=== PATIENT | male | born 1970 | race African-American/Black ===

== ENCOUNTER 2020-05-27 09:37 | Outpatient (REF) | payer MEDICARE, MEDICAID, SELFPAY | END 2020-05-27 09:38 | disposition home or self-care (01) | LOC: HO.LAB 09:37 | PROVIDERS: Visit Provider Internal Medicine | DX: Z20.822 Contact with and (suspected) exposure to COVID-19 (principal) | CPT/HCPCS: 36415; C9803; U0003 ==

== ENCOUNTER 2020-10-09 15:12 | Outpatient (REF) | payer MEDICARE, MEDICAID, SELFPAY ==
[2020-10-09 15:31] LABS: COVID-19 Test Negative (Negative); IDNOW Serial# 55D5AD1C
== END 2020-10-09 15:13 | disposition home or self-care (01) ==
LOC: HO.LAB 15:12
PROVIDERS: Visit Provider Internal Medicine
DX: Z20.822 Contact with and (suspected) exposure to COVID-19 (principal)
CPT/HCPCS: 36415; 87635; C9803

== ENCOUNTER 2020-11-29 14:01 | Outpatient (REF) | payer MEDICARE, MEDICAID, SELFPAY ==
[2020-11-30 01:15] LABS: CT PCR NOT DETECTED (Not Detect.); NG PCR DETECTED (Not Detect.)
== END 2020-11-29 14:02 | disposition home or self-care (01) ==
LOC: HO.LNP 14:01
PROVIDERS: Visit Provider Hospitalist
DX: Z11.3 Encounter for screening for infections with a predominantly sexual mode of transmission (principal); R36.9 Urethral discharge, unspecified
CPT/HCPCS: 87086; 87491; 87591

== ENCOUNTER 2021-05-04 21:33 | Emergency (ER) | payer MEDICARE, MEDICAID, SELFPAY ==
[2021-05-04 21:36] VITALS: BP 110/64; PULSE 78; O2SAT 98
[2021-05-04 21:40] VITALS: BP 135/83; PULSE 80; RESP 20; TEMP 36.6; O2SAT 99; BMI 20.6
--- NOTE | 2021-05-04 21:54 | ED_ITS ---
HPI - Nausea/Vomiting/Diarrhea General Chief complaint: Nausea/Vomiting/Diarrhea Stated complaint: ANXIETY Time Seen by Provider: 05/04/21 21:53 Source: patient Mode of arrival: EMS Limitations: no limitations History of Present Illness HPI Narrative: 51-year-old male who presents emergency department for evaluatio n of nausea vomiting and abdominal pain. Patient states that he has been sick for months. He states that any time he eats the food goes down but when it hits the stomach it causes him to have pain and caused him to vomit. He states that the pain is a dull ache which is intermittent located throughout his entire abdomen. He also states that he gets heartburn like symptoms and he points to his epigastric area. He states that the pain is moderate to severe in intensity. He states that he has not been able to eat or drink for 1 week. He denies any weight loss. The patient does drink alcohol 2 to 3 times a week and he states he did have several nips of gin prior to coming to the emergency department. The patient states that he smokes 1-1/2 oz of marijuana daily. He occasionally uses intranasal cocaine and he states that he has been buying Percocet pills on the street and has been using them intranasally as well. Related Data Home Medications Medication Instructions Recorded Confirmed albuterol sulfate mg INHALATION Q6H PRN 09/18/20 02/14/21 albuterol sulfate 90 mcg/actuation 0 mcg INHALATION 09/18/20 02/14/21 aerosol inhaler albuterol sulfate 5 mg/mL(0.5 %) 5 mg INHALATION Q6H PRN 10/21/20 02/14/21 solution for nebulization omeprazole 20 mg capsule,delayed 20 mg PO DAILY 10/21/20 02/14/21 release Previous Rx's Medication Instructions Recorded diphenhydramine-zinc acetate 1 1 appl TOPICAL QID PRN #28.3 g 10/21/20 %-0.1 % topical cream (Benadryl Itch Stopping) loratadine 10 mg tablet (Claritin) 10 mg PO DAILY PRN #30 tab 10/21/20 prednisone 50 mg tablet 50 mg PO DAILY 5 Days #5 tab 02/22/21 Flovent HFA 110 mcg/actuation 1 puff PO BID #12 g NS 03/21/21 aerosol inhaler (fluticasone propionate) omeprazole 20 mg capsule,delayed 20 mg PO DAILY 30 Days #30 cap 05/05/21 release ondansetron 4 mg disintegrating 4 mg PO Q6-8H PRN #14 tab 05/05/21 tablet Allergies Allergy/AdvReac Type Severity Reaction Status Date / Time penicillin V Allergy Unknown Nausea and Verified 05/04/21 21:39 Vomiting Penicillins [PENICILLINS] Allergy Unknown NAUSEA/VOMI Verified 05/04/21 21:39 TING MUSCLE RELAXER Allergy Unknown FOAMING AT Uncoded 05/04/21 21:39 THE MOUTH - CANNOT REMEMBER NAME OF DRUG [facility] Past Medical History Medical History (Updated 05/05/21 @ 00:22 by Keith Fulton MD) Anxiety Depression ETOH abuse GERD (gastroesophageal reflux disease) Social History Social History Advance Directives: No Physical Exam Vital Signs: Vital Signs: Last Vital Signs Temp 97.9 F 05/04/21 21:40 Pulse 65 05/04/21 23:41 Resp 17 05/04/21 23:41 BP 135/83 05/04/21 21:40 Pulse Ox 99 05/04/21 21:40 BMI result Body Mass Index 20.6 Const: Other: Awake, alert, male patient, he is actively vomiting, he is able answer all questions appropriately, he was tearful at 1 point when he started to talk about his living situation and his polysubstance use disorder. HENMT: Head: Yes normal to inspection, Yes normocephalic and Yes atraumatic Ears: external ears normal General nose exam: Normal external nose present Face and sinus: Yes normal facial exam Mouth: Normal oral and palatal mucosa present Throat: Yes posterior oropharynx normal Eyes: General: appearance normal, both eyes and all related structures Pupils: Equal, round and reactive pupils present Neck: Neck: Yes normal visual inspection, Yes no lymphadenopathy, Yes trachea midline and Yes supple Chest: Chest palpation & inspection: normal inspection of the chest and normal palpation of entire chest wall Resp: Effort & Inspection: normal respiratory effort and able to speak in complete sentences Auscultation: clear to auscultation bilaterally Cardio: Rate: regular rate Rhythm: regular rhythm Heart sounds: S1 normal heart sound present, S2 normal heart sound present and no murmurs GI: Inspection: Yes normal to inspection Palpation (GI): Soft to palpation, Tenderness to palpation present (GI) ( Diffuse abdominal tenderness) and no guarding Auscultation: normal bowel sounds : General: Yes no CVA tenderness Back/Spine/Pelvis: Back: no CVA tenderness Skin: General skin exam: no rashes or lesions noted Neuro: Cranial nerves: Yes CN's II-XII intact bilaterally and Yes Equal, round and reactive pupils present Cognition (Neuro): normal cognition Motor exam (neuro): 5/5 motor strength present throughout Extrem: General: Yes normal to inspection Psych: Appearance: grossly normal Speech and movement: Normal speech and movement present Affect: normal affect Attitude: cooperative Thought process: Normal thought process present Thought content: Normal thought content present Course Course Course Narrative: 51-year-old male who presents emergency department for evaluation of nausea vomiting abdominal pain times months, worse in the last week. Patient states that anything that he eats or drinks causes him to have abdominal pain and then causes him to vomit. He has not had any weight loss. The patient does use marijuana multiple times daily. He also uses intranasal cocaine and oxycodone. Initial vital signs were normal. physical examination did reveal that he was actively vomiting. Abdominal exam revealed diffuse a bdominal tenderness. The differential includes but is not limited to bowel obstruction, gastritis/esophagitis, cannabis induced cyclic vomiting syndrome. I did order a CBC, CMP, lipase, troponin, alcohol, urinalysis, urine drug screen, COVID-19 test. I did order IV Zofran and IV fluid however the patient refused IV since he states that he needs to calm down prior to starting this intervention. The patient was ordered Haldol 5 mg orally, Zofran 4 mg ODT, and lorazepam 2 mg orally. 0017 : Laboratory evaluation: WBC was low at 3900. AST was elevated at 38. Blood alcohol level was elevated 151. Lipase was normal. COVID-19 was negative. Urinalysis was negative. The patient did feel better after receiving the oral Haldol, Zofran and lorazepam. The nurse was able to get an IV in him and he was also given Zofran 4 mg IV and normal saline x1 L with significant improvement of his symptoms. At this time, I suspect the patient may have cannabis hyperemesis syndrome and I did discuss this with him. The patient will be started on omeprazole 20 mg once a day for 1 month and Zofran ODT 4 mg every 6-8 hours as needed for nausea and vomiting. He was given verbal and printed instructions and discharged home. MDM - Nausea/Vomiting/Diarrhea Lab Data Result diagrams: 05/04/21 22:40 05/04/21 22:40 Labs: Lab Results 05/04/21 05/04/21 05/04/21 Range/Units 22:36 22:40 22:40 WBC 3.9 L (4.8-10.8) X10*3/uL RBC 4.46 L (4.60-5.80) X10*6/uL Hgb 13.3 L (14.0-18.0) g/dl Hct 39.6 L (42.0-52.0) % MCV 88.8 (80.0-98.0) fL MCH 29.8 (27.0-33.0) pg MCHC 33.6 (31.0-36.0) g/dl RDW 13.2 (11.0-16.0) % Plt Count 292 (160-400) X10*3/uL MPV 9.2 L (9.4-12.4) fL Immature Gran % (Auto) 0.3 (0.0-0.4) % Neut % (Auto) 40.5 L (45-73) % Lymph % (Auto) 38.1 (20-40) % [place] % (Auto) 19.8 H (2-11) % Eos % (Auto) 1.0 (0-4) % Baso % (Auto) 0.3 (0-2) % Lymph # (Auto) 1.5 (1.2-4.9) X10*3/uL [place] # (Auto) 0.8 (0.1-1.2) X10*3/uL Eos # (Auto) 0.0 (0.0-0.4) X10*3/uL Baso # (Auto) 0.0 (0.0-0.2) X10*3/uL Abs Immat Gran (auto) 0.01 (0.00-0.03) X10*3/uL Absolute Neuts (auto) 1.6 L (2.0-8.3) x10*3/uL Absolute Nucleated RBC 0.000 (0.0-0.012) X10*3/uL Nucleated RBC % (auto) 0.0 (0.0-0.2) /100WBC Sodium 139 (135-145) mmol/L Potassium 4.3 (3.3-5.1) mmol/L Chloride 105 (96-108) mmol/L Carbon Dioxide 24 (22-29) mmol/L Anion Gap 14 (12-20) BUN 7 L (9-16) mg/dL Creatinine 0.99 (0.5-1.4) mg/dL Estim Creat Clear Calc 84.2 Estimated GFR > 60 Random Glucose 100 (60-115) mg/dL Calcium 9.7 (8.4-10.2) mg/dL Total Bilirubin 0.2 (0.0-1.0) mg/dL AST 38 H (5-37) U/L ALT 32 (0-40) U/L Alkaline Phosphatase 94 (39-117) U/L Troponin I High Sens (<3.5-35.0) ng/L Total Protein 7.6 (6.5-8.0) g/dL Albumin 4.5 (3.5-5.0) g/dL Lipase 18 (8-78) U/L Ethyl Alcohol mg/dL COVID-19 ([facility]) Negative (Negative) COVID-19 Clin Com See Note 05/04/21 05/04/21 Range/Units 22:40 22:40 WBC (4.8-10.8) X10*3/uL RBC (4.60-5.80) X10*6/uL Hgb (14.0-18.0) g/dl Hct (42.0-52.0) % MCV (80.0-98.0) fL MCH (27.0-33.0) pg MCHC (31.0-36.0) g/dl RDW (11.0-16.0) % Plt Count (160-400) X10*3/uL MPV (9.4-12.4) fL Immature Gran % (Auto) (0.0-0.4) % Neut % (Auto) (45-73) % Lymph % (Auto) (20-40) % [place] % (Auto) (2-11) % Eos % (Auto) (0-4) % Baso % (Auto) (0-2) % Lymph # (Auto) (1.2-4.9) X10*3/uL [place] # (Auto) (0.1-1.2) X10*3/uL Eos # (Auto) (0.0-0.4) X10*3/uL Baso # (Auto) (0.0-0.2) X10*3/uL Abs Immat Gran (auto) (0.00-0.03) X10*3/uL Absolute Neuts (auto) (2.0-8.3) x10*3/uL Absolute Nucleated RBC (0.0-0.012) X10*3/uL Nucleated RBC % (auto) (0.0-0.2) /100WBC Sodium (135-145) mmol/L Potassium (3.3-5.1) mmol/L Chloride (96-108) mmol/L Carbon Dioxide (22-29) mmol/L Anion Gap (12-20) BUN (9-16) mg/dL Creatinine (0.5-1.4) mg/dL Estim Creat Clear Calc Estimated GFR Random Glucose (60-115) mg/dL Calcium (8.4-10.2) mg/dL Total Bilirubin (0.0-1.0) mg/dL AST (5-37) U/L ALT (0-40) U/L Alkaline Phosphatase (39-117) U/L Troponin I High Sens 4.8 (<3.5-35.0) ng/L Total Protein (6.5-8.0) g/dL Albumin (3.5-5.0) g/dL Lipase (8-78) U/L Ethyl Alcohol 151 mg/dL COVID-19 ([facility]) (Negative) COVID-19 Clin Com ECG Data Attestation: I personally reviewed and interpreted this ECG as follows: Interpretation: 2229 : Normal sinus rhythm with a rate of 70, normal [place] interval, QRS duration and QTC interval, no ST segment elevation, no ST segment depression, no PACs, no PVCs, inverted T-wave in V1. Discharge Plan Discharge Clinical Impression: Cyclic vomiting syndrome, Acute dehydration, Polysubstance dependence including opioid drug with daily use Gastritis Qualifiers: Gastritis type: unspecified gastritis Chronicity: acute Gastritis bleeding: without bleeding Qualified Code(s): K29.00 - Acute gastritis without bleeding Patient Disposition: Home, Self-Care Instructions: Cyclic Vomiting Syndrome (ED), Opioid Use Disorder (ED) Additional Instructions: Your laboratory evaluation was unremarkable. Your symptoms are consistent with cyclic vomiting syndrome which is most likely caused by your daily use of marijuana. Your abdominal pain is most likely caused by inflammation of your stomach (gastritis). I am prescribing Prilosec (omeprazole) 20 mg pills, take 1 pill once a day for 1 month. This will shut down the acid production your stomach and help your stomach heal. I am also prescribing Zofran ODT 4 mg pills, 1 pill dissolved in your mouth every 8 hours as needed for nausea and vomiting. It is important that you get help with your dependence on drugs (marijuana, cocaine and opiates). Continue to use of these drugs can lead to . You should consider getting into a detox program to help you get sober. Your are being discharged home with intranasal Narcan. If you are going to continue to use oxycodone and cocaine, you should make sure that there is a sober person with you that is not using drugs and that this person can administer intranasal Narcan in the event that you stop breathing. Follow-up with your doctor in 2 days. Please return to the emergency department if your symptoms get worse or if you develop any symptoms that are concerning to you. Prescriptions: New omeprazole 20 mg capsule,delayed release(DR/EC) 20 mg PO DAILY 30 Days Qty: 30 RF: 0 ondansetron 4 mg tablet,disintegrating 4 mg PO Q6-8H PRN (Reason: nausea and vomiting) Qty: 14 RF: 0 No Action Flovent HFA 110 mcg/actuation HFA aerosol inhaler 1 puff PO BID Qty: 12 RF: 3 albuterol sulfate 90 mcg/actuation HFA aerosol inhaler 0 mcg inhalation RF: 0 albuterol sulfate 2.5 mg /3 mL (0.083 %) solution for nebulization inhalation Q6H PRNRF: 0 albuterol sulfate 5 mg/mL solution for nebulization 5 mg inhalation Q6H PRNRF: 0 omeprazole 20 mg capsule,delayed release(DR/EC) 20 mg PO DAILY RF: 0 Benadryl Itch Stopping 1-0.1 % cream 1 appl topical QID PRN (Reason: itching) Qty: 28.3 RF: 0 loratadine [Claritin] 10 mg tablet 10 mg PO DAILY PRN (Reason: itch) Qty: 30 RF: 0 prednisone 50 mg tablet 50 mg PO DAILY 5 Days Qty: 5 RF: 0
--- NOTE | 2021-05-04 21:57 | ECG_ITS ---
Test Reason : NAUSEA/VOMITTING Blood Pressure : / mmHG Vent. Rate : 070 BPM Atrial Rate : 070 BPM P-R Int : 166 ms QRS Dur : 094 ms QT Int : 410 ms P-R-T Axes : 070 073 049 degrees QTc Int : 442 ms Normal sinus rhythm Possible Left atrial enlargement Borderline ECG When compared with ECG of 28-MAY-2019 10:19, Vent. rate has decreased BY 36 BPM Referred By: Keith Fulton Electronically Signed By:Rufus Higgins
--- NOTE | 2021-05-04 22:08 | PC.NURSE ---
MD at bedside multiple times discussing plan of care with pt. Pt repeatedly refusing IV and labs. Pt also refusing IM medications, states I have so much anxiety, I can't do needles!! MD aware that pt is noncompliant with care.
[2021-05-04] MEDS: LORazepam 1 MG TABLET 2 MG PO (22:31)
[2021-05-04] MEDS: Ondansetron ODT 4 MG TAB.RAPDIS TRANSLINGU (22:31)
[2021-05-04] MEDS: HaloperidoL 5 MG TABLET PO (22:31)
--- NOTE | 2021-05-04 22:37 | PC.NURSE ---
process tech at bedside for EKG and Covid swab. Pt medicated per JUL. Pt continues refusing labs and IV.
[2021-05-04 22:44] LABS: MANUAL DIFF FLAG NO
[2021-05-04 22:46] LABS: Basophils Percent Auto 0.3 % (0-2); Hematocrit 39.6 % (42.0-52.0); Hemoglobin 13.3 g/dl (14.0-18.0); Imm Gran Abs Auto 0.01 X10*3/uL (0.00-0.03); Imm Gran Pct Auto 0.3 % (0.0-0.4); Lymphocytes Absolute Auto 1.5 X10*3/uL (1.2-4.9); Lymphocytes Percent Auto 38.1 % (20-40); Mean Corpuscular HGB Conc 33.6 g/dl (31.0-36.0); Mean Corpuscular Hemoglobin 29.8 pg (27.0-33.0); Mean Corpuscular Volume 88.8 fL (80.0-98.0); Mean Platelet Volume 9.2 fL (9.4-12.4); Monocytes Absolute Auto 0.8 X10*3/uL (0.1-1.2); Monocytes Percent Auto 19.8 % (2-11); Neutrophils Absolute Auto 1.6 x10*3/uL (2.0-8.3); Neutrophils Percent Auto 40.5 % (45-73); Platelet Count 292 X10*3/uL (160-400); Red Blood Count 4.46 X10*6/uL (4.60-5.80); Red Cell Distribution Width 13.2 % (11.0-16.0); White Blood Count 3.9 X10*3/uL (4.8-10.8)
[2021-05-04 23:03] LABS: COVID-19 Test Negative (Negative)
[2021-05-04 23:06] LABS: Ethanol 151 mg/dL
[2021-05-04 23:09] LABS: Alanine Aminotransferase 32 U/L (0-40); Albumin Level 4.5 g/dL (3.5-5.0); Alkaline Phosphatase 94 U/L (39-117); Anion Gap 14 (12-20); Aspartate Amino Transferase 38 U/L (5-37); Bilirubin Total 0.2 mg/dL (0.0-1.0); Blood Urea Nitrogen 7 mg/dL (9-16); Calcium 9.7 mg/dL (8.4-10.2); Carbon Dioxide 24 mmol/L (22-29); Chloride 105 mmol/L (96-108); Creatinine Clr Calc Pharmacy 84.2; Estimated Glomerular Filt Rate > 60; Glucose Random 100 mg/dL (60-115); Lipase 18 U/L (8-78); Potassium 4.3 mmol/L (3.3-5.1); Sodium 139 mmol/L (135-145); Total Protein 7.6 g/dL (6.5-8.0)
[2021-05-04 23:15] LABS: Troponin-I High Sensitivity 4.8 ng/L (<3.5-35.0)
[2021-05-04 23:41] VITALS: PULSE 65; RESP 17
--- NOTE | 2021-05-05 00:13 | PC.NURSE ---
MD at bedside discussing results and plan of care.
[2021-05-05] MEDS: Naloxone HCl Nasal TAKE HOME 4 MG SPRAY NOSTRILALT (00:28)
== END 2021-05-05 00:35 | disposition home or self-care (01) ==
PROVIDERS: Emergency Provider Emergency Medicine Emergency Medical Services; PCP Family Medicine
DX: K29.00 Acute gastritis without bleeding (principal); R11.15 Cyclical vomiting syndrome unrelated to migraine; E86.0 Dehydration; F10.10 Alcohol abuse, uncomplicated; Y90.6 Blood alcohol level of 120-199 mg/100 ml; Z20.822 Contact with and (suspected) exposure to COVID-19; F41.9 Anxiety disorder, unspecified; F11.20 Opioid dependence, uncomplicated; F19.20 Other psychoactive substance dependence, uncomplicated; F12.90 Cannabis use, unspecified, uncomplicated; F14.90 Cocaine use, unspecified, uncomplicated
CPT/HCPCS: 36415; 80053; 82077; 83690; 84484; 85025; 87635; 93005; 96361; 96374; 99283; 99284

== ENCOUNTER 2021-06-22 13:45 | Emergency (ER) | payer MEDICARE, MEDICAID, SELFPAY ==
[2021-06-22 13:50] VITALS: BP 133/88; PULSE 82; RESP 16; TEMP 36.6; O2SAT 98; BMI 21.4
--- NOTE | 2021-06-22 14:09 | ED.EXTPRO ---
HPI - Extremity Problem General Chief complaint: Extremity Problem Stated complaint: hand swelling Time Seen by Provider: 06/22/21 14:08 Source: patient Mode of arrival: ambulatory Limitations: no limitations History of Present Illness HPI Narrative: Patient is a 51 year old male presenting to the emergency department today with right hand pain. Patient states that he has an extensive history of gout, and he is having an active flare in his right hand. Patient states he has been unable to contact his primary care provider. Patient denies any dizziness, lightheadedness, abdominal pain, nausea, vomiting, fever, chills, blurry vision, double vision, loss of vision, chest pain, difficulty breathing, shortness of breath, back pain, night sweats, pain with urination, increased urinary frequency, increased urinary urgency, blood in his urine or stool, syncope or a near syncopal episode, recent trauma or falls, bowel incontinence, bladder incontinence, bowel retention, bladder retention, or any other complaints at this time. MD Complaint: other (Right hand pain) Onset (ago): month(s) (1) Pain Consistency: constant Location: right (And) Severity scale (1-10): 3 Quality: dull Radiation: none Relieving factors: nothing Exacerbating factors: nothing Associated symptoms: denies other symptoms Related Data Home Medications Medication Instructions Recorded Confirmed albuterol sulfate mg INHALATION Q6H PRN 09/18/20 02/14/21 albuterol sulfate 90 mcg/actuation 0 mcg INHALATION 09/18/20 02/14/21 aerosol inhaler albuterol sulfate 5 mg/mL(0.5 %) 5 mg INHALATION Q6H PRN 10/21/20 02/14/21 solution for nebulization omeprazole 20 mg capsule,delayed 20 mg PO DAILY 10/21/20 02/14/21 release Previous Rx's Medication Instructions Recorded diphenhydramine-zinc acetate 1 1 appl TOPICAL QID PRN #28.3 g 10/21/20 %-0.1 % topical cream (Benadryl Itch Stopping) loratadine 10 mg tablet (Claritin) 10 mg PO DAILY PRN #30 tab 10/21/20 prednisone 50 mg tablet 50 mg PO DAILY 5 Days #5 tab 02/22/21 Flovent HFA 110 mcg/actuation 1 puff PO BID #12 g NS 03/21/21 aerosol inhaler (fluticasone propionate) omeprazole 20 mg capsule,delayed 20 mg PO DAILY 30 Days #30 cap 05/05/21 release ondansetron 4 mg disintegrating 4 mg PO Q6-8H PRN #14 tab 05/05/21 tablet naproxen 500 mg tablet 500 mg PO BID 7 Days #14 tab 06/22/21 Allergies Allergy/AdvReac Type Severity Reaction Status Date / Time penicillin V Allergy Unknown Nausea and Verified 05/04/21 21:39 Vomiting Penicillins [PENICILLINS] Allergy Unknown NAUSEA/VOMI Verified 05/04/21 21:39 TING MUSCLE RELAXER Allergy Unknown FOAMING AT Uncoded 05/04/21 21:39 THE MOUTH - CANNOT REMEMBER NAME OF DRUG Review of Systems Constitutional: Constitutional: Reports no additional constitutional complaints, Denies chills, Denies fever(s) and Denies night sweats Eyes: Eyes: Reports no additional eye complaints, Denies blurry vision, Denies change in vision, Denies diplopia, Denies eye discharge, Denies loss of vision and Denies eye pain ENT: Denies dizziness Cardiovascular: Cardiovascular: Reports no additional cardiovascular complaints, Denies chest pain, Denies lightheadedness, Denies Loss of Consciousness and Denies dyspnea Respiratory: Respiratory: Reports no additional respiratory complaints and Denies dyspnea Gastrointestinal: Gastrointestinal: Reports no additional gastrointestinal complaints, Denies abdominal pain, Denies melena, Denies hematochezia, Denies change in bowel habits and Denies change in stool character Genitourinary: Genitourinary: Reports no additional male genitourinary complaints, Denies hematuria, Denies oliguria, Denies difficulty urinating, Denies dysuria, Denies urinary frequency, Denies urinary hesitancy, Denies urinary incontinence and Denies urinary urgency Comments: Right hand pain Musculoskeletal: Musculoskeletal: Reports no additional musculoskeletal complaints, Denies numbness and Denies tingling Neurologic: Denies dizziness, Denies loss of vision, Denies numbness and Denies tingling Psychiatric: Psychiatric: Reports no additional psychiatric complaints Endocrine: Endocrine: Reports no additional endocrine complaints Hematologic/Lymphatic: Hematologic/Lymphatic: Reports no additional hematologic/lymphatic complaints Allergic/Immunologic: Allergic/Immunologic: Reports no additional allergic/immunologic complaints PMFSH Past Medical History Attestation statement: The following information was validated with the patient. Source: old records reviewed Medical History Anxiety Depression ETOH abuse GERD (gastroesophageal reflux disease) Social History Social History Advance Directives: No Advance Directives Information Provided: No Physical Exam Vital Signs: Vital Signs: Last Vital Signs Temp 98 F 06/22/21 13:50 Pulse 82 06/22/21 13:50 Resp 16 06/22/21 13:50 BP 133/88 06/22/21 13:50 Pulse Ox 98 06/22/21 13:50 BMI result Body Mass Index 21.4 Const: General: cooperative, no acute distress, alert and awake Nutritional Appearance: well nourished Orientation/consciousness: patient oriented x3 Limitations: no limitations HENMT: Head: Yes normal to inspection and Yes atraumatic Ears: hearing grossly normal bilaterally and external ears normal General nose exam: Normal external nose present, no nasal discharge noted and no epistaxis Face and sinus: Yes normal facial exam, No abrasion and No laceration Mouth: Normal oral and palatal mucosa present, no drooling and no muffled voice Eyes: General: appearance normal, both eyes and all related structures Periorbital: periorbital findings normal Eyelids: Yes eyelids normal Conjunctivae: conjunctivae normal Pupils: Equal, round and reactive pupils present EOM: EOMs intact bilaterally Neck: Neck: Yes normal visual inspection, Yes full ROM and Yes no lymphadenopathy Chest: Chest palpation & inspection: normal inspection of the chest Resp: Effort & Inspection: normal respiratory effort and able to speak in complete sentences GI: Inspection: Yes normal to inspection Neuro: General: patient oriented x3 and moves all extremities Cranial nerves: Yes Equal, round and reactive pupils present Cognition (Neuro): normal cognition Motor exam (neuro): 5/5 motor strength present throughout Sensory Exam: Normal double simultaneous stimulation for sensation Coordination: [id number] test normal Extrem: General: Yes normal to inspection, Yes full ROM and Yes capillary refill normal Psych: Appearance: grossly normal Mental Status: mental status grossly normal Affect: normal affect Attitude: cooperative Thought process: Normal thought process present Thought content: Normal thought content present Insight: Good insight present (Psych) MDM - Extremity (Nontraumatic) MDM Narrative Medical decision making narrative: Patient is a 51 year old male presenting to the emergency department today with a gout flare in the right hand. Patient's physical exam showed mild swelling to the right hand. I explained my physical exam findings as well to the patient. I answered all questions asked by the patient. I stressed the importance of the patient taking his medication as prescribed. I stressed the importance of the patient following up with his primary care provider. I stressed the importance of the patient returning to the emergency department immediately if his symptoms were to worsen or if he were to develop any dizziness, shortness of breath, difficulty breathing, chest pain, blurry vision, loss of vision, nausea, vomiting, abdominal pain, fever, chills, back pain, or any other complaints. Patient verbalized agreement and understanding with this treatment plan and discharge. Differential Diagnosis Differential diagnosis: Likely gout Medical Records Attestation: I reviewed the patient's medical records. Discharge Plan Discharge Clinical Impression: Gout Patient Disposition: Home, Self-Care Instructions: Gout (ED) Additional Instructions: Follow up with your primary care provider. Return to the emergency department immediately if your symptoms worsen or if you develop any dizziness, shortness of breath, difficulty breathing, chest pain, blurry vision, loss of vision, nausea, vomiting, abdominal pain, fever, chills, back pain, or any other complaints. Prescriptions: New naproxen 500 mg tablet 500 mg PO BID 7 Days Qty: 14 0RF No Action Flovent HFA 110 mcg/actuation HFA aerosol inhaler 1 puff PO BID Qty: 12 3RF omeprazole 20 mg capsule,delayed release(DR/EC) 20 mg PO DAILY 30 Days Qty: 30 0RF ondansetron 4 mg tablet,disintegrating 4 mg PO Q6-8H PRN (Reason: nausea and vomiting) Qty: 14 0RF albuterol sulfate 90 mcg/actuation HFA aerosol inhaler 0 mcg inhalation 0RF albuterol sulfate 2.5 mg /3 mL (0.083 %) solution for nebulization inhalation Q6H PRN0RF albuterol sulfate 5 mg/mL solution for nebulization 5 mg inhalation Q6H PRN0RF omeprazole 20 mg capsule,delayed release(DR/EC) 20 mg PO DAILY 0RF Benadryl Itch Stopping 1-0.1 % cream 1 appl topical QID PRN (Reason: itching) Qty: 28.3 0RF loratadine [Claritin] 10 mg tablet 10 mg PO DAILY PRN (Reason: itch) Qty: 30 0RF prednisone 50 mg tablet 50 mg PO DAILY 5 Days Qty: 5 0RF Referrals: Noel Balderas MD [Physician] - 2 days Interventions: ED Discharge Assessment Last Done: 06/22/21 14:25 Discharge Date/Time: 06/22/21 14:26 Print Language: Hungarian
== END 2021-06-22 14:26 | disposition home or self-care (01) ==
LOC: HO.ED 14:20
PROVIDERS: Emergency Provider Emergency Medicine
DX: M10.9 Gout, unspecified (principal); R60.0 Localized edema; Z79.899 Other long term (current) drug therapy
CPT/HCPCS: 29125; 99284

== ENCOUNTER 2021-10-06 02:02 | Emergency (ER) | payer OTHER, SELFPAY ==
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
[2021-10-06 02:11] VITALS: BP 128/96; PULSE 94; RESP 18; TEMP 36.8; O2SAT 96; BMI 20.9
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
[2021-10-06] MEDS: Acetaminophen 325 MG TABLET 975 MG PO (04:54)
[2021-10-06] MEDS: Ketorolac Tromethamine 15 MG/ML VIAL IM (04:55)
[2021-10-06] MEDS: Lidocaine 4 % Patch ADH..PATCH 1 PATCH TRANSDERMA (04:55)
== END 2021-10-06 05:09 | disposition home or self-care (01) ==
PROVIDERS: Emergency Provider Student in an Organized Health Care Education/Training Program
DX: S49.91XA Unspecified injury of right shoulder and upper arm, initial encounter (principal); M25.511 Pain in right shoulder; V43.52XA Car driver injured in collision with other type car in traffic accident, initial encounter; Y93.9 Activity, unspecified; Y92.410 Unspecified street and highway as the place of occurrence of the external cause; Y99.9 Unspecified external cause status; Z79.899 Other long term (current) drug therapy
CPT/HCPCS: 73030; 96372; 99282; 99284; J1885

== ENCOUNTER 2021-11-04 21:28 | Emergency (ER) | payer MEDICARE, MEDICAID, SELFPAY ==
--- NOTE | 2021-11-04 | ECG_ITS ---
Test Reason : CHEST PAIN Blood Pressure : / mmHG Vent. Rate : 086 BPM Atrial Rate : 086 BPM P-R Int : 148 ms QRS Dur : 084 ms QT Int : 360 ms P-R-T Axes : 065 071 052 degrees QTc Int : 430 ms Normal sinus rhythm Minimal voltage criteria for LVH, may be normal variant ( Sokolow-Duong ) Borderline ECG When compared with ECG of 04-MAY-2021 22:29, No significant change was found Referred By: Generic ED Physician Electronically Signed By:JOHANNA CRESPO
--- NOTE | ~2021-11-04 | CT_ITS ---
EXAMINATION: CT ABDOMEN AND PELVIS WITHOUT CONTRAST CLINICAL INFORMATION: Flank pain. COMPARISON: None TECHNIQUE: Multidetector volumetric imaging was performed from the superior aspect of the liver through the pubic symphysis. Sagittal and coronal reformatted images were obtained on the technologist's workstation. This CT examination was performed using dose optimization techniques as appropriate, variously including the following: *Automated exposure control *Adjustment of mA and/or kV according to patient size (this includes techniques or standardized protocols for targeted exams where dose is matched to indication/reason for exam; i.e. extremities or head) *Use of iterative reconstruction technique DLP: 428 mGy-cm FINDINGS: LUNG BASES: The visualized lung bases are unremarkable. LIVER, GALLBLADDER, AND BILIARY TREE: The liver is normal in size, shape, and attenuation. No focal hepatic lesion or biliary ductal dilatation is present. The gallbladder is unremarkable with no evidence of radiopaque gallstones, gallbladder wall thickening, or obvious pericholecystic inflammatory changes. PANCREAS: Unremarkable. SPLEEN: Unremarkable. ADRENAL GLANDS: Unremarkable. KIDNEYS AND URETERS: The kidneys are normal in size, shape, and attenuation. No hydronephrosis, hydroureter, or calculi seen. No perinephric stranding. BLADDER: Unremarkable. GASTROINTESTINAL TRACT: The stomach is unremarkable. Normal caliber small bowel. There is no obstruction. No colonic wall thickening or inflammatory change. Scattered colonic diverticulosis without diverticulitis. Normal appendix. No free air or free fluid. ABDOMINAL WALL: No significant hernia is appreciated. LYMPH NODES: Normal. VASCULAR: Unremarkable. PELVIC VISCERA: The prostate and seminal vesicles are unremarkable. OSSEOUS STRUCTURES: No acute or suspicious osseous abnormality. Mild degenerative changes of the hips. CT/CT abdomen pelvis wo con IMPRESSION: No acute findings. No hydronephrosis or nephrolithiasis. There is colonic diverticulosis without evidence of acute diverticulitis. Fleischner guidelines were followed.
[2021-11-04 21:50] VITALS: BP 114/79; PULSE 86; RESP 15; TEMP 36.8; O2SAT 97; BMI 21.7
[2021-11-04 22:09] LABS: Basophils Percent Auto 0.7 % (0-2); Eosinophils Absolute Auto 0.1 X10*3/uL (0.0-0.4); Eosinophils Percent Auto 1.1 % (0-4); Hematocrit 39.3 % (42.0-52.0); Imm Gran Abs Auto 0.01 X10*3/uL (0.00-0.03); Imm Gran Pct Auto 0.2 % (0.0-0.4); Lymphocytes Absolute Auto 1.4 X10*3/uL (1.2-4.9); Lymphocytes Percent Auto 32.4 % (20-40); MANUAL DIFF FLAG SCAN; Mean Corpuscular HGB Conc 33.1 g/dl (31.0-36.0); Mean Corpuscular Hemoglobin 29.3 pg (27.0-33.0); Mean Corpuscular Volume 88.7 fL (80.0-98.0); Monocytes Absolute Auto 1.2 X10*3/uL (0.1-1.2); Monocytes Percent Auto 26.9 % (2-11); Neutrophils Absolute Auto 1.7 x10*3/uL (2.0-8.3); Neutrophils Percent Auto 38.7 % (45-73); Platelet Count 237 X10*3/uL (160-400); Red Blood Count 4.43 X10*6/uL (4.60-5.80); Red Cell Distribution Width 13.4 % (11.0-16.0); SCAN SMEAR FLAG 1; White Blood Count 4.4 X10*3/uL (4.8-10.8)
[2021-11-04 22:39] LABS: SLIDE REVIEW VERIFIED
[2021-11-04 22:48] LABS: Alanine Aminotransferase 31 U/L (0-40); Albumin Level 4.5 g/dL (3.5-5.0); Alkaline Phosphatase 119 U/L (39-117); Anion Gap 15 (12-20); Aspartate Amino Transferase 41 U/L (5-37); Bilirubin Total 0.4 mg/dL (0.0-1.0); Blood Urea Nitrogen 10 mg/dL (9-16); Calcium 9.4 mg/dL (8.4-10.2); Carbon Dioxide 23 mmol/L (22-29); Chloride 106 mmol/L (96-108); Creatinine Clr Calc Pharmacy 93.2; Estimated Glomerular Filt Rate > 60; Glucose Random 86 mg/dL (60-115); Potassium 4.3 mmol/L (3.3-5.1); Sodium 140 mmol/L (135-145); Total Protein 7.7 g/dL (6.5-8.0)
[2021-11-04 22:49] LABS: Alanine Aminotransferase 33 U/L (0-40); Albumin Level 4.5 g/dL (3.5-5.0); Alkaline Phosphatase 121 U/L (39-117); Aspartate Amino Transferase 41 U/L (5-37); Bilirubin Direct 0.2 mg/dL (0.0-0.5); Bilirubin Total 0.4 mg/dL (0.0-1.0); Lipase 15 U/L (8-78); Total Protein 7.8 g/dL (6.5-8.0)
[2021-11-04 22:50] LABS: Troponin-I High Sensitivity 4.2 ng/L (<3.5-35.0)
--- NOTE | 2021-11-04 23:36 | ED_ITS ---
HPI - Abdominal Pain General Chief Complaint: Abdominal Pain Stated Complaint: Chest pain Source: patient Mode of arrival: ambulatory Limitations: no limitations History of Present Illness HPI narrative: 51-year-old male presents for right-sided chest and flank pain, right upper abdominal pain, and fatigue. States that the pain radiates to his right shoulder. He does drink alcohol but not on a regular basis. He does not report fevers, chills, chest pressure, palpitations, dizziness, weakness, diaphoresis, abdominal distention dysuria, hematuria or weakness. MD elicited complaint: abdominal pain and flank pain Pertinent past history: none Onset (ago): day(s) (2) Pain Consistency: constant Location: RUQ and R flank Severity: moderate Pain scale (0-10): 7 Quality: aching Radiation: none Migration to: no migration Exacerbating factors: eating and movement Relieving factors: nothing Associated symptoms: denies other symptoms Related Data Home Medications Medication Instructions Recorded Confirmed albuterol sulfate mg inhalation Q6H PRN 09/18/20 02/14/21 albuterol sulfate 90 mcg/actuation 0 mcg inhalation 09/18/20 02/14/21 aerosol inhaler albuterol sulfate 5 mg/mL(0.5 %) 5 mg inhalation Q6H PRN 10/21/20 02/14/21 solution for nebulization omeprazole 20 mg capsule,delayed 20 mg PO DAILY 10/21/20 02/14/21 release Previous Rx's Medication Instructions Recorded diphenhydramine-zinc acetate 1 1 appl topical QID PRN itching 10/21/20 %-0.1 % topical cream (Benadryl #28.3 grams Itch Stopping) loratadine 10 mg tablet (Claritin) 10 mg PO DAILY PRN itch #30 tabs 10/21/20 prednisone 50 mg tablet 50 mg PO DAILY 5 days #5 tabs 02/22/21 Flovent HFA 110 mcg/actuation 1 puff PO BID #12 grams 03/21/21 aerosol inhaler (fluticasone propionate) omeprazole 20 mg capsule,delayed 20 mg PO DAILY 30 days #30 caps 05/05/21 release ondansetron 4 mg disintegrating 4 mg PO Q6-8H PRN nausea and 05/05/21 tablet vomiting #14 tabs naproxen 500 mg tablet 500 mg PO BID 7 days #14 tabs 06/22/21 Allergies Allergy/AdvReac Type Severity Reaction Status Date / Time penicillin V Allergy Unknown Nausea and Verified 10/06/21 02:10 Vomiting Penicillins [PENICILLINS] Allergy Unknown NAUSEA/VOMI Verified 10/06/21 02:10 TING MUSCLE RELAXER Allergy Unknown FOAMING AT Uncoded 10/06/21 02:10 THE MOUTH - CANNOT REMEMBER NAME OF DRUG Review of Systems Review of Systems Constitutional: No Fever, No Chills ENT/Mouth: No Ear Pain, No Hoarseness, No sore throat Eyes: No Eye Pain, No Swelling, No Redness, No Foreign Body Cardiovascular: Positive right-sided Chest Pain, No SOB Respiratory: No Cough, No Dyspnea Gastrointestinal: No Nausea, No Vomiting, No Diarrhea, positive abdominal Pain, positive right flank pain Genitourinary: No Dysuria, No Hematuria Musculoskeletal: No joint pain, No Myalgias, No Joint Swelling Skin: No Skin lacerations, No rash Neuro: No Weakness, No Numbness, No Paresthesias, No Loss of Consciousness, No Dizziness, No Headache Psych: No Anxiety/Panic, No Depression Heme/Lymph: no easy bruising, no Lymphadenopathy Endocrine: No Polyuria, No Polydipsia Yes all other systems are reviewed and are negative [facility] Past Medical History Attestation statement: The following information was validated with the patient. Source: old records reviewed Medical History Anxiety Depression ETOH abuse GERD (gastroesophageal reflux disease) Social History Social History Advance Directives: No Advance Directives Information Provided: Yes Physical Exam ED Vital Signs: Vital Signs - 24 hr 11/04/21 21:50 11/04/21 23:58 Temperature 98.2 F 98.4 F Pulse Rate 86 67 Respiratory Rate 15 16 Blood Pressure 114/79 119/75 Pulse Oximetry 97 98 Oxygen Delivery Method Room Air Room Air BMI result Body Mass Index 21.7 Appearance: Alert. Oriented X3. Mild distress. Eyes: Pupils equal, round and reactive to light. EOMI. Sclera nonicteric. ENT: Pharynx normal. Moist mucous membranes. Neck: Normal inspection. Neck supple. No JVD. CVS: Normal heart rate and rhythm. Apical pulse equal pulses to extremities. Respiratory: No respiratory distress. Breath sounds normal. Abdomen: Soft and tender to palpation. Positive Lucero's, negative McBurney's. No rigidity or distention. No pedal splenomegaly. Skin: Skin warm and dry. Normal skin color. Normal skin turgor. Extremities: No lower extremity edema. Moves all extremities against resistance. Get well-balanced well-coordinated Neuro: No motor deficit. No sensory deficit. Cranial nerves 2-12 intact Course Course Course Narrative: 51-year-old male presents with right upper quadrant and right chest wall pain that radiates to the right scapula and his back. Pain is worse on palpation, states that he took some Advil but could not get comfortable. he does drink alcohol but not in the past few days. He denies fevers, chills, nausea, vomiting, diarrhea, abdominal distention, lightheadedness, dizziness, weakness and palpitations. Physical exam indicates positive McBurney, no distention or rigidity. Labs drawn while patient was in the emergency department waiting room indicating elevated LFTs. Will order CT scan of abdomen pelvis. EKG normal sinus. 00:15 patient respectfully declined medications. Patient's wishes respected. sign out to dr cabrera. ct scan pending. 11/05/2021, 16:00. Patient was discharged last night CT scan was negative. Chart not completed at that time for downtime. MDM - Abdominal Pain Differential Diagnosis Differential diagnosis: Likely abdominal pain, acute appendicitis, calculus of kidney, diverticulitis, pancreatitis and renal colic Differential diagnosis narrative:: Cholecystitis, cholelithiasis Medical Records Attestation: I reviewed the patient's medical records. Lab Data Attestation: I reviewed the patient's lab results. Result diagrams: 11/04/21 22:03 11/04/21 22:03 Labs: Lab Results 11/04/21 11/04/21 11/04/21 Range/Units 22:03 22:03 22:03 WBC 4.4 L (4.8-10.8) X10*3/uL RBC 4.43 L (4.60-5.80) X10*6/uL Hgb 13.0 L (14.0-18.0) g/dl Hct 39.3 L (42.0-52.0) % MCV 88.7 (80.0-98.0) fL MCH 29.3 (27.0-33.0) pg MCHC 33.1 (31.0-36.0) g/dl RDW 13.4 (11.0-16.0) % Plt Count 237 (160-400) X10*3/uL MPV 9.0 L (9.4-12.4) fL Immature Gran % (Auto) 0.2 (0.0-0.4) % Neut % (Auto) 38.7 L (45-73) % Lymph % (Auto) 32.4 (20-40) % Lamar % (Auto) 26.9 H (2-11) % Eos % (Auto) 1.1 (0-4) % Baso % (Auto) 0.7 (0-2) % Lymph # (Auto) 1.4 (1.2-4.9) X10*3/uL Lamar # (Auto) 1.2 (0.1-1.2) X10*3/uL Eos # (Auto) 0.1 (0.0-0.4) X10*3/uL Baso # (Auto) 0.0 (0.0-0.2) X10*3/uL Abs Immat Gran (auto) 0.01 (0.00-0.03) X10*3/uL Absolute Neuts (auto) 1.7 L (2.0-8.3) x10*3/uL Absolute Nucleated RBC 0.000 (0.0-0.012) X10*3/uL Nucleated RBC % (auto) 0.0 (0.0-0.2) /100WBC Smear Tech's Comments VERIFIED Sodium 140 (135-145) mmol/L Potassium 4.3 (3.3-5.1) mmol/L Chloride 106 (96-108) mmol/L Carbon Dioxide 23 (22-29) mmol/L Anion Gap 15 (12-20) BUN 10 (9-16) mg/dL Creatinine 0.94 (0.5-1.4) mg/dL Estim Creat Clear Calc 93.2 Estimated GFR > 60 Random Glucose 86 (60-115) mg/dL Calcium 9.4 (8.4-10.2) mg/dL Total Bilirubin 0.4 (0.0-1.0) mg/dL Direct Bilirubin (0.0-0.5) mg/dL AST 41 H (5-37) U/L ALT 31 (0-40) U/L Alkaline Phosphatase 119 H D (39-117) U/L Troponin I High Sens 4.2 (<3.5-35.0) ng/L Total Protein 7.7 (6.5-8.0) g/dL Albumin 4.5 (3.5-5.0) g/dL Lipase (8-78) U/L COVID-19 (ARAM) (Negative) COVID-19 Clin Com 11/04/21 11/05/21 Range/Units 22:03 00:11 WBC (4.8-10.8) X10*3/uL RBC (4.60-5.80) X10*6/uL Hgb (14.0-18.0) g/dl Hct (42.0-52.0) % MCV (80.0-98.0) fL MCH (27.0-33.0) pg MCHC (31.0-36.0) g/dl RDW (11.0-16.0) % Plt Count (160-400) X10*3/uL MPV (9.4-12.4) fL Immature Gran % (Auto) (0.0-0.4) % Neut % (Auto) (45-73) % Lymph % (Auto) (20-40) % Lamar % (Auto) (2-11) % Eos % (Auto) (0-4) % Baso % (Auto) (0-2) % Lymph # (Auto) (1.2-4.9) X10*3/uL Lamar # (Auto) (0.1-1.2) X10*3/uL Eos # (Auto) (0.0-0.4) X10*3/uL Baso # (Auto) (0.0-0.2) X10*3/uL Abs Immat Gran (auto) (0.00-0.03) X10*3/uL Absolute Neuts (auto) (2.0-8.3) x10*3/uL Absolute Nucleated RBC (0.0-0.012) X10*3/uL Nucleated RBC % (auto) (0.0-0.2) /100WBC Smear Tech's Comments Sodium (135-145) mmol/L Potassium (3.3-5.1) mmol/L Chloride (96-108) mmol/L Carbon Dioxide (22-29) mmol/L Anion Gap (12-20) BUN (9-16) mg/dL Creatinine (0.5-1.4) mg/dL Estim Creat Clear Calc Estimated GFR Random Glucose (60-115) mg/dL Calcium (8.4-10.2) mg/dL Total Bilirubin 0.4 (0.0-1.0) mg/dL Direct Bilirubin 0.2 (0.0-0.5) mg/dL AST 41 H (5-37) U/L ALT 33 (0-40) U/L Alkaline Phosphatase 121 H (39-117) U/L Troponin I High Sens (<3.5-35.0) ng/L Total Protein 7.8 (6.5-8.0) g/dL Albumin 4.5 (3.5-5.0) g/dL Lipase 15 (8-78) U/L COVID-19 (ARAM) Negative (Negative) COVID-19 Clin Com See Note ECG Data Attestation: I personally reviewed and interpreted this ECG as follows: ECG interpretation date: 11/04/21 ECG interpretation time: 21:27 Prior ECG tracings: available for review Interpretation: Vent. rate 86 BPM HI interval 148 ms QRS duration 84 ms QT/QTc 360/430 ms P-R-T axes 65 71 52 Normal sinus rhythm Minimal voltage criteria for LVH, may be normal variant ( Sokolow-Duong ) Borderline ECG When compared with ECG of 04-MAY-2021 22:29, No significant change was found Discharge Plan Discharge Clinical Impression: Abdominal pain Patient Disposition: Home, Self-Care Instructions: Abdominal Pain (ED) Additional Instructions: CT scan negative. Follow-up with Dr. Klein Thank you for choosing this emergency department for evaluation. Please follow-up with primary care physician as needed. Return to the emergency department for any new, concerning, or worsening symptoms. Prescriptions: No Action Flovent HFA 110 mcg/actuation HFA aerosol inhaler 1 puff PO BID Qty: 12 3RF naproxen 500 mg tablet 500 mg PO BID 7 Days Qty: 14 0RF omeprazole 20 mg capsule,delayed release(DR/EC) 20 mg PO DAILY 30 Days Qty: 30 0RF ondansetron 4 mg tablet,disintegrating 4 mg PO Q6-8H PRN (Reason: nausea and vomiting) Qty: 14 0RF albuterol sulfate 90 mcg/actuation HFA aerosol inhaler 0 mcg inhalation albuterol sulfate 2.5 mg /3 mL (0.083 %) solution for nebulization inhalation Q6H PRN albuterol sulfate 5 mg/mL solution for nebulization 5 mg inhalation Q6H PRN omeprazole 20 mg capsule,delayed release(DR/EC) 20 mg PO DAILY Benadryl Itch Stopping 1-0.1 % cream 1 appl topical QID PRN (Reason: itching) Qty: 28.3 0RF loratadine [Claritin] 10 mg tablet 10 mg PO DAILY PRN (Reason: itch) Qty: 30 0RF prednisone 50 mg tablet 50 mg PO DAILY 5 Days Qty: 5 0RF Discharge Date/Time: 11/05/21 01:43
[2021-11-04 23:58] VITALS: BP 119/75; PULSE 67; RESP 16; TEMP 36.9; O2SAT 98
--- NOTE | 2021-11-05 00:03 | PC.NURSE ---
pt declined all medication - reports that pain is chronic and he is tolerating it.
[2021-11-05 00:31] LABS: COVID-19 Test Negative (Negative)
== END 2021-11-05 01:43 | disposition home or self-care (01) ==
PROVIDERS: Nurse Practitioner Family; Emergency Provider Emergency Medicine
DX: R10.11 Right upper quadrant pain (principal); R07.89 Other chest pain; Z20.822 Contact with and (suspected) exposure to COVID-19
CPT/HCPCS: 36415; 74176; 80053; 80076; 82248; 83690; 84484; 85025; 87635; 93005; 96361; 96374; 96375; 99283; 99284

== ENCOUNTER 2022-01-02 18:00 | Outpatient (REF) | payer MEDICARE, MEDICAID, SELFPAY ==
[2022-01-03 10:12] LABS: CT PCR NOT DETECTED (Not Detect.); NG PCR NOT DETECTED (Not Detect.)
== END 2022-01-02 18:01 | disposition home or self-care (01) ==
LOC: HO.LNP 18:00
PROVIDERS: Visit Provider Nurse Practitioner Family
DX: Z11.3 Encounter for screening for infections with a predominantly sexual mode of transmission (principal)
CPT/HCPCS: 87491; 87591

== ENCOUNTER 2022-01-03 08:53 | Outpatient (REF) | payer MEDICARE, MEDICAID, SELFPAY ==
[2022-01-05 03:38] LABS: HBS Num1 0.59 mIU/mL (0-7.99); HBsAGNum1 0.25 S/CO (0.00-0.99); HIV AB/AG Nonreactive (Nonreactive); HIV Num 1 0.08 S/CO (0.00-0.99); Hepatitis B Core Antibody Nonreactive (Nonreactive); Hepatitis B Surface Antigen Negative (Negative); ~HepC Num1 0.08 S/CO (0.00-0.79); ~Hepatitis B Surface Antibody NONREACTIVE (Nonreactive); ~Hepatitis C Antibody Nonreactive (Nonreactive)
[2022-01-05 05:18] LABS: Syphilis Screen Reactive (Nonreactive)
[2022-01-08 09:48] LABS: RPR Quantitative Non-Reactive (Nonreactive)
[2022-01-08 09:49] LABS: T.Pallidum Particle Agg Test Reactive (Nonreactive)
== END 2022-01-03 08:54 | disposition home or self-care (01) ==
LOC: HO.HMGCLDS 08:53
PROVIDERS: PCP Family Medicine; Visit Provider Nurse Practitioner Family
DX: Z11.2 Encounter for screening for other bacterial diseases (principal); Z11.4 Encounter for screening for human immunodeficiency virus [HIV]
CPT/HCPCS: 36415; 86592; 86704; 86706; 86780; 86803; 87340; 87389

== ENCOUNTER 2022-04-10 10:03 | Outpatient (REF) | payer MEDICARE, MEDICAID, SELFPAY ==
[2022-04-10 18:23] LABS: CT PCR NOT DETECTED (Not Detect.); NG PCR DETECTED (Not Detect.)
== END 2022-04-10 10:04 | disposition home or self-care (01) ==
LOC: HO.LAB 10:03
PROVIDERS: Visit Provider Internal Medicine
DX: Z11.3 Encounter for screening for infections with a predominantly sexual mode of transmission (principal)
CPT/HCPCS: 87491; 87591

== ENCOUNTER → 2022-04-13 09:56 | Outpatient (BNVA) | payer MEDICARE, MEDICAID, SELFPAY | PROVIDERS: PCP Family Medicine; Visit Provider Internal Medicine | DX: A53.9 Syphilis, unspecified (principal) | CPT/HCPCS: 99202 ==

== ENCOUNTER 2022-10-02 16:05 | Outpatient (REF) | payer MEDICARE, MEDICAID, SELFPAY ==
[2022-10-02 18:51] LABS: Appearance Urine Clear; Color Urine Yellow; Glucose Urine UA Negative (Negative); Leukocyte Esterase Urine Trace (Negative); Nitrite Urine Negative (Negative); UMIC TRIGGER UACC YES; Urine Blood Negative (Negative); Urine Ketones Negative (Negative); Urine Protein Negative (Neg-Trace)
[2022-10-02 18:57] LABS: Bacteria Urine None Seen (None Seen); Hyaline Casts Urine 0-2 /LPF (0-2); RBC Urine 0-2 /HPF (0-2); Squamous Epithelial Cell Urine 0-2 /HPF (0-2); WBC Urine 0-5 /HPF (0-5)
== END 2022-10-02 16:06 | disposition home or self-care (01) ==
LOC: HO.LAB 16:05
PROVIDERS: Visit Provider Nurse Practitioner Family
DX: Z11.3 Encounter for screening for infections with a predominantly sexual mode of transmission (principal)
CPT/HCPCS: 81001

== ENCOUNTER 2022-10-03 10:07 | Outpatient (REF) | payer MEDICARE, MEDICAID, SELFPAY ==
[2022-10-03 13:34] LABS: Appearance Urine Turbid; Color Urine Yellow; Glucose Urine UA Negative (Negative); Leukocyte Esterase Urine Trace (Negative); Nitrite Urine Negative (Negative); PH 5.5 (5.0-9.0); Specific Gravity - Urine 1.025 (1.005-1.025); UMIC TRIGGER UACC YES; Urine Blood Small (1+) (Negative); Urine Ketones Negative (Negative); Urine Protein Trace mg/dL (Neg-Trace)
[2022-10-03 13:47] LABS: Bacteria Urine None Seen (None Seen); Hyaline Casts Urine 0-2 /LPF (0-2); RBC Urine 0-2 /HPF (0-2); Squamous Epithelial Cell Urine 0-2 /HPF (0-2); WBC Urine 0-5 /HPF (0-5)
[2022-10-05 08:26] LABS: Syphilis Screen Reactive (Nonreactive)
== END 2022-10-03 10:08 | disposition home or self-care (01) ==
LOC: HO.HMGCLDS 10:07
PROVIDERS: PCP Family Medicine; Visit Provider Nurse Practitioner Family
DX: Z20.2 Contact with and (suspected) exposure to infections with a predominantly sexual mode of transmission (principal)
CPT/HCPCS: 36415; 81001; 86780

== ENCOUNTER 2022-12-18 08:10 | Outpatient (AMB) | payer MEDICARE, MEDICAID, SELFPAY ==
[2022-12-18 09:01] VITALS: BP 118/86; PULSE 84; TEMP 36.8; O2SAT 94
--- NOTE | 2022-12-18 09:01 | MHC.OFFWIV ---
Intake Vital Signs 12/18/22 09:01 Height 6 ft BP 118/86 Blood Pressure Location Lt brachial Position Sitting Pulse 84 Pulse Source Pulse Oximeter Temp 98.2 F Temp Source Oral Pulse Oximetry (%) 94 Oxygen Delivery Method Room Air Intake Visit Reasons: EP Wax removal Intake Note: Pt is here today for ear wax removal both ears Patient Tobacco Use Status: Current everyday Tobacco user Allergies penicillin V Allergy (Unknown, Verified 12/18/22 09:01) Nausea and Vomiting Penicillins [PENICILLINS] Allergy (Unknown, Verified 12/18/22 09:01) NAUSEA/VOMITING MUSCLE RELAXER Allergy (Unknown, Uncoded 04/10/22 08:53) FOAMING AT THE MOUTH - CANNOT REMEMBER NAME OF DRUG Do you need a note to return to daycare/school/sports/work: No HPI HPI Comments History of Present Illness Details 52-year-old male presents for bilateral ear wax impaction. He has no other medical complaints at this time. [facility] Medical History Anxiety Depression ETOH abuse GERD (gastroesophageal reflux disease) Social History Patient Tobacco Use Status: Current everyday Tobacco user Review of Systems Const Details: Constitutional: No Fever, No Chills ENT/Mouth: Positive bilateral ear wax buildup, No Hoarseness, No sore throat Skin: No Skin lacerations, No rash Neuro: No Dizziness, No Headache All systems reviewed & are unremarkable except as noted in HPI and below Physical Exam Vital Signs: Last Vital Signs Temp 98.2 F 12/18/22 09:01 Pulse 84 12/18/22 09:01 BP 118/86 12/18/22 09:01 Pulse Ox 94 12/18/22 09:01 Oxygen Delivery Method Room Air 12/18/22 09:01 Appearance: Alert. Oriented X3. No acute distress. Eyes: Pupils equal, round and reactive to light. ENT: Bilateral cerumen impactions. Neck: Normal inspection. Neck supple. CVS: Normal heart rate and rhythm. Pulses normal. Respiratory: No respiratory distress. Breath sounds normal. Extremities: Gait balance and coordinated. Neuro: No motor deficit. No sensory deficit. Cranial nerves 2-12 intact Assessment & Plan Assessment & Plan (1) Bilateral impacted cerumen: Code(s): H61.23 - Impacted cerumen, bilateral Plan 52-year-old male presents for bilateral cerumen impaction. He does have recurrent cerumen impactions and has presented to this facility in the past for disimpaction. Patient has no other medical concerns at this time. Physical exam indicates bilateral cerumen impaction. MA will irrigate both ears. 09:25 bilateral cerumen impaction cleared by MA with irrigation. Tympanic membranes intact bilaterally, canals intact. No further action required. Will recommend Debrox drops. Patient verbalized understanding of discharge instructions. Verbalized understandings of signs and symptoms indicating need for emergent intervention. Patient Instructions: You were evaluated for bilateral cerumen impaction. We were able to remove the wax successfully. Consider using Debrox drops [id number] as directed on the package. Thank you for choosing this urgent care for evaluation. Please follow-up with primary care physician as needed. Return to the emergency department for any new, concerning, or worsening symptoms. Coding Level of Care Code Est Pt Level 3 (52760) Diagnoses Bilateral impacted cerumen H61.23
== END 2022-12-18 09:43 | disposition home or self-care (01) ==
PROVIDERS: PCP Family Medicine; Visit Provider Nurse Practitioner Family
DX: H61.23 Impacted cerumen, bilateral (principal)
CPT/HCPCS: 99213

== ENCOUNTER 2022-12-31 09:00 | Outpatient (AMB) | payer MEDICARE, MEDICAID, SELFPAY ==
--- NOTE | 2022-12-31 09:00 | AM.OFFWIN_ITS ---
Intake Vital Signs 12/31/22 09:01 Weight 63.049 kg BP 100/70 Blood Pressure Location Rt brachial Position Sitting Pulse 86 Pulse Source Pulse Oximeter Temp 98.2 F Temp Source Temporal Artery Scan Pulse Oximetry (%) 97 Oxygen Delivery Method Room Air Intake Visit Reasons: EP Swollen Wrist Intake Note: Patient here for bilat hand swelling, pt states they are tingling and unable to bend fingers which comes and goes. Patient Tobacco Use Status: Current everyday Tobacco user Allergies penicillin V Allergy (Unknown, Verified 12/31/22 09:02) Nausea and Vomiting Penicillins [PENICILLINS] Allergy (Unknown, Verified 12/31/22 09:02) NAUSEA/VOMITING MUSCLE RELAXER Allergy (Unknown, Uncoded 12/31/22 09:02) FOAMING AT THE MOUTH - CANNOT REMEMBER NAME OF DRUG Do you need a note to return to daycare/school/sports/work: No HPI HPI Comments History of Present Illness Details 922 52 year old male presents w/ finger pain to all fingers b/l for the past few years worsening over the past few days. Patient states that this has been going on for a while he gets a ?special treatment ?from [facility] with something like a 10s unit he tells me, he used to be on long-term opiates however ice he is not using them anymore. He has not seen an orthopedic doctor in a while. Reports intermittent numbness and tingling, pain fluctuates in intensity, no overlying skin changes, fevers, chills, chest pain, shortness of breath, nausea, vomiting, abdominal pain. Physical exam all fingers bilaterally appear contracted normal sensation and capillary refill to all fingers, able to move them however they are stiff and range of motion appears painful. Normal sensation distally. No wrist drop. Full range of motion to wrist. No overlying skin changes to wrist, fingers. This is likely rheumatoid arthritis versus osteoarthritis. Other differentials include gout pseudogout. No signs of septic joint tenosynovitis, neurovascular compromise or threat to Brush. Plan high-dose steroids, naproxen and PCP follow-up. Educated patient on diagnosis and treatment plan, answered all question, patient verbalizes understanding. At this time patient will be discharged home, advised to return with new or worsening symptoms. Educated on worrisome signs and symptoms and when to return. At this time I feel comfortable discharge home. [facility] Medical History Anxiety Depression ETOH abuse GERD (gastroesophageal reflux disease) Social History Patient Tobacco Use Status: Current everyday Tobacco user Review of Systems Const Details: Constitutional : No Weight loss, No Fever, No Chills, No Fatigue, No Malaise ENT/Mouth : No sore throat, No Rhinorrhea Eyes: No Eye Pain, No Swelling, No Redness Cardiovascular : No Chest Pain, No SOB, No Dyspnea on Exertion, No Orthopnea, No Edema, No Palpitations Respiratory : No Cough, No Sputum, No Wheezing Gastrointestinal : No Nausea, No Vomiting, No Diarrhea, No Constipation, No abdominal Pain, No Hematochezia, No Melena Genitourinary : No Dysuria, No Urinary Frequency, No Hematuria, Musculoskeletal : + joint pain, No Myalgias, + Joint Swelling Skin : No Skin Lesions, No rash Neuro : No Weakness, No Numbness, No Dizziness, No Headache Psych : No Anxiety/Panic, No Depression All other systems reviewed and are negative All systems reviewed & are unremarkable except as noted in HPI and below Physical Exam Vital Signs: Last Vital Signs Temp 98.2 F 12/31/22 09:01 Pulse 86 12/31/22 09:01 BP 100/70 12/31/22 09:01 Pulse Ox 97 12/31/22 09:01 Oxygen Delivery Method Room Air 12/31/22 09:01 vss Appearance: Alert.? Oriented X3.? No acute distress.? Head: Normocephalic, atraumatic, no step-offs or deformities Eyes: Pupils equal, round and reactive to light.? CVS: Normal heart rate and rhythm.? Pulses normal.? Respiratory: No respiratory distress.? Breath sounds normal.? Abdomen: Soft and nontender.? Skin: Skin warm and dry.? Normal skin color.? Normal skin turgor.? Extremities: No lower extremity edema.? No calf ttp. 5/5 strength to bilateral upper and lower extremities all fingers bilaterally appear contracted normal sensation and capillary refill to all fingers, able to move them however they are stiff and range of motion appears painful. Normal sensation distally. No wrist drop. Full range of motion to wrist. No overlying skin changes to wrist, fingers. Neuro: Oriented X 3.? No motor deficit.? No sensory deficit. CN 2-12 intact Assessment & Plan Assessment & Plan (1) Arthritis: Code(s): M19.90 - Unspecified osteoarthritis, unspecified site Plan Take your medications as prescribed. If you were prescribed antibiotics today, it is important that you take your medication to their entirety, do not skip any doses, do not finish them early. Follow-up with your primary care provider this week. Return to the emergency department with new or worsening symptoms. Such as fevers, chills, chest pain, shortness of breath, nausea, vomiting, dizziness, headache, vision changes, lethargy In case of emergency call 911 Medications: New prednisone 60 mg (3 x 20 mg) PO DAILY 15 tabs 0RF 5 days naproxen 500 mg PO BID PRN 14 tabs 0RF pain Coding Level of Care Code Est Pt Level 3 (41930) Diagnoses Arthritis M19.90
[2022-12-31 09:01] VITALS: BP 100/70; PULSE 86; TEMP 36.8; O2SAT 97
== END 2022-12-31 09:25 | disposition home or self-care (01) ==
PROVIDERS: PCP Family Medicine; Visit Provider Physician Assistant
DX: M19.90 Unspecified osteoarthritis, unspecified site (principal)
CPT/HCPCS: 99213

== ENCOUNTER 2023-01-22 14:55 | Outpatient (AMB) | payer MEDICARE, MEDICAID, SELFPAY ==
[2023-01-22 14:58] VITALS: BP 120/80; PULSE 97; O2SAT 97; BMI 18.7
--- NOTE | 2023-01-22 14:58 | AM.OFFWIN_ITS ---
Intake Vital Signs 01/22/23 14:58 Height 6 ft Weight 138 lb BMI 18.7 BP 120/80 Blood Pressure Location Lt brachial Position Sitting Pulse 97 Pulse Source Pulse Oximeter Pulse Oximetry (%) 97 Oxygen Delivery Method Room Air Intake Visit Reasons: EST/STD Testing Patient Tobacco Use Status: Current everyday Tobacco user Allergies penicillin V Allergy (Unknown, Verified 12/31/22 09:02) Nausea and Vomiting Penicillins [PENICILLINS] Allergy (Unknown, Verified 12/31/22 09:02) NAUSEA/VOMITING MUSCLE RELAXER Allergy (Unknown, Uncoded 12/31/22 09:02) FOAMING AT THE MOUTH - CANNOT REMEMBER NAME OF DRUG HPI HPI Comments History of Present Illness Details This is a 52-year-old male who presents to the office today for for STD testing. He states his had a infection he is concerned that he may have an STD. Patient denies any symptoms including penile discharge, dysuria, hematuria, urinary frequency/urgency, fever/chills, chest pain, shortness of breath, abdominal pain, or nausea/vomiting/diarrhea.l [facility] Medical History Anxiety Depression ETOH abuse GERD (gastroesophageal reflux disease) Social History Patient Tobacco Use Status: Current everyday Tobacco user Review of Systems Const All systems reviewed & are unremarkable except as noted in HPI and below Reports no additional complaints Eyes Reports no additional complaints ENT Reports no additional complaints Card Reports no additional complaints Resp Reports no additional complaints GI Reports no additional complaints Reports no additional complaints Musc Reports no additional complaints Skin/Breast Reports system reviewed and no additional complaints, except as documented Neuro Reports no additional complaints Psych Reports no additional complaints Endo Reports no additional complaints Joshua/Lymph Reports no additional complaints Aller/Immun Reports no additional complaints Physical Exam Vital Signs: Last Vital Signs Pulse 97 01/22/23 14:58 BP 120/80 01/22/23 14:58 Pulse Ox 97 01/22/23 14:58 Oxygen Delivery Method Room Air 01/22/23 14:58 BMI result Body Mass Index 18.7 Const General: cooperative, healthy appearing, no acute distress and well developed Orientation/consciousness: patient oriented x3 HEENT Head: Yes normal to inspection Ears: hearing grossly normal bilaterally General nose exam: Normal external nose present Face and sinus: Yes normal facial exam Mouth: Normal oral and palatal mucosa present Eyes General: appearance normal, both eyes and all related structures Pupils: Equal, round and reactive pupils present EOM: EOMs intact bilaterally Resp Effort & Inspection: normal respiratory effort and no respiratory distress Auscultation: clear to auscultation bilaterally Cardio Rate: regular rate Rhythm: regular rhythm Heart sounds: no gallops, no murmurs and no rubs Peripheral pulses: Peripheral pulses 2+ throughout GI Inspection: No distended Palpation (GI): Soft to palpation and nontender Auscultation: normal bowel sounds Skin General skin exam: no rashes or lesions noted Neuro General: patient oriented x3 Cranial nerves: Yes CN's II-XII intact bilaterally and Yes Equal, round and reactive pupils present Gait exam (Neuro): Normal gait present Motor exam (neuro): 5/5 motor strength present throughout Extrem General: Yes normal to inspection, Yes full ROM and Yes no clubbing, cyanosis or edema Psych Speech and movement: Pressured speech present Affect: Anxious affect present Thought process: Tangential thought process present Assessment & Plan Assessment & Plan (1) Screening for STD (sexually transmitted disease): Code(s): Z11.3 - Encounter for screening for infections with a predominantly sexual mode of transmission Plan: This is a 52-year-old male presenting to the office requesting STD testing. He states his had a yeast infection is concerned that he may have an STD. Patient is completely asymptomatic without any active complaints. Urine was sent for gonorrhea/chlamydia. HIV was ordered but lab is closec. Patient will return tomorrow morning to obtain HIV testing. Patient will be called with the results. Orders: Orders CT NG by PCR Today Z20.2 - Contact with and (suspected) exposure to infections with a predominantly sexual mode of transmission HIV Ab/Ag Today Z11.3 - Encounter for screening for infections with a predominantly sexual mode of transmission Coding Level of Care Code Est Pt Level 3 (15654) Diagnoses Screening for STD (sexually transmitted disease) Z11.3
== END 2023-01-22 15:56 | disposition home or self-care (01) ==
PROVIDERS: PCP Family Medicine; Visit Provider Physician Assistant Medical
DX: Z11.3 Encounter for screening for infections with a predominantly sexual mode of transmission (principal)
CPT/HCPCS: 99213

== ENCOUNTER 2023-01-23 10:26 | Outpatient (REF) | payer MEDICARE, MEDICAID, SELFPAY ==
[2023-01-23 15:34] LABS: CT PCR NOT DETECTED (Not Detect.); NG PCR NOT DETECTED (Not Detect.)
== END 2023-01-23 10:27 | disposition home or self-care (01) ==
LOC: HO.LAB 10:26
PROVIDERS: Visit Provider Physician Assistant Medical
DX: Z20.2 Contact with and (suspected) exposure to infections with a predominantly sexual mode of transmission (principal)
CPT/HCPCS: 0353U

== ENCOUNTER 2023-01-25 15:02 | Outpatient (REF) | payer MEDICARE, MEDICAID, SELFPAY ==
[2023-01-26 05:27] LABS: HIV AB/AG Nonreactive (Nonreactive); HIV Num 1 0.06 S/CO (0.00-0.99)
== END 2023-01-25 15:03 | disposition home or self-care (01) ==
LOC: HO.HMGCLDS 15:02
PROVIDERS: PCP Family Medicine; Visit Provider Physician Assistant Medical
DX: Z11.3 Encounter for screening for infections with a predominantly sexual mode of transmission (principal); Z11.4 Encounter for screening for human immunodeficiency virus [HIV]
CPT/HCPCS: 36415; 87389

== ENCOUNTER 2023-05-07 08:08 | Outpatient (AMB) | payer MEDICARE, MEDICAID, SELFPAY ==
[2023-05-07 08:24] VITALS: BP 128/72; PULSE 92; TEMP 36.6; O2SAT 98; BMI 20.7
--- NOTE | 2023-05-07 08:24 | MHC.OFFWIV ---
Intake Vital Signs 05/07/23 08:24 Height 6 ft Weight 152 lb 8 oz BMI 20.7 BP 128/72 Blood Pressure Location Lt brachial Position Sitting Pulse 92 Pulse Source Pulse Oximeter Temp 97.8 F Temp Source Oral Pulse Oximetry (%) 98 Oxygen Delivery Method Room Air Intake Visit Reasons: EST/lumps under arms ([phone]) Intake Note: pt is here today for lumps under arm, started Patient Tobacco Use Status: Current everyday Tobacco user Allergies penicillin V Allergy (Unknown, Verified 05/07/23 08:25) Nausea and Vomiting Penicillins [PENICILLINS] Allergy (Unknown, Verified 05/07/23 08:25) NAUSEA/VOMITING MUSCLE RELAXER Allergy (Unknown, Uncoded 12/31/22 09:02) FOAMING AT THE MOUTH - CANNOT REMEMBER NAME OF DRUG Do you need a note to return to daycare/school/sports/work: No HPI HPI Comments History of Present Illness Details He presents to office with bumps to armpits He said it has occured again; has had in past Never needed it drained before Never required antibiotics Unusure if due to deodorant but states he washed and used deodorant which helped No other complaints Nod rainage from area He has tried to pop without resolution in past PFSH Medical History Anxiety Depression ETOH abuse GERD (gastroesophageal reflux disease) Social History Patient Tobacco Use Status: Current everyday Tobacco user Review of Systems Const Denies body aches, Denies chills, Denies fatigue and Denies fever(s) Card Denies chest pain Resp Denies cough Musc Denies back pain and Denies myalgias Skin/Breast Reports lesions Endo Denies fatigue Physical Exam Vital Signs: Last Vital Signs Temp 97.8 F 05/07/23 08:24 Pulse 92 05/07/23 08:24 BP 128/72 05/07/23 08:24 Pulse Ox 98 05/07/23 08:24 Oxygen Delivery Method Room Air 05/07/23 08:24 BMI result Body Mass Index 20.7 General: Non-toxic, NAD. Speaking full sentences. Skin: Warm dry throughout. L axilla- 2 small approx 0.5cm round raised non-tender circular skin color lesions near hair follicles in L axilla R axila- 1 small approx 0.5cm round raised non-tender circular skin lesions to R axilla Eye: EOMI Respiratory: No tachypnea Cardiac: RRR. MSK: Full ROM extremities. Neurology: A/O. No aphasia or facial droop. Gait without abnormality Psych: Good mood and affect Assessment & Plan Assessment & Plan (1) Skin lesion: Code(s): L98.9 - Disorder of the skin and subcutaneous tissue, unspecified Plan: Patient seen and evaluated. No infection or abscess It appears consistent with blocked hair follicle He will use mupirocin and warm compress Patient gave verbal understanding and had no additional questions or concerns at time of discharge All questions answered Medications: New mupirocin 2% 1 appl topical BID PRN 22 grams 0RF axilla bumps L98.9 - Disorder of the skin and subcutaneous tissue, unspecified Coding Level of Care Code Est Pt Level 3 (72029) Diagnoses Skin lesion L98.9
== END 2023-05-07 08:59 | disposition home or self-care (01) ==
PROVIDERS: PCP Family Medicine; Visit Provider Physician Assistant
DX: L98.9 Disorder of the skin and subcutaneous tissue, unspecified (principal)
CPT/HCPCS: 99213

== ENCOUNTER 2023-06-04 23:17 | Emergency (ER) | payer MEDICARE, MEDICAID, SELFPAY ==
--- NOTE | ~2023-06-04 | XR_ITS ---
EXAMINATION: XR HAND, LEFT CLINICAL INFORMATION: Index finger injury, pain COMPARISON: None available. TECHNIQUE: PA, lateral, and oblique views of the left hand. FINDINGS: Osseous alignment is anatomic. No acute fracture is seen. No significant focal soft tissue abnormality identified. XR/XR hand LT min 3V IMPRESSION: No acute findings.
[2023-06-04 23:41] VITALS: BP 118/74; PULSE 87; RESP 18; TEMP 36.7; O2SAT 95; BMI 22.4
--- NOTE | 2023-06-04 23:56 | ED_ITS ---
HPI - General Adult General Chief complaint: General Medical Stated complaint: Finger inj Time Seen by Provider: 06/04/23 23:56 Source: patient Mode of arrival: ambulatory Limitations: no limitations History of Present Illness HPI narrative: Patient is a 53 year old assigned male at with a history of gout, depression, and anxiety presenting to the emergency department today with left index finger pain. Patient states that a week ago he was working on his car when he hit his left index finger on a sharp piece of metal. Patient denies any dizziness, lightheadedness, abdominal pain, nausea, vomiting, fever, chills, blurry vision, double vision, loss of vision, chest pain, difficulty breathing, shortness of breath, back pain, night sweats, pain with urination, increased urinary frequency, increased urinary urgency, blood in his urine or stool, syncope or a near syncopal episode, bowel incontinence, bladder incontinence, bowel retention, bladder retention, or any other complaints at this time. Onset (ago): week(s) (1) Location: left (index finger) Radiation: non-radiation Severity: mild Severity scale (1-10): 3 Relieving factors: none Exacerbating factors: none Associated symptoms: denies other symptoms Treatments prior to arrival: none Related Data Home Medications Medication Instructions Recorded Confirmed albuterol sulfate 2.5 mg/3 mL mg inhalation Q6H PRN 09/18/20 01/02/22 (0.083 %) solution for nebulization albuterol sulfate 90 mcg/actuation 0 mcg inhalation 09/18/20 01/02/22 aerosol inhaler albuterol sulfate 5 mg/mL(0.5 %) 5 mg inhalation Q6H PRN 10/21/20 01/02/22 solution for nebulization Previous Rx's Medication Instructions Recorded Flovent HFA 110 mcg/actuation 1 puff PO BID #12 grams 03/21/21 aerosol inhaler (fluticasone propionate) omeprazole 20 mg capsule,delayed 20 mg PO DAILY 30 days #30 caps 05/05/21 release naproxen 500 mg tablet 500 mg PO BID PRN pain #14 tabs 12/31/22 mupirocin 2 % topical ointment 1 appl topical BID PRN axilla 05/07/23 bumps #22 grams doxycycline hyclate 100 mg tablet 100 mg PO BID 7 days #14 tabs 06/05/23 Allergies Allergy/AdvReac Type Severity Reaction Status Date / Time penicillin V Allergy Unknown Nausea and Verified 06/04/23 23:40 Vomiting Penicillins [PENICILLINS] Allergy Unknown NAUSEA/VOMI Verified 06/04/23 23:40 TING MUSCLE RELAXER Allergy Unknown FOAMING AT Uncoded 12/31/22 09:02 THE MOUTH - CANNOT REMEMBER NAME OF DRUG Review of Systems Constitutional: Constitutional: Reports no additional constitutional complaints, Denies chills, Denies fever(s) and Denies night sweats Eyes: Eyes: Reports no additional eye complaints, Denies blurry vision, Denies change in vision, Denies diplopia, Denies eye discharge, Denies loss of vision and Denies eye pain ENT: Denies dizziness Cardiovascular: Cardiovascular: Reports no additional cardiovascular complaints, Denies chest pain, Denies lightheadedness, Denies Loss of Consciousness and Denies dyspnea Respiratory: Respiratory: Reports no additional respiratory complaints and Denies dyspnea Gastrointestinal: Gastrointestinal: Reports no additional gastrointestinal complaints, Denies abdominal pain, Denies melena, Denies hematochezia, Denies change in bowel habits and Denies change in stool character Genitourinary: Genitourinary: Reports no additional male genitourinary complaints, Denies hematuria, Denies oliguria, Denies difficulty urinating, Denies dysuria, Denies urinary frequency, Denies urinary hesitancy, Denies urinary incontinence and Denies urinary urgency Musculoskeletal: Musculoskeletal: Reports no additional musculoskeletal complaints, Denies numbness and Denies tingling Comments: left index finger pain and swelling Neurologic: Denies dizziness, Denies loss of vision, Denies numbness and Denies tingling Psychiatric: Psychiatric: Reports no additional psychiatric complaints Endocrine: Endocrine: Reports no additional endocrine complaints Hematologic/Lymphatic: Hematologic/Lymphatic: Reports no additional hematologic/lymphatic complaints Allergic/Immunologic: Allergic/Immunologic: Reports no additional allergic/immunologic complaints PMFSH Past Medical History Attestation statement: The following information was validated with the patient. Source: old records reviewed and nursing notes reviewed Medical History Skin lesion Bilateral impacted cerumen Upper respiratory tract infection Acquired syphilis Screening for STD (sexually transmitted disease) Polyuria Penile discharge Lichenification Laboratory examination ordered as part of a routine general medical examination Tinea barbae Folliculitis GERD (gastroesophageal reflux disease) ETOH abuse Depression Anxiety Social History Social History Patient Tobacco Use Status: Current everyday Tobacco user Advance Directives: No Advance Directives Information Provided: Yes Physical Exam ED Vital Signs: Vital Signs - 24 hr 06/04/23 23:41 06/05/23 00:07 Temperature 98.0 F 98.3 F Pulse Rate 87 80 Respiratory Rate 18 17 Blood Pressure 118/74 119/58 L Pulse Oximetry 95 97 Oxygen Delivery Method Room Air Room Air BMI result Body Mass Index 22.4 Const General: cooperative, no acute distress, alert and awake Nutritional Appearance: well nourished Orientation/consciousness: patient oriented x3 Limitations: no limitations HENMT Head: Yes normal to inspection and Yes atraumatic Ears: hearing grossly normal bilaterally and external ears normal General nose exam: Normal external nose present, no nasal discharge noted and no epistaxis Face and sinus: Yes normal facial exam, No abrasion and No laceration Mouth: Normal oral and palatal mucosa present, no drooling and no muffled voice Eyes General: appearance normal, both eyes and all related structures Periorbital: periorbital findings normal Eyelids: Yes eyelids normal Conjunctivae: conjunctivae normal Pupils: Equal, round and reactive pupils present EOM: EOMs intact bilaterally Neck Neck: Yes normal visual inspection, Yes full ROM and Yes no lymphadenopathy Chest Chest palpation & inspection: normal inspection of the chest Resp Effort & Inspection: normal respiratory effort and able to speak in complete sentences GI Inspection: Yes normal to inspection Neuro General: patient oriented x3 and moves all extremities Cranial nerves: Yes Equal, round and reactive pupils present Cognition (Neuro): normal cognition Motor exam (neuro): 5/5 motor strength present throughout Sensory Exam: Normal double simultaneous stimulation for sensation Coordination: [id number] test normal Extrem General: Yes normal to inspection, Yes full ROM and Yes capillary refill normal Psych Appearance: grossly normal Mental Status: mental status grossly normal Affect: normal affect Attitude: cooperative Thought process: Normal thought process present Thought content: Normal thought content present Insight: Good insight present (Psych) Medications Administered Discontinued Medications Generic Name Dose Route Start Last Admin Trade Name Freq PRN Reason Stop Dose Admin Diphtheria/Tetanus/Acell Pertussis 0.5 ml 06/05/23 00:50 06/05/23 01:01 Alyce Shrestha(Priscila),Tet Adult 0.5 Ml Syringe IM 06/05/23 00:51 0.5 ml .ONCE ONE Administration Doxycycline Monohydrate 100 mg 06/05/23 00:50 06/05/23 01:01 Doxycycline Monohydrate 100 Mg Capsule PO 06/05/23 00:51 100 mg ONCE ONE Administration Medical Decision Making Medical Decision Making MDM Narrative: Patient is a 53 year old assigned male at with a history of anxiety, depression, and gout presenting to the emergency department today with left index finger pain. Patient's physical exam was unremarkable. Patient's left hand x-ray showed no acute process. Given patient's current clinical presentation and mechanism of injury, will treat for possible cellulitis. I explained my physical exam findings as well as all test results to the patient. I answered all questions asked by the patient. I stressed the importance of the patient taking his medication as prescribed. I stressed the importance of the patient following up with his primary care provider. I stressed the importance of the patient returning to the emergency department immediately if his symptoms were to worsen or if he were to develop any dizziness, shortness of breath, difficulty breathing, chest pain, blurry vision, loss of vision, nausea, vomiting, abdominal pain, fever, chills, back pain, or any other complaints. Patient verbalized agreement and understanding with this treatment plan and discharge. Differential Diagnosis Differential Diagnoses: The differential diagnosis associated with the presentation includes Cellulitis Finger fracture Finger pain Retained foreign body Admission/Observation Consideration of admission/observation: Escalation of care including admission/observation considered Patient would have been admitted to the hospital had his work up had any findings where hospital admission was appropriate and his clinical presentation warranted hospital admission. Independent Interpretation I performed an independent interpretation of an: Plain X-Ray Interpretation: My interpretation is in agreement with the radiologist's impression of this imaging study. EXAMINATION: XR HAND, LEFT CLINICAL INFORMATION: Index finger injury, pain COMPARISON: None available. TECHNIQUE: PA, lateral, and oblique views of the left hand. FINDINGS: Osseous alignment is anatomic. No acute fracture is seen. No significant focal soft tissue abnormality identified. XR/XR hand LT min 3V IMPRESSION: No acute findings. Dictated By: Dae Helm MD Signed By: Electronically signed by Dae Helm MD 06/05/23 0048 Radiology Impression Discussion of test interpretation with radiology: I have reviewed the radiologist's reading. Prescription Management I considered prescription management with: Antibiotic (patient prescribed an antibiotic for cellulitis) Discharge Plan Discharge Clinical Impression: Cellulitis Patient Disposition: Home, Self-Care Instructions: Cellulitis (DC) Additional Instructions: Follow up with your primary care provider. Return to the emergency department immediately if your symptoms worsen or if you develop any dizziness, shortness of breath, difficulty breathing, chest pain, blurry vision, loss of vision, nausea, vomiting, abdominal pain, fever, chills, back pain, or any other complaints. Prescriptions: New doxycycline hyclate 100 mg tablet 100 mg PO BID 7 Days Qty: 14 0RF No Action Flovent HFA 110 mcg/actuation HFA aerosol inhaler 1 puff PO BID Qty: 12 3RF omeprazole 20 mg capsule,delayed release(DR/EC) 20 mg PO DAILY 30 Days Qty: 30 0RF albuterol sulfate 90 mcg/actuation HFA aerosol inhaler 0 mcg inhalation albuterol sulfate 2.5 mg /3 mL (0.083 %) solution for nebulization inhalation Q6H PRN albuterol sulfate 5 mg/mL solution for nebulization 5 mg inhalation Q6H PRN naproxen 500 mg tablet 500 mg PO BID PRN (Reason: pain) Qty: 14 0RF mupirocin 2 % ointment 1 appl topical BID PRN (Reason: axilla bumps) Qty: 22 0RF Referrals: Louis Vazquez MD [Primary Care Provider] - Stand Alone Forms: Work/School Release Interventions: ED Discharge Assessment Last Done: 06/05/23 01:04 Discharge Date/Time: 06/05/23 01:04 Print Language: Kinyarwanda
[2023-06-05 00:07] VITALS: BP 119/58; PULSE 80; RESP 17; TEMP 36.8; O2SAT 97
[2023-06-05] MEDS: Doxycycline Monohydrate 100 MG CAPSULE PO (01:01)
[2023-06-05] MEDS: Diphth,Pertus(ACell),Tet Adult 0.5 ML SYRINGE IM (01:01)
== END 2023-06-05 01:04 | disposition home or self-care (01) ==
PROVIDERS: Emergency Provider Emergency Medicine; PCP Family Medicine
DX: L03.012 Cellulitis of left finger (principal); S69.92XA Unspecified injury of left wrist, hand and finger(s), initial encounter; W22.8XXA Striking against or struck by other objects, initial encounter; M79.645 Pain in left finger(s); Z23 Encounter for immunization; Y93.9 Activity, unspecified; Y92.9 Unspecified place or not applicable; Y99.9 Unspecified external cause status
CPT/HCPCS: 73130; 90471; 90715; 99284

== ENCOUNTER 2023-06-30 08:05 | Outpatient (AMB) | payer MEDICARE, MEDICAID, SELFPAY ==
--- NOTE | 2023-06-30 08:06 | MHC.PC.OV ---
Vital Signs 06/30/23 08:24 Height 6 ft Weight 150 lb 4 oz BMI 20.4 BP 130/77 Blood Pressure Location Lt brachial Position Sitting Respiration 13 Pulse 82 Pulse Source Pulse Oximeter Pulse Oximetry (%) 98 Oxygen Delivery Method Room Air Intake Visit Reasons: Alcoholism Intake Note: Patient is here to request assistance with curbing alcohol addiction. Patient reports he had 1 nip this morning for alcoholic beverages. Patient reports he has arthritis in both hands and had a great deal of pain. Patient is taking naproxen for pain. Patient needs refills on all medications. Typer Required: No Accompanied by: Spouse Allergies penicillin V Allergy (Unknown, Verified 06/30/23 08:36) Nausea and Vomiting Penicillins [PENICILLINS] Allergy (Unknown, Verified 06/30/23 08:36) NAUSEA/VOMITING MUSCLE RELAXER Allergy (Unknown, Uncoded 06/30/23 08:26) FOAMING AT THE MOUTH - CANNOT REMEMBER NAME OF DRUG Medication List - Last Reconciled 06/30/23 by Isabell Burton, GREEN TIRE INSPECTOR- albuterol sulfate 90 mcg/actuation 0 mcg inhalation albuterol sulfate 5 mg inhalation Q6H PRN Flovent HFA 110 mcg/actuation (fluticasone propionate) 1 puff PO BID NS mupirocin 2% 1 appl topical BID PRN naproxen 500 mg PO BID PRN omeprazole 20 mg PO DAILY 30 days Tobacco use date assessed: 06/30/23 Dental Screening Dental Screen Date: 06/30/23 Did you have a dental visit in the last 12 months?: Yes Did you have a dental problem in the last 6 months where you did not have access to dental care?: No Was dental information given to patient?: Yes HPI HPI Comments History of Present Illness Details History tough as patient all over the place w/ his thoughts and wishes Latonya ex- present helps with history Requesting help with alcohol abuse. Has been drinking 2-3 sleeves/day which is about about 20 nips and 12 pack of beer daily all my life hx of cocaine use; denies opiates past or present but then mentions overdosing on sleep medications and other street medications unclear if he has abused opiates in the past or not. He has been self weaning down. now 2 beers and 6 nips, last drink of 1 prior to arrival Has been to detox in the past he is afraid of withdrawl sz as his ex- experienced this and he was witnessed to it CIWA-r: 0 No nausea and vomiting, no tremor no tactile disturbances, auditory disturbances, sweats, visual disturbances, anxiety, headache, agitation mentation and sensorium within normal limits [facility] Medical History Skin lesion Bilateral impacted cerumen Upper respiratory tract infection Acquired syphilis Screening for STD (sexually transmitted disease) Polyuria Penile discharge Lichenification Laboratory examination ordered as part of a routine general medical examination Tinea barbae Folliculitis GERD (gastroesophageal reflux disease) ETOH abuse Depression Anxiety Social History Housing: Apartment Patient Tobacco Use Status: Former Tobacco user Cigarette Packs Per Day: 1 Years Smoked: 20 e-Cigarette/Vaping Use: Never Used service: No Current occupational status: unemployed Current occupational exposures/hazards: No Cognitive needs: No Hearing needs: No Vision needs: No Questionnaire AUDIT C Alcohol Use Questionnaire (AUDIT-C) 1. How often do you have a drink containing alcohol?: 4 or more times a week 2. How many drinks containing alcohol do you have on a typical day when you are drinking?: 10 or more 3. How often do you have six or more drinks on one occasion?: Daily or almost daily Total Score: 12 Score Reviewed/Action Taken: Yes Physical exam (Primary Care) Vital Signs: Last Vital Signs Pulse 82 06/30/23 08:24 Resp 13 06/30/23 08:24 BP 130/77 06/30/23 08:24 Pulse Ox 98 06/30/23 08:24 Oxygen Delivery Method Room Air 06/30/23 08:24 BMI result Body Mass Index 20.4 Tobacco/Smoking Status: Tobacco use Status Tobacco use date assessed 06/30/23 06/30/23 08:28 Patient Tobacco Use Status Former Tobacco user 06/30/23 08:28 e-Cigarette/Vaping Use Never Used 06/30/23 08:28 Const Other: Awake alert oriented accompanied by ex- Tangential speech Sclera is nonicteric Mucous membranes moist Lung sounds clear to auscultation bilat Regular rate and rhythm Assessment and Plan Assessment & Plan (1) ETOH abuse: Comment: Nurse navigator brought in for a brief intervention today during the office visit to help establish care with an outpatient detox clinic. Referral was made to the [facility]. I have prescribed some medications to help him with this process. He is aware that he should not at abruptly stop his alcohol use. He needs to follow closely with his outpatient team. I have ordered a CMP today to look at his liver as this will help with prescribing medications going forward. Educated about alcohol withdrawal seizures on reasons to seek emergency room level of care. I would like to see him back in 1 week to follow-up. Code(s): F10.10 - Alcohol abuse, uncomplicated (2) Substance use disorder: Code(s): F19.90 - Other psychoactive substance use, unspecified, uncomplicated Plan This note is constructed using voice recognition software. While every effort has been made to ensure accuracy in laborer prestressed concrete, still errors may have been included Sometimes, these errors may affect the content or meaning of the given sentence . Total time spent caring for the patient today was 60 minutes. This includes time spent before the visit reviewing the chart, time spent during the visit, and time spent after the visit on documentation Orders: Orders Comprehensive Met. Panel Today F10.10 - Alcohol abuse, uncomplicated Referrals Nurse Navigator Referral F10.10 - Alcohol abuse, uncomplicated, F19.90 - Other psychoactive substance use, unspecified, uncomplicated Addiction Medicine Referral F10.10 - Alcohol abuse, uncomplicated, F19.90 - Other psychoactive substance use, unspecified, uncomplicated Medications: New folic acid 1 mg PO DAILY 30 tabs 0RF thiamine HCl (vitamin B1) 250 mg PO DAILY 30 tabs 0RF clonidine HCl 0.2 mg PO BEDTIME 30 tabs 0RF Coding Level of Care Code Est Pt Level 5 (13592) Diagnoses ETOH abuse F10.10 Substance use disorder F19.90
[2023-06-30 08:24] VITALS: BP 130/77; PULSE 82; RESP 13; O2SAT 98; BMI 20.4
== END 2023-06-30 09:04 | disposition home or self-care (01) ==
PROVIDERS: PCP Family Medicine; Visit Provider Nurse Practitioner Family
DX: F10.10 Alcohol abuse, uncomplicated (principal); F19.90 Other psychoactive substance use, unspecified, uncomplicated
CPT/HCPCS: 99215

== ENCOUNTER 2023-06-30 08:47 | Outpatient (REF) | payer MEDICARE, MEDICAID, SELFPAY ==
[2023-06-30 12:11] LABS: Alanine Aminotransferase 28 U/L (0-40); Albumin Level 4.1 g/dL (3.5-5.0); Alkaline Phosphatase 123 U/L (39-117); Anion Gap 14 (12-20); Aspartate Amino Transferase 37 U/L (5-37); Bilirubin Total 0.4 mg/dL (0.0-1.0); Blood Urea Nitrogen 7 mg/dL (9-16); Calcium 9.5 mg/dL (8.4-10.2); Carbon Dioxide 28 mmol/L (22-29); Chloride 104 mmol/L (96-108); Estimated Glomerular Filt Rate > 60; Glucose Random 95 mg/dL (60-115); Potassium 4.6 mmol/L (3.3-5.1); Sodium 141 mmol/L (135-145); Total Protein 7.8 g/dL (6.5-8.0)
== END 2023-06-30 08:48 | disposition home or self-care (01) ==
LOC: HO.WFDLDS 08:47
PROVIDERS: Visit Provider Nurse Practitioner Family
DX: F10.10 Alcohol abuse, uncomplicated (principal)
CPT/HCPCS: 36415; 80053

== ENCOUNTER → 2023-07-15 13:23 | Outpatient (BNVA) | payer MEDICARE, MEDICAID, SELFPAY | PROVIDERS: PCP Family Medicine; Visit Provider Nurse Practitioner Family | DX: F10.20 Alcohol dependence, uncomplicated (principal) | CPT/HCPCS: 80305; 99202 ==

== ENCOUNTER 2023-07-15 13:27 | Outpatient (AMB) | payer MEDICARE, MEDICAID, SELFPAY ==
--- NOTE | 2023-07-15 13:26 | A.OFFVISCC_ITS ---
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 Vazquez last visit 06/2023 Stably housed, lives alone, collects disability Finds comfort in buddhism Patient circumstantial, poor historian Substance use: Previous ETOH use was 2 sleeves and 2 6-packs of Natural Ice- has weaned down to 3 nips and 2 beers with no withdrawal symptoms- last drink 1 nip today Previously used crack cocaine, stopped using in 2005. Reports he occasionally snorts cocaine Takes perc 30's daily for chronic pain, reports he buys them from people with known prescriptions Marijuana 1-2 joints daily Has been in detox multiple times- unsure when last detox admission was Uninterested in information or monomer recovery operator referral at this time Has previously had a provider through [employer], unsure of their name dx: depression and anxiety No hx of psychiatric hospitalizations Allergic to PCN and muscle relaxers PMH: Asthma- asking for refills on his inhalers Chronic pain to right hand- arthritis Incarcerated multiple times, last one in 2006 for [address] cases [facility] Medical History Skin lesion Bilateral impacted cerumen Upper respiratory tract infection Acquired syphilis Screening for STD (sexually transmitted disease) Polyuria Penile discharge Lichenification Laboratory examination ordered as part of a routine general medical examination Tinea barbae Folliculitis GERD (gastroesophageal reflux disease) ETOH abuse Depression Anxiety Social History Housing: Apartment Patient Tobacco Use Status: Former Tobacco user Cigarette Packs Per Day: 1 Years Smoked: 20 e-Cigarette/Vaping Use: Never Used service: No Current occupational status: unemployed Current occupational exposures/hazards: No Cognitive needs: No Hearing needs: No Vision needs: No Review of Systems Const Reports as per HPI Physical Exam Vital Signs: Last Vital Signs Pulse 92 07/15/23 13:29 BP 122/84 07/15/23 13:29 Pulse Ox 98 07/15/23 13:29 Oxygen Delivery Method Room Air 07/15/23 13:29 BMI result Body Mass Index 20.8 Const General: cooperative and no acute distress Resp Effort & Inspection: normal respiratory effort, able to speak in complete sentences, normal respiratory pattern, not labored, no pursed lip breathing, no respiratory distress and not tachypneic Auscultation: wheezes expiratory wheezes, scattered wheezes and throughout Psych Appearance: grossly normal Mental Status: mental status grossly normal Speech and movement: Pressured speech present Affect: normal affect Attitude: cooperative Thought process: Circumstantial thought process present Results AMB 14 Panel Urine Drug Screen Urine Marijuana (THC) Positive Last Edit by Laura Petersen CMA on 07/15/23 13:39 Urine Cocaine Positive Last Edit by Laura Petersen CMA on 07/15/23 13:39 Urine Morphine Negative Last Edit by Laura Petersen CMA on 07/15/23 13:39 Urine Methamphetamine Negative Last Edit by Laura Petersen CMA on 07/15/23 13:39 Urine Amphetamine Negative Last Edit by Laura Petersen CMA on 07/15/23 13:3 9 Urine Benzodiazepine Negative Last Edit by Laura Petersen CMA on 07/15/23 13:39 Urine Barbiturates Negative Last Edit by Laura Petersen CMA on 07/15/23 13: 39 Urine Methadone Negative Last Edit by Laura Petersen CMA on 07/15/23 13:39 Urine Buprenorphine Negative Last Edit by Laura Petersen CMA on 07/15/23 13 :39 Urine Tricyclic Antidepressant Negative Last Edit by Laura Petersen CMA on 07/15/23 13:39 Urine MDMA Negative Last Edit by Laura Petersen CMA on 07/15/23 13:39 Urine Oxycodone Negative Last Edit by Laura Petersen CMA on 07/15/23 13:39 Urine Phencyclidine Negative Last Edit by Laura Petersen CMA on 07/15/23 13 :39 Urine Propoxyphene Negative Last Edit by Laura Petresen CMA on 07/15/23 13: 39 Results Reviewed Results Reviewed: Laboratory Last Values POC Urine Buprenorphine Negative 07/15/23 13:38 POC Urine Morphine Negative 07/15/23 13:38 POC Urine Oxycodone Negative 07/15/23 13:38 POC Urine Methadone Negative 07/15/23 13:38 POC Urine Propoxyphene Negative 07/15/23 13:38 POC Urine Barbiturates Negative 07/15/23 13:38 POC U Tricyclic Antidpr Negative 07/15/23 13:38 POC Urine PCP Negative 07/15/23 13:38 POC Ur Amphetamines Negative 07/15/23 13:38 POC Ur Methamphetamine Negative 07/15/23 13:38 POC Urine MDMA Negative 07/15/23 13:38 POC Ur Benzodiazepine Negative 07/15/23 13:38 POC Urine Cocaine Positive 07/15/23 13:38 POC Ur Marijuana (THC) Positive 07/15/23 13:38 Assessment & Plan Assessment & Plan (1) Alcohol use disorder, severe, dependence: Code(s): F10.20 - Alcohol dependence, uncomplicated Plan: -Discussed with patient continuing to taper alcohol slowly -Provided education and educational hand out regarding withdrawal symptoms and when to present to the emergency department if needed -Discussed treatment options with him, at this time he is not a candidate for naltrexone due to his daily opiate use -Offered narcan, pt reports he has at home -Recovery supports discussed -Follow up 1 week Orders: Orders AMB 14 Panel Urine Drug Screen 07/15/23 Z51.81 - Encounter for therapeutic drug level monitoring Medications: New albuterol sulfate 5 mg inhalation Q6H PRN 600 mL 0RF shortness of breath or wheezing Changed From Flovent HFA 110 mcg/actuation (fluticasone propionate) 1 puff PO BID 12 grams 3RF NS To fluticasone propionate 110 mcg/actuation 1 puff PO BID 12 grams 0RF NS From albuterol sulfate 90 mcg/actuation inhalation To albuterol sulfate 90 mcg/actuation 1 puff inhalation TID PRN 6.7 grams 0RF shortness of breath or wheezing Coding Level of Care Code New Pt Level 4 (07704) Diagnoses Alcohol use disorder, severe, dependence F10.20
[2023-07-15 13:29] VITALS: BP 122/84; PULSE 92; O2SAT 98; BMI 20.8
== END 2023-07-15 14:57 | disposition home or self-care (01) ==
PROVIDERS: PCP Family Medicine; Visit Provider Nurse Practitioner Family
DX: F10.20 Alcohol dependence, uncomplicated (principal)
CPT/HCPCS: 99204

== ENCOUNTER 2023-07-19 10:22 | Outpatient (AMB) | payer MEDICARE, MEDICAID, SELFPAY ==
[2023-07-19 10:28] VITALS: BP 102/70; PULSE 87; RESP 13; TEMP 36.6; O2SAT 99; BMI 20.7
--- NOTE | 2023-07-19 10:28 | A.OFFPC_ITS ---
Vital Signs 07/19/23 10:28 Height 5 ft 11 in Weight 148 lb 6 oz BMI 20.7 BP 102/70 Blood Pressure Location Rt brachial Position Sitting Respiration 13 Pulse 87 Pulse Source Pulse Oximeter Temp 97.8 F Temp Source Temporal Artery Scan Pulse Oximetry (%) 99 Oxygen Delivery Method Room Air Intake Visit Reasons: etoh abuse Intake Note: Patient states that nebulizer medication did not go through for nebulizer machine. Patient needs refill on Naproxen, Vitamin B1, Topical olintment and nebulizer solution. Mortgage Loan Officer Originator Required: No Allergies penicillin V Allergy (Unknown, Verified 07/19/23 10:34) Nausea and Vomiting Penicillins [PENICILLINS] Allergy (Unknown, Verified 07/19/23 10:34) NAUSEA/VOMITING MUSCLE RELAXER Allergy (Unknown, Uncoded 07/15/23 13:37) FOAMING AT THE MOUTH - CANNOT REMEMBER NAME OF DRUG Medication List - Last Reconciled 07/19/23 by CHRISTIAN Alarcon albuterol sulfate 90 mcg/actuation 1 puff inhalation TID PRN albuterol sulfate 5 mg inhalation Q6H PRN clonidine HCl 0.2 mg PO BEDTIME fluticasone propionate 110 mcg/actuation 1 puff PO BID NS folic acid 1 mg PO DAILY mupirocin 2% 1 appl topical BID PRN naproxen 500 mg PO BID PRN omeprazole 20 mg PO DAILY 30 days thiamine HCl (vitamin B1) 250 mg PO DAILY Tobacco use date assessed: 06/30/23 Dental Screening Dental Screen Date: 07/19/23 Did you have a dental visit in the last 12 months?: Yes Did you have a dental problem in the last 6 months where you did not have access to dental care?: No Was dental information given to patient?: Patient has dentist HPI HPI Comments History of Present Illness Details Here today to f/u on etoh use with Latonya cano Since last visit he did have a visit with MAT at [facility] No meds ordered d/t current opiate use Cont to reduce etoh use Labs from 06/2023 reviewed w/ him today Last drink this AM 1 nip No sz. Next appt at [facility] 07/23/23 PFS Medical History (Updated 07/19/23 @ 11:05 by CHRISTIAN Alarcon) Skin lesion Bilateral impacted cerumen Upper respiratory tract infection Acquired syphilis Screening for STD (sexually transmitted disease) Polyuria Penile discharge Lichenification Laboratory examination ordered as part of a routine general medical examination Tinea barbae Folliculitis GERD (gastroesophageal reflux disease) ETOH abuse Depression Anxiety Surgical History (Updated 07/19/23 @ 10:37 by Rufina Rao MA) No pertinent past surgical history Family History Other Mental health disorder Substance abuse Social History Housing: Apartment Patient Tobacco Use Status: Former Tobacco user Cigarette Packs Per Day: 1 Years Smoked: 20 e-Cigarette/Vaping Use: Never Used service: No Current occupational status: unemployed Current occupational exposures/hazards: No Cognitive needs: No Hearing needs: No Vision needs: No Physical exam (Primary Care) Vital Signs: Last Vital Signs Temp 97.8 F 07/19/23 10:28 Pulse 87 07/19/23 10:28 Resp 13 07/19/23 10:28 BP 102/70 07/19/23 10:28 Pulse Ox 99 07/19/23 10:28 Oxygen Delivery Method Room Air 07/19/23 10:28 BMI result Body Mass Index 20.7 Tobacco/Smoking Status: Tobacco use Status Tobacco use date assessed 06/30/23 07/19/23 10:38 Patient Tobacco Use Status Former Tobacco user 07/19/23 10:38 e-Cigarette/Vaping Use Never Used 07/19/23 10:38 Const Other: Awake alert oriented accompanied by ex- Tangential speech, pleasant Sclera is nonicteric Mucous membranes moist Lung sounds course throughout Regular rate and rhythm Assessment and Plan Assessment & Plan (1) Alcohol use disorder, severe, dependence: Comment: Active with CCC at [facility]. He is aware that he should not at abruptly stop his alcohol use. He needs to follow closely with his outpatient team. Educated about alcohol withdrawal seizures on reasons to seek emergency room level of care. I would like to see him back in 2 week to follow-up. Code(s): F10.20 - Alcohol dependence, uncomplicated (2) ETOH abuse: Comment: active w/ CCC at [facility] Code(s): F10.10 - Alcohol abuse, uncomplicated (3) Substance use disorder: Comment: polysubstance, active Marijuana, cocaine, opiates, etoh Code(s): F19.90 - Other psychoactive substance use, unspecified, uncomplicated Plan: This note is constructed using voice recognition software. While every effort has been made to ensure accuracy in ross furnace operator, still errors may have been included Sometimes, these errors may affect the content or meaning of the given sentence . Total time spent caring for the patient today was 30 minutes. This includes time spent before the visit reviewing the chart, time spent during the visit, and time spent after the visit on documentation Medications: Refilled clonidine HCl 0.2 mg PO BEDTIME 30 tabs 0RF thiamine HCl (vitamin B1) 250 mg PO DAILY 30 tabs 0RF omeprazole 20 mg PO DAILY 30 caps 0RF 30 days folic acid 1 mg PO DAILY 30 tabs 0RF Coding Level of Care Code Est Pt Level 4 (41548) Diagnoses Alcohol use disorder, severe, dependence F10.20 ETOH abuse F10.10 Substance use disorder F19.90
== END 2023-07-19 11:05 | disposition home or self-care (01) ==
PROVIDERS: PCP Family Medicine; Visit Provider Nurse Practitioner Family
DX: F10.20 Alcohol dependence, uncomplicated (principal); F19.90 Other psychoactive substance use, unspecified, uncomplicated
CPT/HCPCS: 99214

== ENCOUNTER 2023-07-23 11:01 | Outpatient (AMB) | payer MEDICARE, MEDICAID, SELFPAY ==
--- NOTE | 2023-07-23 11:02 | A.OFFVISCC_ITS ---
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 He denies withdrawal symptoms, no tremor or diaphoresis noted He has also discontinued use of cocaine (last use 4 days ago), and marijuana (last use 2-3 days ago). He is feeling good about these positive life changes [facility] Medical History (Updated 07/23/23 @ 11:33 by Iliana Clark NP) Skin lesion Bilateral impacted cerumen Upper respiratory tract infection Acquired syphilis Screening for STD (sexually transmitted disease) Polyuria Penile discharge Lichenification Laboratory examination ordered as part of a routine general medical examination Tinea barbae Folliculitis GERD (gastroesophageal reflux disease) ETOH abuse Depression Anxiety Surgical History (Updated 07/19/23 @ 10:37 by Rufina Rao MA) No pertinent past surgical history Family History Other Mental health disorder Substance abuse Social History Housing: Apartment Patient Tobacco Use Status: Former Tobacco user Cigarette Packs Per Day: 1 Years Smoked: 20 e-Cigarette/Vaping Use: Never Used service: No Current occupational status: unemployed Current occupational exposures/hazards: No Cognitive needs: No Hearing needs: No Vision needs: No Review of Systems Const Reports as per HPI Physical Exam Vital Signs: Last Vital Signs Pulse 86 07/23/23 11:07 BP 130/86 07/23/23 11:07 Pulse Ox 98 07/23/23 11:07 Oxygen Delivery Method Room Air 07/23/23 11:07 Const General: cooperative and no acute distress Nutritional Appearance: thin Resp Effort & Inspection: normal respiratory effort and able to speak in complete sentences Psych Appearance: grossly normal Mental Status: mental status grossly normal Speech and movement: Normal speech and movement present Affect: normal affect Attitude: cooperative Assessment & Plan Assessment & Plan (1) Alcohol use disorder, severe, dependence: Code(s): F10.20 - Alcohol dependence, uncomplicated Plan: -Continue to slowly taper alcohol use -Reviewed signs and symptoms of alcohol withdrawal and when to seek a higher level of care -Follow up 1 week (2) Substance use disorder: Comment: polysubstance, active Marijuana, cocaine, opiates, etoh Code(s): F19.90 - Other psychoactive substance use, unspecified, uncomplicated Plan: -Has been abstinent for 3-4 days -Harm reduction discussed Coding Level of Care Code Est Pt Level 3 (23232) Diagnoses Alcohol use disorder, severe, dependence F10.20 Substance use disorder F19.90
[2023-07-23 11:07] VITALS: BP 130/86; PULSE 86; O2SAT 98
== END 2023-07-23 11:25 | disposition home or self-care (01) ==
PROVIDERS: PCP Family Medicine; Visit Provider Nurse Practitioner Family
DX: F10.20 Alcohol dependence, uncomplicated (principal); F19.90 Other psychoactive substance use, unspecified, uncomplicated
CPT/HCPCS: 99213

== ENCOUNTER → 2023-07-23 11:01 | Outpatient (BNVA) | payer MEDICARE, MEDICAID, SELFPAY | PROVIDERS: PCP Family Medicine; Visit Provider Nurse Practitioner Family | DX: F10.20 Alcohol dependence, uncomplicated (principal); F19.90 Other psychoactive substance use, unspecified, uncomplicated | CPT/HCPCS: 99212 ==

== ENCOUNTER 2023-08-28 04:03 | Emergency (ER) | payer MEDICARE, MEDICAID, SELFPAY ==
--- NOTE | ~2023-08-28 | XR_ITS ---
EXAMINATION: XR CHEST CLINICAL INFORMATION: Shortness of breath COMPARISON: 05/28/2019 TECHNIQUE: Frontal view of the chest was obtained. FINDINGS: The lungs are clear with no focal consolidation. No evidence of pneumothorax, pulmonary edema, or pleural effusions. The cardiomediastinal silhouette is unremarkable. No acute osseous findings. XR/XR chest 1V IMPRESSION: No acute cardiopulmonary findings.
[2023-08-28 04:09] VITALS: BP 133/88; PULSE 70; O2SAT 100
[2023-08-28 04:14] VITALS: BP 100/69; PULSE 71; RESP 10; O2SAT 100; BMI 23.6
--- NOTE | 2023-08-28 04:59 | MHC.EDTECH ---
T/w attempted to collect labs on Pt but he refused at this time. John POLO aware
--- NOTE | 2023-08-28 05:31 | PC.NURSE ---
this RN attempted to get labs from patient. he is continuing to refuse at this time.
--- NOTE | 2023-08-28 06:52 | ED_ITS ---
HPI - SOB/Dyspnea General Chief Complaint: Dyspnea Stated Complaint: SOB,94% RA,ALB GIVEN PER EMS Time Seen by Provider: 08/28/23 06:52 Source: patient, EMS, RN notes reviewed and old records reviewed Mode of arrival: EMS Limitations: no limitations History of Present Illness HPI Narrative: 53 year old male with pmhx of COPD, asthma, etoh use disorder, substance use disorder, acquired syphilis, anxiety, depression, gout, and arthritis presents to the ED today via EMS for evaluation of shortness of breath x days. He admits to feeling short of breath intermittently over the last few days. Endorses using his albuterol inhaler and nebulizer at home more often which improves symptoms temporarily. He is not currently on PO steroids. Admits to drinking a mixed drink while at the [employer] [facility] yesterday with a friend. He states he fell asleep in the car on the ride home as he was tired. Upon arriving home, his friend woke him up and he immediately began to endorse shortness of breathing, prompting her to call EMS for further evaluation. Endorses occasional intranasal crack cocaine use. Denies using yesterday. Admits to daily EtOH consumption, approximately 2 nips a day. Denies any other illicit substance use. Denies known sick contacts. Denies recent travel or long car rides. Denies fevers, chills, sore throat, cough, sputum production, chest pain, palpitations, wheezing, nausea, vomiting, diarrhea, calf pain/swelling, rashes. Related Data Previous Rx's ?Medication ?Instructions ?Recorded naproxen 500 mg tablet 500 mg PO BID PRN pain #14 tabs 12/31/22 mupirocin 2 % topical ointment 1 appl topical BID PRN axilla 05/07/23 bumps #22 grams fluticasone propionate 110 1 puff PO BID #12 grams 07/15/23 mcg/actuation HFA aerosol inhaler clonidine HCl 0.2 mg tablet 0.2 mg PO BEDTIME #30 tabs 07/19/23 folic acid 1 mg tablet 1 mg PO DAILY #30 tabs 07/19/23 omeprazole 20 mg capsule,delayed 20 mg PO DAILY 30 days #30 caps 07/19/23 release thiamine HCl (vitamin B1) 250 mg 250 mg PO DAILY #30 tabs 07/19/23 tablet albuterol sulfate 90 mcg/actuation 1 puff inhalation TID PRN 07/28/23 aerosol inhaler shortness of breath or wheezing #6.7 grams albuterol sulfate 2.5 mg/3 mL 2.5 mg (3 mL) inhalation Q6H PRN 08/02/23 (0.083 %) solution for nebulization shortness of breath or wheezing #180 mL albuterol sulfate 2.5 mg/0.5 mL 2.5 mg (0.5 mL) inhalation Q20M 08/28/23 solution for nebulization #30 ea albuterol sulfate 90 mcg/actuation 2 inh inhalation Q20M PRN 08/28/23 breath activated powder inhaler shortness of breath #1 ea prednisone 50 mg tablet 50 mg PO DAILY 5 days #5 tabs 08/28/23 Allergies Allergy/AdvReac Type Severity Reaction Status Date / Time penicillin V Allergy Unknown Nausea and Verified 08/28/23 04:16 Vomiting Penicillins [PENICILLINS] Allergy Unknown NAUSEA/VOMI Verified 08/28/23 04:16 TING MUSCLE RELAXER Allergy Unknown FOAMING AT Uncoded 08/28/23 04:16 THE MOUTH - CANNOT REMEMBER NAME OF DRUG Review of Systems 2 Review of Systems: Constitutional: No fever, chills, fatigue, night sweats, weight changes ENT/Mouth: No ear pain, hearing loss, nasal congestion, sinus pain, rhinorrhea, sore throat Eyes: No eye pain, swelling, redness, vision changes, discharge Cardio: No chest pain, palpitations, OLIVER, orthopnea, peripheral edema Pulm: No SOB, cough, sputum, wheezing, dyspnea, hemoptysis, + shortness of breath GI: No nausea, vomiting, hematemesis, abdominal pain, diarrhea, constipation, hematochezia, melena : No irregular bleeding, dysuria, frequency, urgency, hesitancy, hematuria, flank pain, urinary flow changes, urinary incontinence or retention MSK: No back pain, neck pain, joint pain, myalgias Skin: No lesions, rashes Neuro: No weakness, numbness, paresthesias, LOC, dizziness, headache Psych: No anxiety/panic, depression, SI/HI, AH/VH All other systems reviewed and are negative. [facility] Past Medical History Attestation statement: The following information was validated with the patient. Source: old records reviewed and nursing notes reviewed Medical History Skin lesion Bilateral impacted cerumen Upper respiratory tract infection Acquired syphilis Screening for STD (sexually transmitted disease) Polyuria Penile discharge Lichenification Laboratory examination ordered as part of a routine general medical examination Tinea barbae Folliculitis GERD (gastroesophageal reflux disease) ETOH abuse Depression Anxiety Surgical History No pertinent past surgical history Family History Family History Other Mental health disorder Substance abuse Social History Social History Housing: Apartment Alcohol intake: current Alcohol intake frequency: 3 or more drinks per day Alcohol type: beer and hard liquor Patient Tobacco Use Status: Former Tobacco user Cigarette Packs Per Day: 1 Years Smoked: 20 Smoked in Last 30 Days: No e-Cigarette/Vaping Use: Never Used Use of substances other than those prescribed or required for medical reasons: No Advance Directives: No Advance Directives Information Provided: Yes service: No Current occupational status: unemployed Current occupational exposures/hazards: No Cognitive needs: No Hearing needs: No Vision needs: No Physical Exam 2 Vital Signs: Vital Signs: Last Vital Signs Pulse 71 08/28/23 07:04 Resp 12 08/28/23 07:04 BP 115/77 08/28/23 07:04 Pulse Ox 100 08/28/23 04:14 O2 Del Method Room Air 08/28/23 07:04 O2 Flow Rate 96 08/28/23 07:04 BMI result Body Mass Index 23.6 Vital signs stable. Not hypoxic Const: Other: No respiratory distress General: cooperative, healthy appearing, comfortable and no acute distress Orientation/consciousness: patient oriented x3 Limitations: no limitations HEENT: Head: Yes normal to inspection, Yes No palpable skull fracture present, Yes normocephalic and Yes atraumatic General nose exam: Normal external nose present Face and sinus: Yes normal facial exam Eyes: General: appearance normal, both eyes and all related structures C onjunctivae: conjunctivae normal Sclerae: sclerae normal Pupils: Equal, round and reactive pupils present Neck: Neck: Yes normal visual inspection, Yes full ROM, Yes no lymphadenopathy and Yes no JVD Chest: Chest palpation & inspection: normal inspection of the chest and normal palpation of entire chest wall Resp: Other: Diminished breath sounds bilaterally Effort & Inspection: normal respiratory effort, able to speak in complete sentences, no stridor, not tachypneic and no tripod positioning Auscultation: clear to auscultation bilaterally, no rhonchi and no wheezes Cardio: Jugular venous distension: no JVD Rate: regular rate Rhythm: r egular rhythm Skin: General skin exam: no rashes or lesions noted Neuro: General: patient oriented x3, gait normal and moves all extremities Cranial nerves: Yes Equal, round and reactive pupils present Extrem: General: Yes normal to inspection, Yes full ROM and Yes capillary refill normal Course Course Course Narrative: 1916-- on my initial examination, patient is reporting improvement in symptoms after receiving breathing treatment in route to the ED. chest xray does not demonstrate signs on pneumonia for fluid. will administer solumedrol for suspected copd exacerbation. labs and viral serology pending. 917-- CBC without leukocytosis or left shift. No anemia. H&H stable. Chemistry without acute electrolyte abnormality requiring intervention. Renal function WNL. Troponin undetectable > ACS unlikely. Ethanol 85. He has tested negative for COVID, flu, RSV. He continues to sat 100% on room air. Respirations have improved and have remained between 12 and 16. He is not in acute respiratory distress. He continues to endorse improvement in symptoms. I feel comfortable discharging patient home with prednisone. Patient has remained stable throughout ED visit today. Discussed worrisome signs and symptoms and when to return to the ED. All questions answered at this time. Patient is agreeable with disposition and stable for discharge. Medications Administered Discontinued Medications Generic Name Dose Route Start Last Admin Trade Name Freq PRN Reason Stop Dose Admin Methylprednisolone Sodium Succinate 125 mg 08/28/23 07:06 08/28/23 08:23 Methylprednisolone Sod Succ 125 Mg/2 Ml Vial IVPUSH 08/28/23 07:07 125 mg ONCE ONE Administration Medical Decision Making Medical Decision Making [facility] Narrative: 53 year old male with pmhx of COPD, asthma, etoh use disorder, substance use disorder, acquired syphilis, anxiety, depression, gout, and arthritis presents to the ED today via EMS for evaluation of shortness of breath x days. Patient is satting 100% on room air. Initial respirations of 10 however on my examination, respirations are 16. He is afebrile. Nontoxic appearing and in no acute distress. On exam, decreased breath sounds bilaterally. Lungs are CTA bilaterally. No wheezes or rhonchi. No stridor. Speaking in full, complete sentences. No rashes. RRR. Differential diagnosis includes COPD exacerbation, asthma, bronchitis, pneumonia, viral syndrome, acute ETOH intoxication, polysubstance use. Lower suspicion for pleural effusion, PE, ACS, arrhythmia, overdose, ARDS. CXR obtained prior to my assumption of care. Plan for labs, viral serology, steroid, and re-evaluation. Differential Diagnosis Differential Diagnoses: The differential diagnosis associated with the presentation includes As above Admission/Observation Consideration of admission/observation: Escalation of care including admission/observation considered In this patient with acute COPD/asthma exacerbation, admission was considered. Lab Data MDM Lab Attestation statement: I reviewed the patient's lab results. As above 08/28/23 08:22 08/28/23 08:22 Labs: Lab Results 08/28/23 Range/Units 08:22 WBC 2.7 L (4.8-10.8) X10*3/uL RBC 4.73 (4.60-5.80) X10*6/uL Hgb 14.0 (14.0-18.0) g/dl Hct 41.9 L (42.0-52.0) % MCV 88.6 (80.0-98.0) fL MCH 29.6 (27.0-33.0) pg MCHC 33.4 (31.0-36.0) g/dl RDW 13.2 (11.0-16.0) % Plt Count 335 D (160-400) X10*3/uL MPV 9.1 L (9.4-12.4) fL Immature Gran % (Auto) 0.4 (0.0-0.4) % Neut % (Auto) 42.4 L (45-73) % Lymph % (Auto) 30.6 (20-40) % [place] % (Auto) 21.8 H (2-11) % Eos % (Auto) 4.1 H (0-4) % Baso % (Auto) 0.7 (0-2) % Lymph # (Auto) 0.8 L (1.2-4.9) X10*3/uL [place] # (Auto) 0.6 (0.1-1.2) X10*3/uL Eos # (Auto) 0.1 (0.0-0.4) X10*3/uL Baso # (Auto) 0.0 (0.0-0.2) X10*3/uL Abs Immat Gran (auto) 0.01 (0.00-0.03) X10*3/uL Absolute Neuts (auto) 1.2 L (2.0-8.3) x10*3/uL Absolute Nucleated RBC 0.000 (0.0-0.012) X10*3/uL Nucleated RBC % (auto) 0.0 (0.0-0.2) /100WBC Smear Tech's Comments VERIFIED Sodium 141 (135-145) mmol/L Potassium 4.6 (3.3-5.1) mmol/L Chloride 107 (96-108) mmol/L Carbon Dioxide 24 (22-29) mmol/L Anion Gap 15 (12-20) BUN 10 (9-16) mg/dL Creatinine 0.77 (0.5-1.4) mg/dL Estim Creat Clear Calc 108.3 Estimated GFR > 60 Random Glucose 90 (60-115) mg/dL Calcium 9.4 (8.4-10.2) mg/dL Troponin I High Sens < 2.7 (<3.5-35.0) ng/L Ethyl Alcohol 85 mg/dL Influenza Type A (PCR) NEGATIVE (Negative) Influenza Type B (PCR) NEGATIVE (Negative) RSV RNA Qual (PCR) NEGATIVE (Negative) SARS-CoV-2 RNA (RT-PCR) NEGATIVE (Negative) Independent Interpretation I performed an independent interpretation of an: Plain X-Ray Interpretation: Chest x-ray does not exhibit infiltrate or consolidation, agree with radiologist's interpretation. Radiology Impression Discussion of test interpretation with radiology: I have reviewed the radiologist's reading. Radiologist Impression: EXAMINATION: XR CHEST CLINICAL INFORMATION: Shortness of breath COMPARISON: 05/28/2019 TECHNIQUE: Frontal view of the chest was obtained. FINDINGS: The lungs are clear with no focal consolidation. No evidence of pneumothorax, pulmonary edema, or pleural effusions. The cardiomediastinal silhouette is unremarkable. No acute osseous findings. XR/XR chest 1V IMPRESSION: No acute cardiopulmonary findings. Independent Historian Clinical information obtained from an independent historian. History obtained from or confirmed by: EMS External Record Review External record reviewed: Inpatient record, Office record, Outpatient record, Prior outpatient labs, Prior outpatient radiology, Primary care record and Outside ED record Prescription Management I considered prescription management with: Other (Prednisone) Chronic Conditions Patient?s care impacted by: Other (Asthma, COPD) Social Determinants Patient?s care significantly limited by Social Determinants of Health including: Low income and Other Social Determinant of Health Critical Care Time Critical Care Time Critical Care Time: Yes Total Critical Care Time: 45 Attestation: Critical care time in the amount of 45 minutes has been provided to the patient in terms of direct patient care, frequent reevaluation, review and interpretation of medical data and results, and management of potentially life- threatening conditions. This is all outside of any medical procedures. Discharge Plan Discharge Clinical Impression: Acute exacerbation of chronic obstructive airways disease Patient Disposition: Home, Self-Care Instructions: How to Use a Dry-Powder Inhaler (ED), COPD (Chronic Obstructive Pulmonary Disease) (ED) Additional Instructions: You were evaluated in the ED today for shortness of breath. Your chest x-ray does not show signs of pneumonia or fluid. You tested negative for COVID, flu, RSV. Your labs are reassuring. Prednisone is a steroid that has been sent to your pharmacy. You received a dose of steroids in the ED today so please start this prescription tomorrow. Albuterol inhaler and solution for nebulizer have been sent to your pharmacy. Stay away from drugs as these can kill you. Please follow-up with your primary care provider. Return with new or worsening symptoms. In the case of an emergency call 911. Prescriptions: New prednisone 50 mg tablet 50 mg PO DAILY 5 Days Qty: 5 0RF albuterol sulfate 90 mcg/actuation aerosol powdr breath activated 2 inh inhalation Q20M PRN (Reason: shortness of breath) Qty: 1 0RF albuterol sulfate 2.5 mg/0.5 mL solution for nebulization 2.5 mg inhalation Q20M Qty: 30 0RF Rx Instructions: for up to 3 doses No Action albuterol sulfate 90 mcg/actuation HFA aerosol inhaler 1 puff inhalation TID PRN (Reason: shortness of breath or wheezing) Qty: 6.7 0RF albuterol sulfate 2.5 mg /3 mL (0.083 %) solution for nebulization 2.5 mg inhalation Q6H PRN (Reason: shortness of breath or wheezing) Qty: 180 0RF naproxen 500 mg tablet 500 mg PO BID PRN (Reason: pain) Qty: 14 0RF mupirocin 2 % ointment 1 appl topical BID PRN (Reason: axilla bumps) Qty: 22 0RF clonidine HCl 0.2 mg tablet 0.2 mg PO BEDTIME Qty: 30 0RF folic acid 1 mg tablet 1 mg PO DAILY Qty: 30 0RF thiamine HCl (vitamin B1) 250 mg tablet 250 mg PO DAILY Qty: 30 0RF omeprazole 20 mg capsule,delayed release(DR/EC) 20 mg PO DAILY 30 Days Qty: 30 0RF Flovent HFA 110 mcg/actuation HFA aerosol inhaler 1 puff PO BID Qty: 12 0RF Referrals: Louis Vazquez MD [Primary Care Provider] - Print Language: Tuvaluan
[2023-08-28 07:04] VITALS: BP 115/77; PULSE 71; RESP 12
[2023-08-28] MEDS: methylPREDNISolone Sod Succ 125 MG/2 ML VIAL IVPUSH (08:23)
[2023-08-28 08:39] LABS: Basophils Percent Auto 0.7 % (0-2); Eosinophils Absolute Auto 0.1 X10*3/uL (0.0-0.4); Eosinophils Percent Auto 4.1 % (0-4); Hematocrit 41.9 % (42.0-52.0); Imm Gran Abs Auto 0.01 X10*3/uL (0.00-0.03); Imm Gran Pct Auto 0.4 % (0.0-0.4); Lymphocytes Absolute Auto 0.8 X10*3/uL (1.2-4.9); Lymphocytes Percent Auto 30.6 % (20-40); MANUAL DIFF FLAG SCAN; Mean Corpuscular HGB Conc 33.4 g/dl (31.0-36.0); Mean Corpuscular Hemoglobin 29.6 pg (27.0-33.0); Mean Corpuscular Volume 88.6 fL (80.0-98.0); Mean Platelet Volume 9.1 fL (9.4-12.4); Monocytes Absolute Auto 0.6 X10*3/uL (0.1-1.2); Monocytes Percent Auto 21.8 % (2-11); Neutrophils Absolute Auto 1.2 x10*3/uL (2.0-8.3); Neutrophils Percent Auto 42.4 % (45-73); Platelet Count 335 X10*3/uL (160-400); Red Blood Count 4.73 X10*6/uL (4.60-5.80); Red Cell Distribution Width 13.2 % (11.0-16.0); SCAN SMEAR FLAG 1; White Blood Count 2.7 X10*3/uL (4.8-10.8)
[2023-08-28 08:59] LABS: Anion Gap 15 (12-20); Blood Urea Nitrogen 10 mg/dL (9-16); Calcium 9.4 mg/dL (8.4-10.2); Carbon Dioxide 24 mmol/L (22-29); Chloride 107 mmol/L (96-108); Creatinine Clr Calc Pharmacy 108.3; Estimated Glomerular Filt Rate > 60; Ethanol 85 mg/dL; Glucose Random 90 mg/dL (60-115); Potassium 4.6 mmol/L (3.3-5.1); Sodium 141 mmol/L (135-145); Troponin-I High Sensitivity < 2.7 ng/L (<3.5-35.0)
[2023-08-28 09:02] LABS: SLIDE REVIEW VERIFIED
[2023-08-28 09:12] LABS: Influenza A PCR NEGATIVE (Negative); Influenza B PCR NEGATIVE (Negative); Resp Syncy Virus RNA Qual PCR NEGATIVE (Negative); SARS COV2 PCR INHOUSE NEGATIVE (Negative)
[2023-08-28 10:18] VITALS: BP 123/84; PULSE 82; RESP 19; TEMP 36.6; O2SAT 97
== END 2023-08-28 10:19 | disposition home or self-care (01) ==
PROVIDERS: Physician Assistant Medical; Emergency Provider Emergency Medicine; PCP Family Medicine
DX: J44.1 Chronic obstructive pulmonary disease with (acute) exacerbation (principal); Z87.891 Personal history of nicotine dependence; Z11.52 Encounter for screening for COVID-19; Z20.828 Contact with and (suspected) exposure to other viral communicable diseases; Z79.899 Other long term (current) drug therapy
CPT/HCPCS: 0241U; 36415; 71045; 80048; 80307; 84484; 85025; 96374; 99284; J2919

== ENCOUNTER 2023-09-24 09:36 | Outpatient (AMB) | payer MEDICARE, MEDICAID, SELFPAY ==
[2023-09-24 09:38] VITALS: BP 116/82; PULSE 91; O2SAT 99; BMI 23.2
--- NOTE | 2023-09-24 09:38 | AM.OFFWIN_ITS ---
Intake Vital Signs 09/24/23 09:38 Height 5 ft 9 in Weight 157 lb 4 oz BMI 23.2 BP 116/82 Blood Pressure Location Lt brachial Position Sitting Pulse 91 Pulse Source Pulse Oximeter Pulse Oximetry (%) 99 Oxygen Delivery Method Room Air Intake Visit Reasons: Irritated vargas , face feels on fire Intake Note: Pt presents to the office today for c/o irritated vargas and his face feels on fire. Pt states he used dye for his vargas and now he has a few bumps and irritation. Patient Tobacco Use Status: Former Tobacco user Allergies penicillin V Allergy (Unknown, Verified 09/24/23 09:58) Nausea and Vomiting Penicillins [PENICILLINS] Allergy (Unknown, Verified 09/24/23 09:58) NAUSEA/VOMITING MUSCLE RELAXER Allergy (Unknown, Uncoded 09/24/23 09:58) FOAMING AT THE MOUTH - CANNOT REMEMBER NAME OF DRUG HPI Irritated vargas , face feels on fire HPI Details 53 year old male patient presents today with a 1 week history of facial irritation. He states he used a vargas dye about 1 week ago and developed itchy, red, raised bumps on is face after doing so. He had an old topical steroid cream which he has been using without significant relief. He is still having a lot of itching, particularly at night. [facility] Medical History Skin lesion Bilateral impacted cerumen Upper respiratory tract infection Acquired syphilis Screening for STD (sexually transmitted disease) Polyuria Penile discharge Lichenification Laboratory examination ordered as part of a routine general medical examination Tinea barbae Folliculitis GERD (gastroesophageal reflux disease) ETOH abuse Depression Anxiety Surgical History No pertinent past surgical history Family History Other Mental health disorder Substance abuse Social History Housing: Apartment Alcohol intake: current Alcohol intake frequency: 3 or more drinks per day Alcohol type: beer and hard liquor Patient Tobacco Use Status: Former Tobacco user Cigarette Packs Per Day: 1 Years Smoked: 20 e-Cigarette/Vaping Use: Never Used service: No Current occupational status: unemployed Current occupational exposures/hazards: No Cognitive needs: No Hearing needs: No Vision needs: No Review of Systems Const All systems reviewed & are unremarkable except as noted in HPI and below Physical Exam Vital Signs: Last Vital Signs Pulse 91 09/24/23 09:38 BP 116/82 09/24/23 09:38 Pulse Ox 99 09/24/23 09:38 Oxygen Delivery Method Room Air 09/24/23 09:38 BMI result Body Mass Index 23.2 Const General: cooperative, comfortable and no acute distress Resp Effort & Inspection: normal respiratory effort Auscultation: clear to auscultation bilaterally Cardio Rate: regular rate Rhythm: regular rhythm Skin Other: Pruritic macular erythematous facial rash under vargas. No open lesions. Some starting to crust over. Extrem General: Yes capillary refill normal and Yes no clubbing, cyanosis or edema Psych Appearance: grossly normal Mental Status: mental status grossly normal Speech and movement: Normal speech and movement present Assessment & Plan Assessment & Plan (1) Irritant contact dermatitis: Code(s): L24.9 - Irritant contact dermatitis, unspecified cause Qualifiers: Contact dermatitis trigger: cosmetics Qualified Code(s): L24.3 - Irri tant contact dermatitis due to cosmetics Plan: Patient has a contact derm on face in vargas area. He does not want topical cream. I am going to start him on a short course of PO prednisone as it appears his rash is starting to resolve. I will also prescribe hydroxyzine at HS as he has been having difficulty sleeping due to the itching. We reviewed indications, use, possible s/e of medications. Advised to refrain from using this product again. If he does not improve with treatment, he can return to the clinic for further evaluation. He agrees to plan. Patient requesting a Ventolin inhaler refill as his current one is running low. Will refill this. Medications: New hydroxyzine HCl 25 mg PO BEDTIME 7 tabs 0RF L24.3 - Irritant contact dermatitis due to cosmetics prednisone 20 mg PO BID 5 days 10 tabs 0RF L24.3 - Irritant contact dermatitis due to cosmetics Refilled albuterol sulfate 90 mcg/actuation 1 puff inhalation TID PRN 6.7 grams 0RF sh ortness of breath or wheezing J44.9 - Chronic obstructive pulmonary disease, unspecified Discontinued prednisone Discontinued Reason: Patient Completed Course 50 mg PO DAILY 5 days 5 tabs 0RF Coding Level of Care Code Est Pt Level 4 (88796) Diagnoses Irritant contact dermatitis due to cosmetics L24.3 Contact dermatitis trigger: cosmetics
== END 2023-09-24 10:41 | disposition home or self-care (01) ==
PROVIDERS: PCP Family Medicine; Visit Provider Nurse Practitioner Family
DX: L24.3 Irritant contact dermatitis due to cosmetics (principal)
CPT/HCPCS: 99214

== ENCOUNTER 2023-10-19 05:22 | Emergency (ER) | payer MEDICARE, MEDICAID, SELFPAY ==
--- NOTE | ~2023-10-19 | XR_ITS ---
EXAMINATION: XR HAND/WRIST, LEFT CLINICAL INFORMATION: Swelling and pain COMPARISON: None TECHNIQUE: PA, lateral, and oblique views of the left hand and wrist. FINDINGS: No fracture or dislocation. Alignment and articulations maintained. Fifth DIP is held in flexion. No focal soft tissue swelling. XR/XR hand wrist LT IMPRESSION: No acute bony pathology.
[2023-10-19 05:26] VITALS: BP 134/84; PULSE 70; RESP 16; TEMP 35.8; O2SAT 100; BMI 22.8
--- NOTE | 2023-10-19 07:08 | ED.GENADULT ---
HPI - General Adult General Chief complaint: General Medical Stated complaint: Swollen L hand/Migraines Time Seen by Provider: 10/19/23 07:08 History of Present Illness HPI narrative: The patient is a 53-year-old male who states that he has a history of arthritis. He feels that he is having flare of arthritis in his left wrist or forearm. He says that he has severe pain that is not managed by nonsteroidal anti-inflammatories. He says he has been unable to sleep the last 2 days because of pain. He says he has been drinking more alcohol because of pain. He does not think he has had any recent injury of the left arm. He does not think he has had any fever, sweats, chills. He is also complaining of a headache that he thinks his a migraine headache Related Data Previous Rx's ?Medication ?Instructions ?Recorded naproxen 500 mg tablet 500 mg PO BID PRN pain #14 tabs 12/31/22 mupirocin 2 % topical ointment 1 appl topical BID PRN axilla 05/07/23 bumps #22 grams fluticasone propionate 110 1 puff PO BID #12 grams 07/15/23 mcg/actuation HFA aerosol inhaler clonidine HCl 0.2 mg tablet 0.2 mg PO BEDTIME #30 tabs 07/19/23 folic acid 1 mg tablet 1 mg PO DAILY #30 tabs 07/19/23 omeprazole 20 mg capsule,delayed 20 mg PO DAILY 30 days #30 caps 07/19/23 release thiamine HCl (vitamin B1) 250 mg 250 mg PO DAILY #30 tabs 07/19/23 tablet albuterol sulfate 2.5 mg/3 mL 2.5 mg (3 mL) inhalation Q6H PRN 08/02/23 (0.083 %) solution for nebulization shortness of breath or wheezing #180 mL albuterol sulfate 2.5 mg/0.5 mL 2.5 mg (0.5 mL) inhalation Q20M 08/28/23 solution for nebulization #30 ea albuterol sulfate 90 mcg/actuation 2 inh inhalation Q20M PRN 08/28/23 breath activated powder inhaler shortness of breath #1 ea albuterol sulfate 90 mcg/actuation 1 puff inhalation TID PRN 09/24/23 aerosol inhaler shortness of breath or wheezing #6.7 grams hydroxyzine HCl 25 mg tablet 25 mg PO BEDTIME #7 tabs 09/24/23 prednisone 20 mg tablet 20 mg PO BID 5 days #10 tabs 09/24/23 indomethacin 50 mg capsule 50 mg PO TID PRN pain #14 caps 10/19/23 tramadol 50 mg tablet 50 mg PO Q6H PRN pain #12 tabs 10/19/23 Allergies Allergy/AdvReac Type Severity Reaction Status Date / Time penicillin V Allergy Unknown Nausea and Verified 10/19/23 05:29 Vomiting Penicillins [PENICILLINS] Allergy Unknown NAUSEA/VOMI Verified 10/19/23 05:29 TING MUSCLE RELAXER Allergy Unknown FOAMING AT Uncoded 10/19/23 05:29 THE MOUTH - CANNOT REMEMBER NAME OF DRUG Review of Systems Review of Systems: Yes all other systems are reviewed and are negative [facility] Past Medical History Medical History Skin lesion Bilateral impacted cerumen Upper respiratory tract infection Acquired syphilis Screening for STD (sexually transmitted disease) Polyuria Penile discharge Lichenification Laboratory examination ordered as part of a routine general medical examination Tinea barbae Folliculitis GERD (gastroesophageal reflux disease) ETOH abuse Depression Anxiety Surgical History No pertinent past surgical history Family History Family History Other Mental health disorder Substance abuse Social History Social History Housing: Apartment Alcohol intake: current Alcohol intake frequency: 3 or more drinks per day Alcohol type: beer and hard liquor Patient Tobacco Use Status: Former Tobacco user Cigarette Packs Per Day: 1 Years Smoked: 20 e-Cigarette/Vaping Use: Never Used Advance Directives: No Advance Directives Information Provided: Yes Do you have a plan to hurt others: No Plan service: No Current occupational status: unemployed Current occupational exposures/hazards: No Cognitive needs: No Hearing needs: No Vision needs: No Physical Exam ED Vital Signs: Vital Signs - 24 hr 10/19/23 05:26 10/19/23 09:00 10/19/23 09:46 Temperature 96.5 F L 97.8 F 97.8 F Pulse Rate 70 65 65 Respiratory Rate 16 16 16 Blood Pressure 134/84 127/83 127/83 Pulse Oximetry 100 98 98 Oxygen Delivery Method Room Air Room Air BMI result Body Mass Index 22.8 Const Other: The patient is a thin 53-year-old male was awake and alert. He does not seem short of breath or in obvious discomfort. HENMT Other: Face is symmetrical. Mucous membranes moist. Eyes Other: Pupils are round equal, conjunctivae are clear, extraocular movements intact. Neck Other: Neck is supple. No adenopathy. Resp Effort & Inspection: normal respiratory effort Auscultation: clear to auscultation bilaterally Cardio Rate: regular rate Rhythm: regular rhythm Heart sounds: S1 normal heart sound present and S2 normal heart sound present Skin Other: Skin of the left arm is not obviously swollen or red in any way. I do not appreciate any definite swelling or any other skin abnormality. Neuro Other: The patient is awake and alert. Eye movements are intact. Pupils are round equal. Face is symmetrical. Speech is clear. Seems to have pain with moving his left hand but he does not seem to have any weakness which is not related to pain. He moves his extremities symmetrically otherwise. Extrem Other: The patient is holding his left hand and wrist in his somewhat contracted position. Despite this I am able to manipulate the elbow, wrist, and the fingers without obvious severe discomfort. He has tenderness throughout the wrist in the forearm generally. No definite deformity or erythema edema or swelling. Medications Administered Discontinued Medications Generic Name Dose Route Start Last Admin Trade Name Freq PRN Reason Stop Dose Admin Diphenhydramine HCl 25 mg 10/19/23 07:21 10/19/23 08:01 Diphenhydramine Hcl 50 Mg/Ml Vial IVPUSH 10/19/23 07:22 Not Given ONCE ONE Ketorolac Tromethamine 10 mg 10/19/23 07:21 10/19/23 08:04 Ketorolac Tromethamine 15 Mg/Ml Vial IVPUSH 10/19/23 07:22 Not Given ONCE ONE Metoclopramide HCl 10 mg 10/19/23 07:21 10/19/23 08:04 Metoclopramide Hcl 10 Mg/2 Ml Vial IVPUSH 10/19/23 07:22 Not Given ONCE ONE Medical Decision Making Medical Decision Making MDM Narrative: The patient is a 53-year-old male who was here for evaluation of left arm pain. He seems to have pain in his left forearm and left wrist. We did an x-ray of the left wrist that I thought was unremarkable but there are technical issues with our radiology transmission and reading today so I did not have an official reading in a timely fashion. I do not think the patient needs to be detained in the emergency room awaiting a formal reading of his x-ray. On my exam I do not think he has any evidence of a septic joint. The patient seemed to insist that the problem was arthritis. I do not really feel his physical exam or his x-ray is consistent with a diagnosis of arthritis. He says he has been drinking more than usual because of the pain. I suspect he drinks a fair amount. I suspect he is probably sprained his arm. I do not have a good other etiology for his pain. Labs were done that show a normal CRP and a minimally elevated ESR. He does not have an elevated white count. My overall impression is that there is no acutely dangerous process at work and that he can follow up with his PCP. He will be provided with a splint for comfort. I have prescribed indomethacin and tramadol. Lab Data 10/19/23 07:38 10/19/23 07:38 Labs: Lab Results 10/19/23 Range/Units 07:38 WBC 2.6 L (4.8-10.8) X10*3/uL RBC 4.38 L (4.60-5.80) X10*6/uL Hgb 13.4 L (14.0-18.0) g/dl Hct 38.7 L (42.0-52.0) % MCV 88.4 (80.0-98.0) fL MCH 30.6 (27.0-33.0) pg MCHC 34.6 (31.0-36.0) g/dl RDW 13.2 (11.0-16.0) % Plt Count 318 (160-400) X10*3/uL MPV 8.8 L (9.4-12.4) fL Immature Gran % (Auto) 0.4 (0.0-0.4) % Neut % (Auto) 25.4 L (45-73) % Lymph % (Auto) 39.2 (20-40) % [place] % (Auto) 29.3 H (2-11) % Eos % (Auto) 4.6 H (0-4) % Baso % (Auto) 1.1 (0-2) % Lymph # (Auto) 1.0 L (1.2-4.9) X10*3/uL [place] # (Auto) 0.8 (0.1-1.2) X10*3/uL Eos # (Auto) 0.1 (0.0-0.4) X10*3/uL Baso # (Auto) 0.0 (0.0-0.2) X10*3/uL Abs Immat Gran (auto) 0.01 (0.00-0.03) X10*3/uL Absolute Neuts (auto) 0.7 L (2.0-8.3) x10*3/uL Absolute Nucleated RBC 0.000 (0.0-0.012) X10*3/uL Nucleated RBC % (auto) 0.0 (0.0-0.2) /100WBC Smear Tech's Comments VERIFIED ESR 23 H (0-15) MM/HR Sodium 142 (135-145) mmol/L Potassium 4.3 (3.3-5.1) mmol/L Chloride 107 (96-108) mmol/L Carbon Dioxide 25 (22-29) mmol/L Anion Gap 14 (12-20) BUN 10 (9-16) mg/dL Creatinine 0.83 (0.5-1.4) mg/dL Estim Creat Clear Calc 99.7 Estimated GFR > 60 Random Glucose 85 (60-115) mg/dL Calcium 9.8 (8.4-10.2) mg/dL Magnesium 2.2 (1.6-2.6) mg/dL Total Bilirubin 0.4 (0.0-1.0) mg/dL Direct Bilirubin 0.1 (0.0-0.5) mg/dL AST 43 H (5-37) U/L ALT 36 (0-40) U/L Alkaline Phosphatase 107 (39-117) U/L Total Creatine Kinase 255 H (38-174) U/L C-Reactive Protein 0.19 (< or = 0.50) mg/dL Total Protein 7.9 (6.5-8.0) g/dL Albumin 4.2 (3.5-5.0) g/dL Ethyl Alcohol 76 mg/dL Discharge Plan Discharge Clinical Impression: Left wrist sprain Patient Disposition: Home, Self-Care Additional Instructions: Your testing in the emergency room today seems reassuring from the point of view of any acutely dangerous process. Please wear the splint for comfort. You may take 2 extra-strength acetaminophen (Tylenol) up to 3 times per day as needed for pain. I have sent a prescription for a pain medication called indomethacin which you may take up to 3 times a day as well as needed for pain. I have also sent a pain medication prescription called tramadol which you may take if necessary as well. Try to use this mostly at night. Please contact your regular doctor's office today to try to set up a prompt follow up appointment. Return to the emergency room if significantly worse. Prescriptions: New indomethacin 50 mg capsule 50 mg PO TID PRN (Reason: pain) Qty: 14 0RF Rx Instructions: administer with food or milk tramadol 50 mg tablet 50 mg PO Q6H PRN (Reason: pain) Qty: 12 0RF No Action albuterol sulfate 2.5 mg /3 mL (0.083 %) solution for nebulization 2.5 mg inhalation Q6H PRN (Reason: shortness of breath or wheezing) Qty: 180 0RF albuterol sulfate 90 mcg/actuation aerosol powdr breath activated 2 inh inhalation Q20M PRN (Reason: shortness of breath) Qty: 1 0RF albuterol sulfate 2.5 mg/0.5 mL solution for nebulization 2.5 mg inhalation Q20M Qty: 30 0RF Rx Instructions: for up to 3 doses naproxen 500 mg tablet 500 mg PO BID PRN (Reason: pain) Qty: 14 0RF mupirocin 2 % ointment 1 appl topical BID PRN (Reason: axilla bumps) Qty: 22 0RF clonidine HCl 0.2 mg tablet 0.2 mg PO BEDTIME Qty: 30 0RF folic acid 1 mg tablet 1 mg PO DAILY Qty: 30 0RF thiamine HCl (vitamin B1) 250 mg tablet 250 mg PO DAILY Qty: 30 0RF omeprazole 20 mg capsule,delayed release(DR/EC) 20 mg PO DAILY 30 Days Qty: 30 0RF prednisone 20 mg tablet 20 mg PO BID 5 Days Qty: 10 0RF hydroxyzine HCl 25 mg tablet 25 mg PO BEDTIME Qty: 7 0RF albuterol sulfate 90 mcg/actuation HFA aerosol inhaler 1 puff inhalation TID PRN (Reason: shortness of breath or wheezing) Qty: 6.7 0RF fluticasone propionate 110 mcg/actuation HFA aerosol inhaler 1 puff PO BID Qty: 12 0RF Referrals: Louis Vazquez MD [Primary Care Provider] - (left arm pain) Interventions: ED Discharge Assessment Last Done: 10/19/23 09:46 Discharge Date/Time: 10/19/23 09:46 Print Language: Romanian
--- NOTE | 2023-10-19 07:19 | ECG_ITS ---
Test Reason : Weakness Blood Pressure : / mmHG Vent. Rate : 069 BPM Atrial Rate : 069 BPM P-R Int : 144 ms QRS Dur : 090 ms QT Int : 406 ms P-R-T Axes : 066 070 051 degrees QTc Int : 435 ms Normal sinus rhythm Normal ECG When compared with ECG of 04-NOV-2021 21:27, No significant change was found Referred By: Russell Hogan Electronically Signed By:JOHANNA CRESPO
[2023-10-19 07:46] LABS: Basophils Percent Auto 1.1 % (0-2); Eosinophils Absolute Auto 0.1 X10*3/uL (0.0-0.4); Eosinophils Percent Auto 4.6 % (0-4); Hematocrit 38.7 % (42.0-52.0); Hemoglobin 13.4 g/dl (14.0-18.0); Imm Gran Abs Auto 0.01 X10*3/uL (0.00-0.03); Imm Gran Pct Auto 0.4 % (0.0-0.4); Lymphocytes Percent Auto 39.2 % (20-40); MANUAL DIFF FLAG SCAN; Mean Corpuscular HGB Conc 34.6 g/dl (31.0-36.0); Mean Corpuscular Hemoglobin 30.6 pg (27.0-33.0); Mean Corpuscular Volume 88.4 fL (80.0-98.0); Mean Platelet Volume 8.8 fL (9.4-12.4); Monocytes Absolute Auto 0.8 X10*3/uL (0.1-1.2); Monocytes Percent Auto 29.3 % (2-11); Neutrophils Absolute Auto 0.7 x10*3/uL (2.0-8.3); Neutrophils Percent Auto 25.4 % (45-73); Platelet Count 318 X10*3/uL (160-400); Red Blood Count 4.38 X10*6/uL (4.60-5.80); Red Cell Distribution Width 13.2 % (11.0-16.0); SCAN SMEAR FLAG 1; White Blood Count 2.6 X10*3/uL (4.8-10.8)
--- NOTE | 2023-10-19 07:57 | PC.NURSE ---
Pt refusing IV for medications, doesn't like needles. Pt wondering if meds could be ordered PO. MD Hogan made aware.
[2023-10-19 08:03] LABS: SLIDE REVIEW VERIFIED
[2023-10-19 08:09] LABS: Alanine Aminotransferase 36 U/L (0-40); Albumin Level 4.2 g/dL (3.5-5.0); Alkaline Phosphatase 107 U/L (39-117); Anion Gap 14 (12-20); Aspartate Amino Transferase 43 U/L (5-37); Bilirubin Direct 0.1 mg/dL (0.0-0.5); Bilirubin Total 0.4 mg/dL (0.0-1.0); Blood Urea Nitrogen 10 mg/dL (9-16); C Reactive Protein 0.19 mg/dL (< or = 0.50); Calcium 9.8 mg/dL (8.4-10.2); Carbon Dioxide 25 mmol/L (22-29); Chloride 107 mmol/L (96-108); Creatinine Clr Calc Pharmacy 99.7; Estimated Glomerular Filt Rate > 60; Ethanol 76 mg/dL; Glucose Random 85 mg/dL (60-115); Magnesium 2.2 mg/dL (1.6-2.6); Potassium 4.3 mmol/L (3.3-5.1); Sodium 142 mmol/L (135-145); Total Protein 7.9 g/dL (6.5-8.0)
[2023-10-19 08:25] LABS: Erythrocyte Sedimentation Rate 23 MM/HR (0-15)
[2023-10-19 09:00] VITALS: BP 127/83; PULSE 65; RESP 16; TEMP 36.6; O2SAT 98
[2023-10-19 09:46] VITALS: BP 127/83; PULSE 65; RESP 16; TEMP 36.6; O2SAT 98
[2023-10-19 10:49] LABS: Uric Acid 9.4 mg/dL (3.4-7.0)
== END 2023-10-19 09:46 | disposition home or self-care (01) ==
PROVIDERS: Emergency Provider Emergency Medicine; PCP Family Medicine
DX: S63.502A Unspecified sprain of left wrist, initial encounter (principal); M25.532 Pain in left wrist; G89.29 Other chronic pain; R51.9 Headache, unspecified; R53.1 Weakness; X58.XXXA Exposure to other specified factors, initial encounter; Y93.9 Activity, unspecified; Y92.9 Unspecified place or not applicable; Y99.8 Other external cause status; Z79.899 Other long term (current) drug therapy; Z87.891 Personal history of nicotine dependence
CPT/HCPCS: 36415; 73110; 73130; 80048; 80076; 80307; 82550; 83735; 84550; 85025; 85652; 86140; 93005; 99284

== ENCOUNTER → 2023-10-19 07:19 | Outpatient (BNV) | payer MEDICARE, MEDICAID, SELFPAY | PROVIDERS: Emergency Provider Emergency Medicine; PCP Family Medicine; Visit Provider Internal Medicine | DX: R53.1 Weakness (principal) | CPT/HCPCS: 93010 ==

== ENCOUNTER 2023-10-20 | Outpatient (REF) | payer MEDICARE, MEDICAID, SELFPAY ==
[2023-10-21 12:16] LABS: CT PCR NOT DETECTED (Not Detect.); NG PCR NOT DETECTED (Not Detect.)
== END 2023-10-20 00:01 | disposition home or self-care (01) ==
LOC: HO.LNP
PROVIDERS: Visit Provider Physician Assistant
DX: Z20.2 Contact with and (suspected) exposure to infections with a predominantly sexual mode of transmission (principal)
CPT/HCPCS: 0353U

== ENCOUNTER 2023-10-20 15:45 | Outpatient (AMB) | payer MEDICARE, MEDICAID, SELFPAY ==
[2023-10-20 15:47] VITALS: BP 128/84; PULSE 116; O2SAT 97; BMI 22.7
--- NOTE | 2023-10-20 15:47 | MHC.OFFWIV ---
Intake Vital Signs 10/20/23 15:47 Height 5 ft 9 in Weight 154 lb BMI 22.7 BP 128/84 Blood Pressure Location Rt brachial Position Sitting Pulse 116 H Pulse Source Pulse Oximeter Pulse Oximetry (%) 97 Oxygen Delivery Method Room Air Intake Visit Reasons: EP STD test Intake Note: Pt here for STD test Patient Tobacco Use Status: Former Tobacco user Allergies penicillin V Allergy (Unknown, Verified 10/20/23 15:47) Nausea and Vomiting Penicillins [PENICILLINS] Allergy (Unknown, Verified 10/20/23 15:47) NAUSEA/VOMITING MUSCLE RELAXER Allergy (Unknown, Uncoded 10/20/23 15:47) FOAMING AT THE MOUTH - CANNOT REMEMBER NAME OF DRUG Do you need a note to return to daycare/school/sports/work: No HPI HPI Comments History of Present Illness Details Patient presents to office for STI testing He said he has no known exposure Wants to be tested No symptoms No pain, 0/10 PFSH Medical History Skin lesion Bilateral impacted cerumen Upper respiratory tract infection Acquired syphilis Screening for STD (sexually transmitted disease) Polyuria Penile discharge Lichenification Laboratory examination ordered as part of a routine general medical examination Tinea barbae Folliculitis GERD (gastroesophageal reflux disease) ETOH abuse Depression Anxiety Surgical History No pertinent past surgical history Family History Other Mental health disorder Substance abuse Social History Housing: Apartment Alcohol intake: current Alcohol intake frequency: 3 or more drinks per day Alcohol type: beer and hard liquor Patient Tobacco Use Status: Former Tobacco user Cigarette Packs Per Day: 1 Years Smoked: 20 e-Cigarette/Vaping Use: Never Used service: No Current occupational status: unemployed Current occupational exposures/hazards: No Cognitive needs: No Hearing needs: No Vision needs: No Review of Systems Const Denies chills and Denies fever(s) GI Denies abdominal pain and Denies vomiting Denies difficulty urinating, Denies penile discharge, Denies urinary frequency and Denies urinary hesitancy Musc Denies back pain Physical Exam Vital Signs: Last Vital Signs Pulse 116 H 10/20/23 15:47 BP 128/84 10/20/23 15:47 Pulse Ox 97 10/20/23 15:47 Oxygen Delivery Method Room Air 10/20/23 15:47 BMI result Body Mass Index 22.7 General: Non-toxic, NAD. Speaking full sentences. Skin: Warm dry throughout Eye: EOMI Respiratory: CTA bilaterally. No wheezes, rales or rhonchi Cardiac: RRR. No murmur Abdominal: No CVAT Neurology: A/O. No aphasia or facial droop. Gait without abnormality Psych: Good mood and affect Assessment & Plan Assessment & Plan (1) Sexually transmitted disease exposure: Code(s): Z20.2 - Contact with and (suspected) exposure to infections with a predominantly sexual mode of transmission Plan: Patient seen and evaluated. GC an chlamydia ordered HIV and RPR ordered Patient gave verbal understanding and had no additional questions or concerns at time of discharge All questions answered Orders: Orders HIV Ab/Ag Today Z20.2 - Contact with and (suspected) exposure to infections with a predominantly sexual mode of transmission CT NG by PCR Today Z20.2 - Contact with and (suspected) exposure to infections with a predominantly sexual mode of transmission RPR Monitor reflex titer Today Z20.2 - Contact with and (suspected) exposure to infections with a predominantly sexual mode of transmission Coding Level of Care Code Est Pt Level 3 (63352) Diagnoses Sexually transmitted disease exposure Z20.2
== END 2023-10-20 16:30 | disposition home or self-care (01) ==
PROVIDERS: PCP Family Medicine; Visit Provider Physician Assistant
DX: Z20.2 Contact with and (suspected) exposure to infections with a predominantly sexual mode of transmission (principal)
CPT/HCPCS: 99213

== ENCOUNTER 2023-10-21 14:30 | Outpatient (REF) | payer MEDICARE, MEDICAID, SELFPAY ==
[2023-10-22 08:03] LABS: HIV AB/AG Nonreactive (Nonreactive); HIV Num 1 0.05 S/CO (0.00-0.99)
[2023-10-22 15:48] LABS: RPR Rapid Plasma Reagin NON-REACTIVE (NON-REACTIVE)
== END 2023-10-21 14:31 | disposition home or self-care (01) ==
LOC: HO.HMGCLDS 14:30
PROVIDERS: PCP Family Medicine; Visit Provider Physician Assistant
DX: Z20.2 Contact with and (suspected) exposure to infections with a predominantly sexual mode of transmission (principal)
CPT/HCPCS: 36415; 86592; 87389

== ENCOUNTER 2024-02-07 13:52 | Outpatient (AMB) | payer MEDICARE, MEDICAID, SELFPAY ==
--- NOTE | 2024-02-07 14:03 | MHC.OFFWIV ---
Intake Vital Signs 02/07/24 14:06 Height 5 ft 9 in Weight 159 lb BMI 23.5 BP 120/80 Blood Pressure Location Rt brachial Position Sitting Pulse 94 Pulse Source Pulse Oximeter Pulse Oximetry (%) 97 Intake Visit Reasons: EP STD check? headaches-Car ([phone]) Intake Note: Patient is here today for sick visit for STD check and headaches ongoing for a while. Patient Tobacco Use Status: Former Tobacco user Straddle Buggy Operator Required: No Outsole Caser: Not Required per policy Accompanied by: Self / Same As Patient Allergies penicillin V Allergy (Unknown, Verified 02/07/24 14:04) Nausea and Vomiting Penicillins [PENICILLINS] Allergy (Unknown, Verified 02/07/24 14:04) NAUSEA/VOMITING MUSCLE RELAXER Allergy (Unknown, Uncoded 02/07/24 14:04) FOAMING AT THE MOUTH - CANNOT REMEMBER NAME OF DRUG Do you need a note to return to daycare/school/sports/work: No HPI EP STD check? headaches-Car ([phone]) HPI Details This note is constructed using voice recognition software. While every effort has been made to ensure accuracy, civil laboratory technician errors may have been included. The patient is a 53 year old male who presents to the clinic today with daily headache for the past 3 days in setting of chronic headaches as well as request for STI testing. He reports that he is sexually active, using condoms, however they do occasionally break. He is sexually active outside of his marriage and does not know who he may have been exposed to. He reports that he drinks a large amount of alcohol, and is intoxicated so he is not completely aware of his actions at the time. He also notes that he has been having the headaches posterior head, these have been chronic since he was a child after having a concussion. The last 3 days they have been nearly constant, he takes ibuprofen with some relief, however it does not completely resolve it. He denies fever, chills, dizziness, lightheadedness, new trauma, confusion. [facility] Medical History Skin lesion Bilateral impacted cerumen Upper respiratory tract infection Acquired syphilis Screening for STD (sexually transmitted disease) Polyuria Penile discharge Lichenification Laboratory examination ordered as part of a routine general medical examination Tinea barbae Folliculitis GERD (gastroesophageal reflux disease) ETOH abuse Depression Anxiety Surgical History No pertinent past surgical history Family History Other Mental health disorder Substance abuse Social History Housing: Apartment Alcohol intake: current Alcohol intake frequency: 3 or more drinks per day Alcohol type: beer and hard liquor Patient Tobacco Use Status: Former Tobacco user Cigarette Packs Per Day: 1 Years Smoked: 20 e-Cigarette/Vaping Use: Never Used service: No Current occupational status: unemployed Current occupational exposures/hazards: No Cognitive needs: No Hearing needs: No Vision needs: No Review of Systems Const All systems reviewed & are unremarkable except as noted in HPI and below Physical Exam Vital Signs: Last Vital Signs Pulse 94 02/07/24 14:06 BP 120/80 02/07/24 14:06 Pulse Ox 97 02/07/24 14:06 BMI result Body Mass Index 23.5 Const General: cooperative, healthy appearing, comfortable, no acute distress and alert Orientation/consciousness: patient oriented x3 Limitations: no limitations HEENT Head: Yes normal to inspection and Yes normocephalic Ears: hearing grossly normal bilaterally General nose exam: Normal external nose present Face and sinus: Yes normal facial exam and Yes sinuses nontender Mouth: Normal oral and palatal mucosa present and tongue normal Teeth and gingiva: dentition normal Throat: Yes posterior oropharynx normal Eyes General: appearance normal, both eyes and all related structures Neck Neck: Yes normal visual inspection, Yes full ROM and Yes no lymphadenopathy Resp Effort & Inspection: normal respiratory effort and able to speak in complete sentences Auscultation: clear to auscultation bilaterally Cardio Jugular venous distension: no JVD Palpation: normal PMI Rate: regular rate Heart sounds: S1 normal heart sound present, S2 normal heart sound present, no click, no gallops, no murmurs and no rubs Skin General skin exam: no rashes or lesions noted, elasticity normal and turgor normal Neuro General: patient oriented x3 Psych Appearance: grossly normal Mental Status: mental status grossly normal Speech and movement: Normal speech and movement present Affect: normal affect Assessment & Plan Assessment & Plan (1) Sexually transmitted disease exposure: Code(s): Z20.2 - Contact with and (suspected) exposure to infections with a predominantly sexual mode of transmission Plan: HIV, hepatitis, and syphilis testing ordered due to patient's concerns as well as chlamydia and gonorrhea. Advised use of condoms for all sexual encounters. (2) Headaches due to old head injury: Code(s): G44.309 - Post-traumatic headache, unspecified, not intractable; S09.90XS - Unspecified injury of head, sequela Plan: Reassuring physical examination today, we will try a prednisone burst for symptomatic management on anti-inflammatory effects. Advised patient to resume NSAIDs after completion of prednisone if needed. Advised patient to follow up with PCP with worsening or failure to resolve. Plan See above for full details and plan. Orders: Orders HIV Ab/Ag Today Z20.2 - Contact with and (suspected) exposure to infections with a predominantly sexual mode of transmission Syphilis Screen Today Z20.2 - Contact with and (suspected) exposure to infections with a predominantly sexual mode of transmission Hepatitis C Antibody Reflex Today Z20.2 - Contact with and (suspected) exposure to infections with a predominantly sexual mode of transmission CT NG by PCR Today Z20.2 - Contact with and (suspected) exposure to infections with a predominantly sexual mode of transmission Medications: New prednisone 40 mg (2 x 20 mg) PO DAILY 3 days 6 tabs 0RF Coding Level of Care Code Est Pt Level 3 (20050) Diagnoses Sexually transmitted disease exposure Z20.2 Headaches due to old head injury G44.309; S09.90XS
[2024-02-07 14:06] VITALS: BP 120/80; PULSE 94; O2SAT 97; BMI 23.5
== END 2024-02-07 14:49 | disposition home or self-care (01) ==
PROVIDERS: PCP Family Medicine; Visit Provider Registered Nurse
DX: Z20.2 Contact with and (suspected) exposure to infections with a predominantly sexual mode of transmission (principal); G44.309 Post-traumatic headache, unspecified, not intractable; S09.90XS Unspecified injury of head, sequela

== ENCOUNTER → 2024-02-07 13:52 | Outpatient (BNVA) | payer MEDICARE, MEDICAID, SELFPAY | PROVIDERS: PCP Family Medicine ==

== ENCOUNTER 2024-02-07 14:40 | Outpatient (REF) | payer MEDICARE, MEDICAID, SELFPAY ==
[2024-02-08 04:43] LABS: CT PCR NOT DETECTED (Not Detect.); NG PCR NOT DETECTED (Not Detect.)
[2024-02-08 08:35] LABS: HIV AB/AG Nonreactive (Nonreactive); HIV Num 1 0.04 S/CO (0.00-0.99); ~HepC Num1 0.08 S/CO (0.00-0.79); ~Hepatitis C Antibody Nonreactive (Nonreactive)
[2024-02-08 08:55] LABS: Syphilis Screen Reactive (Nonreactive)
[2024-02-11 16:04] LABS: RPR Quantitative Non-Reactive (Nonreactive); T.Pallidum Particle Agg Test Reactive (Nonreactive)
== END 2024-02-07 14:41 | disposition home or self-care (01) ==
LOC: HO.HMGCLDS 14:40
PROVIDERS: PCP Family Medicine; Visit Provider Registered Nurse
DX: G44.309 Post-traumatic headache, unspecified, not intractable (principal); Z20.2 Contact with and (suspected) exposure to infections with a predominantly sexual mode of transmission; S09.90XS Unspecified injury of head, sequela
CPT/HCPCS: 36415; 86592; 86780; 86803; 87389; 87491; 87591; 99212

== ENCOUNTER 2024-02-10 11:12 | Emergency (ER) | payer MEDICARE, MEDICAID, SELFPAY ==
--- NOTE | ~2024-02-10 | CT_ITS ---
EXAM: CT HEAD WITHOUT CONTRAST CT CERVICAL SPINE INDICATION: left sided head neck pain,LUE weakness TECHNIQUE: A noncontrast CT scan was performed from the skull base to the vertex. A noncontrast CT scan of the cervical spine was performed from the base of the skull through T1 at 2.5 mm and 0.625 mm collimation. Coronal and sagittal reformats were obtained at the acquisition workstation. This CT examination was performed using dose optimization techniques as appropriate, variously including the following: * Automated exposure control * Adjustment of mA and/or kV according to patient size (this includes techniques or standardized protocols for targeted exams where dose is matched to indication/reason for exam; i.e. extremities or head) * Use of iterative reconstruction technique Dose length product is 1093 mGy-cm. COMPARISON: None FINDINGS: Head: There is no evidence of acute intracranial hemorrhage or edematous territorial infarction. No abnormal mass effect or midline shift is seen. Moran to white matter differentiation is well preserved. No abnormal extra-axial fluid collections are identified. The ventricles are normal in size. There is prominent bilateral basal ganglia mineralization.. No acute calvarial fracture.. Left maxillary sinus mucosal thickening. Remainder of the paranasal sinuses and mastoid air cells are well-aerated. Cervical Spine: The atlantooccipital and atlantoaxial articulations are maintained.. Straightening of the normal cervical lordosis. Otherwise, there is anatomic alignment of the vertebral bodies and posterior elements. No evidence of acute fracture or subluxation. Vertebral body heights are maintained.. Multilevel mild disc degenerative changes. Multilevel uncovertebral degenerative changes. The central bony canal is grossly maintained. Mild narrowing of the right C5-6, C6-7 neural foramen.. No prevertebral soft tissue swelling. No suspicious thyroid findings. Emphysema in bilateral lung apices. CT/CT cervical spine wo IV con IMPRESSION: CT head: 1. No CT evidence of acute intracranial hemorrhage or edematous territorial infarction. 2. Prominent bilateral basal ganglia mineralization. 3. Etiology of the patient's symptoms has not been determined. Consider further evaluation with CTA or MRI as clinically indicated. 4. Left maxillary sinus disease. Cervical spine: 1. No CT evidence of acute cervical spine fracture or malalignment. 2. Mild cervical spondylosis. 3. Consider further evaluation with MRI cervical spine as clinically indicated. Electronically signed by: Rashaad Hernandes MD 02/10/2024 01:35 PM EDT
[2024-02-10 11:15] VITALS: BP 119/78; PULSE 94; RESP 16; TEMP 36.4; O2SAT 98; BMI 21.9
--- NOTE | 2024-02-10 11:17 | ED_ITS ---
HPI - Headache General Chief Complaint: General Medical Stated Complaint: l side head/l shoulder pain Time Seen by Provider: 02/10/24 18:16 Source: patient Mode of arrival: ambulatory Limitations: no limitations History of Present Illness ED Provider: Mike BLANCA Narrative: Patient is a 53-year-old male with history of COPD, alcohol use disorder, substance use disorder presenting to the emergency department with complaint of headache and left-sided neck pain for the past week. Has taken ibuprofen with little relief. Also started on steroids. Denies dizziness or lightheadedness. Denies blurred vision, double vision or other visual changes. States that he feels the area to his left posterior head swollen. Denies fevers. Denies fall or other recent trauma. Denies any weakness, numbness, or tingling to extremities. Denies chest pain, palpitations, dyspnea. Denies any nausea or vomiting. Denies worst headache of life. MD elicited complaint: headache Onset (ago): week(s) Onset description: gradually Location: left and occipital Severity: moderate Quality & Timing: aching Exacerbating factors: movement of head/neck Treatments prior to arrival: ibuprofen and other Related Data Previous Rx's ?Medication ?Instructions ?Recorded naproxen 500 mg tablet 500 mg PO BID PRN pain #14 tabs 12/31/22 mupirocin 2 % topical ointment 1 appl topical BID PRN axilla 05/07/23 bumps #22 grams fluticasone propionate 110 1 puff PO BID #12 grams 07/15/23 mcg/actuation HFA aerosol inhaler clonidine HCl 0.2 mg tablet 0.2 mg PO BEDTIME #30 tabs 07/19/23 folic acid 1 mg tablet 1 mg PO DAILY #30 tabs 07/19/23 omeprazole 20 mg capsule,delayed 20 mg PO DAILY 30 days #30 caps 07/19/23 release thiamine HCl (vitamin B1) 250 mg 250 mg PO DAILY #30 tabs 07/19/23 tablet albuterol sulfate 2.5 mg/3 mL 2.5 mg (3 mL) inhalation Q6H PRN 08/02/23 (0.083 %) solution for nebulization shortness of breath or wheezing #180 mL albuterol sulfate 2.5 mg/0.5 mL 2.5 mg (0.5 mL) inhalation Q20M 08/28/23 solution for nebulization #30 ea albuterol sulfate 90 mcg/actuation 2 inh inhalation Q20M PRN 08/28/23 breath activated powder inhaler shortness of breath #1 ea albuterol sulfate 90 mcg/actuation 1 puff inhalation TID PRN 09/24/23 aerosol inhaler shortness of breath or wheezing #6.7 grams hydroxyzine HCl 25 mg tablet 25 mg PO BEDTIME #7 tabs 09/24/23 prednisone 20 mg tablet 20 mg PO BID 5 days #10 tabs 09/24/23 indomethacin 50 mg capsule 50 mg PO TID PRN pain #14 caps 10/19/23 tramadol 50 mg tablet 50 mg PO Q6H PRN pain #12 tabs 10/19/23 prednisone 20 mg tablet 40 mg (2 x 20 mg) PO DAILY 3 days 02/07/24 #6 tabs cyclobenzaprine 10 mg tablet 10 mg PO TID PRN muscle spasm #10 02/10/24 tabs lidocaine 5 % topical patch 1 patch topical DAILY #15 ea 02/10/24 prednisone 20 mg tablet 40 mg (2 x 20 mg) PO DAILY #10 tabs 02/10/24 Allergies Allergy/AdvReac Type Severity Reaction Status Date / Time penicillin V Allergy Unknown Nausea and Verified 02/10/24 11:20 Vomiting Penicillins [PENICILLINS] Allergy Unknown NAUSEA/VOMI Verified 02/10/24 11:20 TING MUSCLE RELAXER Allergy Unknown FOAMING AT Uncoded 02/07/24 14:04 THE MOUTH - CANNOT REMEMBER NAME OF DRUG Review of Systems 2 Review of Systems: As per hPI Yes all other systems are reviewed and are negative Constitutional: Constitutional: Reports as per HPI PMFSH Past Medical History Medical History Skin lesion Bilateral impacted cerumen Upper respiratory tract infection Acquired syphilis Screening for STD (sexually transmitted disease) Polyuria Penile discharge Lichenification Laboratory examination ordered as part of a routine general medical examination Tinea barbae Folliculitis GERD (gastroesophageal reflux disease) ETOH abuse Depression Anxiety Surgical History No pertinent past surgical history Family History Family History Other Mental health disorder Substance abuse Social History Social History Housing: Apartment Alcohol intake: current Alcohol intake frequency: 3 or more drinks per day Alcohol type: beer and hard liquor Patient Tobacco Use Status: Former Tobacco user Cigarette Packs Per Day: 1 Years Smoked: 20 Smoked in Last 30 Days: No e-Cigarette/Vaping Use: Never Used Use of substances other than those prescribed or required for medical reasons: No Do you have a plan to hurt others: No Plan service: No Current occupational status: unemployed Current occupational exposures/hazards: No Cognitive needs: No Hearing needs: No Vision needs: No Physical Exam 2 Vital Signs: Vital Signs: Last Vital Signs Temp 98.2 F 02/10/24 18:16 Pulse 79 02/10/24 18:16 Resp 16 02/10/24 18:16 BP 128/85 02/10/24 18:16 Pulse Ox 97 02/10/24 18:16 O2 Del Method Room Air 02/10/24 18:16 BMI result Body Mass Index 21.9 Vital signs have been reviewed and appear to be correct. Blood pressure normal. Heart rate normal. Respiratory rate normal. Temperature normal. Oxygen saturation normal. Const: General: cooperative, healthy appearing and no acute distress O rientation/consciousness: oriented to person, oriented to place, oriented to time and patient oriented x3 Limitations: no limitations HEENT: Other: No swelling noted to occipital area on exam. Head: Yes normal to inspection, Yes normocephalic, Yes atraumatic and Yes scalp tenderness (left occipital area) Ears: hearing grossly normal bilaterally and external ears normal General nose exam: Normal external nose present Face and sinus: Yes face symmetric Mouth: oropharynx normal and moist mucous membranes Throat: Yes uvula midline Eyes: Pupils: Equal, round and reactive pupils present Neck: Neck: Yes normal visual inspection, Yes full ROM, Yes no lymphadenopathy, Yes no meningeal signs, Yes trachea midline and Yes supple Resp: Effort & Inspection: normal respiratory effort and able to speak in complete sentences Auscultation: clear to auscultation bilaterally Cardio: Rate: regular rate Rhythm: regular rhythm Heart sounds: S1 normal heart sound present and S2 normal heart sound present GI: Palpation (GI): Soft to palpation and nontender Auscultation: n ormoactive bowel sounds : General: Yes no CVA tenderness Back/Spine/Pelvis: Back: no CVA tenderness Cervical Spine: cervical ROM normal, cervical muscular tenderness (left lateral), No pain with cervical ROM, No Cervical spine tenderness and No step off deformity Skin: General skin exam: elasticity normal and turgor normal Neuro: General: oriented to person, oriented to place, oriented to time, patient oriented x3, gait normal, tone normal, moves all extremities, Normal light touch and pain sensation, no meningeal signs, no focal motor deficits, CN's II-XI intact bilaterally and deep tendon reflexes 2+ bilaterally Cranial nerves: Yes Equal, round and reactive pupils present Cognition (Neuro): n ormal cognition Motor exam (neuro): 5/5 motor strength present throughout, Pronator motor function not present, no tremor noted, Normal motor muscle tone present throughout and Motor abnormalities not present Extrem: General: Yes full ROM, Yes no pedal edema and Yes no calf tenderness Psych: Mental Status: mental status grossly normal Affect: normal affect Thought process: Normal thought process present Course Course Course Narrative: This is a Rapid Medical Examination (RME) performed by Yonatan Silva PA-C in triage. Full HPI, ROS, assessment and treatment plan per primary provider in the Main ED. 53 yo male presents to the ER for evaluation of left sided posterior headache, left sided neck pain and swelling for the last couple of weeks, recently seen at in [place] and started on steroids with no improvement. reports pain and weakness in LUE. neurologically intake without apprecaited weakness on exam. left posterior head with tenderness, no obvious swelling. Plan: labs, CT head/neck Medical Decision Making Medical Decision Making MDM Narrative: Patient is a 53-year-old male with history of COPD, alcohol use disorder, substance use disorder presenting to the emergency department with complaint of headache and left-sided neck pain for the past week. On exam patient is awake, A+Ox3, VS WNL, afebrile, normal neurological exam without focal deficits, physical exam findings as above. Given reported symptoms and physical exam findings, initial differential includes cervical strain, cervical radiculopathy, tension headache. No red flag findings concerning for ICH/SAH, acute glaucoma, carotid artery dissection, CO poisoning, encephalitis, meningitis, preeclampsia, pseudotumor, temporal arteritis/giant cell arteritis. Labs grossly within normal limits. CT head and c-spine notable for no evidence of ICH/infarction, fracture or subluxation. My interpretation is in agreement with the radiologist's interpretation. Patient updated on results. Feel symptoms are most consisent with cervical strain/tension headache. Will send prescriptions for Flexeril, lidocaine patches, extend course of prednisone. Instructed patient to follow up with PCP. Return precautions discussed at bedside. Patient verbalized understanding and agreement with plan. Differential Diagnosis Differential Diagnoses: The differential diagnosis associated with the presentation includes As per [facility]. Admission/Observation Consideration of admission/observation: Escalation of care including admission/observation considered Patient would have been admitted to the hospital had their work up had any findings where hospital admission was appropriate and their clinical presentation warranted hospital admission. Lab Data [facility] Lab Attestation statement: I reviewed the patient's lab results. As per [facility] 02/10/24 12:08 02/10/24 12:08 Labs: Lab Results 02/10/24 Range/Units 12:08 WBC 3.1 L (4.8-10.8) X10*3/uL RBC 4.29 L (4.60-5.80) X10*6/uL Hgb 13.0 L (14.0-18.0) g/dl Hct 38.4 L (42.0-52.0) % MCV 89.5 (80.0-98.0) fL MCH 30.3 (27.0-33.0) pg MCHC 33.9 (31.0-36.0) g/dl RDW 13.2 (11.0-16.0) % Plt Count 305 (160-400) X10*3/uL MPV 9.2 L (9.4-12.4) fL Immature Gran % (Auto) 0.6 H (0.0-0.4) % Neut % (Auto) 80.5 H (45-73) % Lymph % (Auto) 12.5 L (20-40) % Gentry % (Auto) 6.1 (2-11) % Eos % (Auto) 0.0 (0-4) % Baso % (Auto) 0.3 (0-2) % Lymph # (Auto) 0.4 L (1.2-4.9) X10*3/uL Gentry # (Auto) 0.2 (0.1-1.2) X10*3/uL Eos # (Auto) 0.0 (0.0-0.4) X10*3/uL Baso # (Auto) 0.0 (0.0-0.2) X10*3/uL Abs Immat Gran (auto) 0.02 (0.00-0.03) X10*3/uL Absolute Neuts (auto) 2.5 (2.0-8.3) x10*3/uL Absolute Nucleated RBC 0.000 (0.0-0.012) X10*3/uL Nucleated RBC % (auto) 0.0 (0.0-0.2) /100WBC ESR 12 (0-15) MM/HR Sodium 141 (135-145) mmol/L Potassium 4.0 (3.3-5.1) mmol/L Chloride 109 H (96-108) mmol/L Carbon Dioxide 24 (22-29) mmol/L Anion Gap 12 (12-20) BUN 14 (9-16) mg/dL Creatinine 0.77 (0.5-1.4) mg/dL Estim Creat Clear Calc 112.5 Estimated GFR > 60 Random Glucose 111 (60-115) mg/dL Calcium 9.6 (8.4-10.2) mg/dL Magnesium 1.9 (1.6-2.6) mg/dL Total Bilirubin 0.3 (0.0-1.0) mg/dL Direct Bilirubin 0.1 (0.0-0.5) mg/dL AST 25 (5-37) U/L ALT 22 (0-40) U/L Alkaline Phosphatase 93 (39-117) U/L C-Reactive Protein < 0.10 (< or = 0.50) mg/dL Total Protein 6.9 (6.5-8.0) g/dL Albumin 3.7 (3.5-5.0) g/dL Independent Interpretation I performed an independent interpretation of an: CT Scan Interpretation: T head and c-spine notable for no evidence of ICH/infarction, fracture or subluxation. Radiology Impression Discussion of test interpretation with radiology: I have reviewed the radiologist's reading. Radiologist Impression: CT/CT head/brain wo IV con IMPRESSION: CT head: 1. No CT evidence of acute intracranial hemorrhage or edematous territorial infarction. 2. Prominent bilateral basal ganglia mineralization. 3. Etiology of the patient's symptoms has not been determined. Consider further evaluation with CTA or MRI as clinically indicated. 4. Left maxillary sinus disease. Cervical spine: 1. No CT evidence of acute cervical spine fracture or malalignment. 2. Mild cervical spondylosis. 3. Consider further evaluation with MRI cervical spine as clinically indicated. External Record Review External record reviewed: Inpatient record, Office record and Outpatient record Prescription Management I considered prescription management with: Pain Medication and Other Discharge Plan Discharge Clinical Impression: Cervical strain, Headache Patient Disposition: Home, Self-Care Instructions: Cervical Strain (DC), Tension Headache (ED), Acute Headache (DC) Additional Instructions: You were evaluated in the emergency department with complaint of neck pain. Your imaging did not show any evidence of bleeding in your brain, or a fracture or other concerning findings. Your pain is likely related to a muscle strain. We recommend taking 600mg ibuprofen or 650mg Tylenol. If necessary, you can alternate these medications every three hours. For example, at noon take Tylenol, then at 3:00 take ibuprofen, then at 6:00 take Tylenol, etc. You are also being prescribed a muscle relaxer which you can use up to every 8 hours as needed. DO NOT TAKE THIS IN COMBINATION WITH TRAMADOL IT CAN CAUSE EXCESSIVE DROWSINESS. You are being prescribed a short course of steroids to decrease inflammation. You are being prescribed topical lidocaine patches which you can wear for up to 12 hours in a 24 hour period. Do not apply heat directly over the patches. You should follow up with your primary care provider as you may require physical therapy to improve your symptoms. Return to the emergency department if you develop worsening neck pain or stiffness, new weakness, numbness, or tingling to your arm, severe headaches, or any other concerning symptoms. Prescriptions: New cyclobenzaprine 10 mg tablet 10 mg PO TID PRN (Reason: muscle spasm) Qty: 10 0RF lidocaine 5 % adhesive patch,medicated 1 patch topical DAILY Qty: 15 0RF Rx Instructions: leave on most painful area for up to 12 hrs prednisone 20 mg tablet 40 mg PO DAILY Qty: 10 0RF No Action albuterol sulfate 2.5 mg /3 mL (0.083 %) solution for nebulization 2.5 mg inhalation Q6H PRN (Reason: shortness of breath or wheezing) Qty: 180 0RF indomethacin 50 mg capsule 50 mg PO TID PRN (Reason: pain) Qty: 14 0RF Rx Instructions: administer with food or milk tramadol 50 mg tablet 50 mg PO Q6H PRN (Reason: pain) Qty: 12 0RF albuterol sulfate 90 mcg/actuation aerosol powdr breath activated 2 inh inhalation Q20M PRN (Reason: shortness of breath) Qty: 1 0RF albuterol sulfate 2.5 mg/0.5 mL solution for nebulization 2.5 mg inhalation Q20M Qty: 30 0RF Rx Instructions: for up to 3 doses naproxen 500 mg tablet 500 mg PO BID PRN (Reason: pain) Qty: 14 0RF mupirocin 2 % ointment 1 appl topical BID PRN (Reason: axilla bumps) Qty: 22 0RF clonidine HCl 0.2 mg tablet 0.2 mg PO BEDTIME Qty: 30 0RF folic acid 1 mg tablet 1 mg PO DAILY Qty: 30 0RF thiamine HCl (vitamin B1) 250 mg tablet 250 mg PO DAILY Qty: 30 0RF omeprazole 20 mg capsule,delayed release(DR/EC) 20 mg PO DAILY 30 Days Qty: 30 0RF prednisone 20 mg tablet 20 mg PO BID 5 Days Qty: 10 0RF hydroxyzine HCl 25 mg tablet 25 mg PO BEDTIME Qty: 7 0RF albuterol sulfate 90 mcg/actuation HFA aerosol inhaler 1 puff inhalation TID PRN (Reason: shortness of breath or wheezing) Qty: 6.7 0RF fluticasone propionate 110 mcg/actuation HFA aerosol inhaler 1 puff PO BID Qty: 12 0RF prednisone 20 mg tablet 40 mg PO DAILY 3 Days Qty: 6 0RF Stand Alone Forms: Work/School Release Print Language: Emirati
[2024-02-10 12:12] LABS: MANUAL DIFF FLAG NO
[2024-02-10 12:15] LABS: Basophils Percent Auto 0.3 % (0-2); Hematocrit 38.4 % (42.0-52.0); Imm Gran Abs Auto 0.02 X10*3/uL (0.00-0.03); Imm Gran Pct Auto 0.6 % (0.0-0.4); Lymphocytes Absolute Auto 0.4 X10*3/uL (1.2-4.9); Lymphocytes Percent Auto 12.5 % (20-40); Mean Corpuscular HGB Conc 33.9 g/dl (31.0-36.0); Mean Corpuscular Hemoglobin 30.3 pg (27.0-33.0); Mean Corpuscular Volume 89.5 fL (80.0-98.0); Mean Platelet Volume 9.2 fL (9.4-12.4); Monocytes Absolute Auto 0.2 X10*3/uL (0.1-1.2); Monocytes Percent Auto 6.1 % (2-11); Neutrophils Absolute Auto 2.5 x10*3/uL (2.0-8.3); Neutrophils Percent Auto 80.5 % (45-73); Platelet Count 305 X10*3/uL (160-400); Red Blood Count 4.29 X10*6/uL (4.60-5.80); Red Cell Distribution Width 13.2 % (11.0-16.0); White Blood Count 3.1 X10*3/uL (4.8-10.8)
[2024-02-10 12:27] LABS: Alanine Aminotransferase 22 U/L (0-40); Albumin Level 3.7 g/dL (3.5-5.0); Alkaline Phosphatase 93 U/L (39-117); Anion Gap 12 (12-20); Aspartate Amino Transferase 25 U/L (5-37); Bilirubin Direct 0.1 mg/dL (0.0-0.5); Bilirubin Total 0.3 mg/dL (0.0-1.0); Blood Urea Nitrogen 14 mg/dL (9-16); C Reactive Protein < 0.10 mg/dL (< or = 0.50); Calcium 9.6 mg/dL (8.4-10.2); Carbon Dioxide 24 mmol/L (22-29); Chloride 109 mmol/L (96-108); Creatinine Clr Calc Pharmacy 112.5; Estimated Glomerular Filt Rate > 60; Glucose Random 111 mg/dL (60-115); Magnesium 1.9 mg/dL (1.6-2.6); Sodium 141 mmol/L (135-145); Total Protein 6.9 g/dL (6.5-8.0)
[2024-02-10 12:55] LABS: Erythrocyte Sedimentation Rate 12 MM/HR (0-15)
[2024-02-10 18:16] VITALS: BP 128/85; PULSE 79; RESP 16; TEMP 36.8; O2SAT 97
--- NOTE | 2024-02-10 18:20 | PC.NURSE ---
aox4. swelling to left side of neck, normal neck movement. pt reports pain in the area and headache pain. 12/17. has been taking steroids and ibuprofen with little relief
[2024-02-10 19:08] VITALS: BP 128/85; PULSE 79; RESP 16; TEMP 36.8; O2SAT 97
== END 2024-02-10 19:10 | disposition home or self-care (01) ==
LOC: HO.ED 19:06
PROVIDERS: Physician Assistant; Emergency Provider Emergency Medicine; PCP Family Medicine
DX: S16.1XXA Strain of muscle, fascia and tendon at neck level, initial encounter (principal); S49.92XA Unspecified injury of left shoulder and upper arm, initial encounter; M25.512 Pain in left shoulder; R51.9 Headache, unspecified; M54.2 Cervicalgia; X58.XXXA Exposure to other specified factors, initial encounter; Y93.89 Activity, other specified; Y92.89 Other specified places as the place of occurrence of the external cause; Y99.8 Other external cause status; Z79.899 Other long term (current) drug therapy
CPT/HCPCS: 36415; 70450; 72125; 80048; 80076; 83735; 85025; 85652; 86140; 99284

== ENCOUNTER 2024-02-21 12:49 | Outpatient (REF) | payer MEDICARE, MEDICAID, SELFPAY ==
[2024-02-23 10:37] LABS: RPR Rapid Plasma Reagin NON-REACTIVE (NON-REACTIVE)
== END 2024-02-21 12:50 | disposition home or self-care (01) ==
LOC: HO.HMGCLDS 12:49
PROVIDERS: PCP Family Medicine; Visit Provider Family Medicine
DX: Z20.2 Contact with and (suspected) exposure to infections with a predominantly sexual mode of transmission (principal)
CPT/HCPCS: 36415; 86592

== ENCOUNTER 2024-06-15 08:51 | Outpatient (AMB) | payer MEDICARE, MEDICAID, SELFPAY ==
--- OUTSIDE RECORDS SUMMARY | 2024-06-15 09:08 | XMS_ITS | Clinical Summary ---
Author Organization [facility] Address [address] [place] [address] Care Team Providers [employer] Salesperson Name Role Phone Unavailable Primary Care Provider Unavailabl e Source Comments PLEASE NOTE, if this patient is a minor, it may be UNLAWFUL to discuss sensitive information that is contained in these records (such as FAMILY PLANNING, MENTAL HEALTH or SUBSTANCE ABUSE) with the minor patient's parent or other person without the patient's specific authorization.[facility] Immunizations Name Administration Dates Next Due PFIZER COVID VACCINE, PURPLE CAP, 12+ 05/13/2021 Social History Tobacco Use Types Packs/Day Years Used Date Smoking Tobacco: Never Assessed Sex and Gender Information Value Date Recorded Sex Assigned at Not on file Legal Sex Male 7:42 AM PST Gender Identity Not on file Sexual Orientation Not on file Plan of Treatment Health Maintenance Due Date Last Done Comments Diabetes Screening 1968 Hepatitis C Screening 1968 Lipid Screening 1968 Tobacco Screening 1968 HIV Screening 1983 Hypertension Screening (#1) 1986 Medicare Annual Wellness Visit 1986 Imm-DTaP/Tdap/Td (1 - Tdap) 1987 Imm-Hepatitis B (1 of 3 - 19 + 3-dose series) 1987 CT Colonography 2013 Colonoscopy 2013 Colorectal Cancer Screening 2013 FIT/gFOBT 2013 Fecal DNA 2013 Flexible Sigmoidoscopy 2013 Imm-Zoster, Recombinant (1 of 2) 2018 Alcohol and Drug Screen 05/10/2023 Depression Annual Screen 05/10/2023 [id number] ( season) 2024 05/13/2021, 09/23/2020, 09/02/2020 Imm-Influenza (#1) 2024 04/10/2020 [place]
--- NOTE | 2024-06-15 10:04 | MHC.PC.OV ---
Intake Visit Reasons: med redfill Allergies penicillin V Allergy (Unknown, Verified 06/15/24 10:05) Nausea and Vomiting Penicillins [PENICILLINS] Allergy (Unknown, Verified 06/15/24 10:05) NAUSEA/VOMITING MUSCLE RELAXER Allergy (Unknown, Uncoded 06/15/24 10:05) FOAMING AT THE MOUTH - CANNOT REMEMBER NAME OF DRUG Medication List - Last Reconciled 06/15/24 by Isabell Burton, [facility]- albuterol sulfate 90 mcg/actuation 2 inhalations inhalation Q20M PRN albuterol sulfate 2.5 mg (3 mL) inhalation Q4-6H PRN clonidine HCl 0.2 mg PO BEDTIME fluticasone propionate 110 mcg/actuation 1 puff PO BID NS folic acid 1 mg PO DAILY hydroxyzine HCl 25 mg PO BEDTIME omeprazole 20 mg PO DAILY 30 days thiamine HCl (vitamin B1) 250 mg PO DAILY Tobacco use date assessed: 06/15/24 Dental Screening Dental Screen Date: 06/15/24 Did you have a dental visit in the last 12 months?: Yes Did you have a dental problem in the last 6 months where you did not have access to dental care?: No Was dental information given to patient?: Patient has dentist HPI HPI Comments History of Present Illness Details TELEHEALTH APPT: The patient is a 54-year-old male presenting with medication management and prescription refill concerns. The patient reports running out of albuterol for breathing and mentions difficulties in acquiring the nebulizer solution due to stocking issues at the pharmacy. The patient has been without the nebulizer solution for about one to two months, resulting in breathing problems. Additionally, the patient has not been using clonidine for withdrawals as he is out of it. He reports using the Flovent inhaler daily but encounters problems refilling it due to prescription issues. Social History - The patient does not have a primary care provider or consistent follow-up, leading to challenges in managing his conditions. Discussion Notes During our telehealth visit, I discussed with the patient the challenges he is facing with obtaining medications, namely albuterol for nebulizer treatment, clonidine, and Flovent inhaler. I highlighted that there have been issues with prescription refills because the patient is not registered as an established patient in our system. I explained that refills cannot be processed for walk-in patients without regular visits. I agreed to refill his inhalers immediately to address his current breathing difficulties. I advised him to register for the patient portal to facilitate better communication and appointment scheduling. The patient was informed that the front office staff would contact him to assist with health care management and access to the patient portal. He reports Dr Vazquez as listed for PCP. He has never seen him. Patient Instructions - Use the Flovent inhaler daily as prescribed. - Utilize albuterol inhaler as needed for breathing issues. - Await contact from the front office staff for setting up a routine follow-up appointment. - Sign up for the electronic patient portal for easier access and communication with the health facility. - Contact health providers immediately in the event of worsening symptoms or breathing difficulties. Plan - Refill and provide albuterol nebulizer solution and inhaler to manage asthma symptoms. - Provide Flovent refill as an everyday inhaler for asthma management. - Send prescription refills to the patient's local [facility] pharmacy. - Encourage patient enrollment in the patient portal for improved care management. - Message the front office staff to establish contact with the patient and assist in setting up routine care. Patient was informed and verbally consented to the use of an ambient scribe for clinic note documentation during this visit. [facility] Medical History Skin lesion Bilateral impacted cerumen Upper respiratory tract infection Acquired syphilis Screening for STD (sexually transmitted disease) Polyuria Penile discharge Lichenification Laboratory examination ordered as part of a routine general medical examination Tinea barbae Folliculitis GERD (gastroesophageal reflux disease) ETOH abuse Depression Anxiety Surgical History No pertinent past surgical history Family History Other Mental health disorder Substance abuse Social History Housing: Apartment Alcohol intake: current Alcohol intake frequency: 3 or more drinks per day Alcohol type: beer and hard liquor Patient Tobacco Use Status: Former Tobacco user Cigarette Packs Per Day: 1 Years Smoked: 20 e-Cigarette/Vaping Use: Never Used service: No Current occupational status: unemployed Current occupational exposures/hazards: No Cognitive needs: No Hearing needs: No Vision needs: No Questionnaire PHQ-9 Over the last 2 weeks, how often have you been bothered by any of the following problems? 1. Little interest or pleasure in doing things: not at all 2. Feeling down, depressed, or hopeless: not at all 3. Trouble falling or staying asleep, or sleeping too much: not at all 4. Feeling tired or having little energy: not at all 5. Poor appetite or overeating: not at all 6. Feeling bad about yourself - or that you are a failure or have let yourself or your family down: not at all 7. Trouble concentrating on things, such as reading the newspaper or watching television: not at all 8. Moving or speaking so slowly that other people could have noticed. Or the opposite - being so fidgety or restless that you have been moving around a lot more than usual: not at all 9. Thoughts that you would be better off or of hurting yourself in some way: not at all Total score: 0 Depression Screening Interpretation: Negative Depression Screening Done: Yes 71240 - PHQ-9 Billing: Yes Source: Developed by Drs. Rao Pedroza, Rylee Driver, Moreno Corona and colleagues, with an educational sergio from [employer]. Thrive Questionnaire Date Thrive assessed: 06/15/24 I am a: Patient What is your living situation today?: I choose not to answer this question Within the past 12 months, did the food you bought not last and you didn't have the money to get more?: Never true Within the past 12 months, did you worry whether your food would run out before you got money to buy more?: Never true Do you have trouble paying for medicines?: I choose not to answer this question Do you have trouble getting transportation to medical appointments?: I choose not to answer this question Do you have trouble paying your heating and electricity bill?: I choose not to answer this question Do you have trouble taking care of your child, family member or friend?: I choose not to answer this question Do you have trouble with day-to-day activities such as bathing, preparing meals, shopping, managing finances, etc.?: I choose not to answer this question Are you currently unemployed and looking for a job?: I choose not to answer this question Are you interested in more education?: I choose not to answer this question Please select the resources that you would like help with: None Currently or been in a relationship where the following occur: I choose not to answer THRIVE Score: 0 AUDIT C Alcohol Use Questionnaire (AUDIT-C) 1. How often do you have a drink containing alcohol?: 4 or more times a week 2. How many drinks containing alcohol do you have on a typical day when you are drinking?: 10 or more 3. How often do you have six or more drinks on one occasion?: Daily or almost daily Total Score: 12 Score Reviewed/Action Taken: Yes BRENNA-7 AMB Questionnaire BRENNA-7 Date BRENNA - 7 assessed: 06/15/24 Feeling nervous, anxious, or on edge: 0 = Not at all Not being able to stop or control worryin = Not at all Worrying too much about different things: 0 = Not at all Trouble relaxin = Not at all Being so restless that it is hard to sit still: 0 = Not at all Becoming easily annoyed or irritable: 0 = Not at all Feeling afraid as if something awful might happen: 0 = Not at all Total BRENNA-7 score (0-4 normal; 5-9 mild; 10-14 moderate; 15-21 severe): 0 Source: Developed by Drs. Rao Pedroza, Rylee Driver, Moreno Corona and colleagues, with an educational sergio from [employer]. BRENNA-7 Assessment Billing BRENNA-7 Assessment Tool: BRENNA-7 Assessment 84476 Physical exam (Primary Care) Tobacco/Smoking Status: Tobacco use Status Tobacco use date assessed 06/30/23 12/27/23 13:58 Patient Tobacco Use Status Former Tobacco user 02/10/24 18:19 e-Cigarette/Vaping Use Never Used 12/27/23 13:58 Depression Screening Interpretation: Negative Currently or been in a relationship where the following occur: I choose not to answer Telehealth Telehealth Telehealth Platform: [facility] Location of provider rendering services: practice address Location of patient: address on file Patient Identification confirmed using: Name, : Yes Telehealth method: voice only Patient verbally consented to treatment: Yes Patient verbally consented to billing insurance company: Yes Patient informed of any privacy concerns related to visit: Yes Minutes spent on Phone/Video with Pt.: 10 Coding Level of Care Code Tele Est Pt Level 2 (65907) Complex EM visit Add On G2211 Diagnoses Simple chronic bronchitis J41.0 COPD type: chronic bronchitis Chronic bronchitis type: simple Additional Codes PHQ-9 - 13165 - PHQ-9 Billing: Yes ([id number]) BRENNA-7 Assessment Billing - BRENNA-7 Assessment Tool: BRENNA-7 Assessment [id number] ([id number]) Assessment & Plan Assessment & Plan (1) COPD (chronic obstructive pulmonary disease): Code(s): J44.9 - Chronic obstructive pulmonary disease, unspecified Category: Medical Qualifiers: COPD type: chronic bronchitis Chronic bronchitis type: simple Qualified Code(s): J41.0 - Simple chronic bronchitis Plan . Medications: New albuterol sulfate 2.5 mg (3 mL) inhalation Q4-6H PRN 75 mL 0RF shortness of breath or wheezing Refilled albuterol sulfate 90 mcg/actuation 2 inhalations inhalation Q20M PRN 1 ea 0RF shortness of breath fluticasone propionate 110 mcg/actuation 1 puff PO BID 12 grams 0RF NS Discontinued albuterol sulfate for up to 3 doses Discontinued Reason: Insurance Denied 2.5 mg (0.5 mL) inhalation Q20M 30 ea 0RF
== END 2024-06-15 11:37 | disposition home or self-care (01) ==
LOC: HO.HMCFM 08:51
PROVIDERS: PCP Nurse Practitioner Family; Visit Provider Nurse Practitioner Family
DX: J41.0 Simple chronic bronchitis (principal)

== ENCOUNTER → 2024-06-15 08:51 | Outpatient (BNVA) | payer MEDICARE, MEDICAID, SELFPAY | PROVIDERS: PCP Nurse Practitioner Family; Visit Provider Nurse Practitioner Family | DX: J41.0 Simple chronic bronchitis (principal) | CPT/HCPCS: 96127 ==

== ENCOUNTER 2024-06-19 11:12 | Outpatient (AMB) | payer MEDICARE, MEDICAID, SELFPAY ==
--- NOTE | 2024-06-19 11:17 | MHC.PC.OV ---
Vital Signs 06/19/24 11:26 Height 6 ft Weight 162 lb BMI 22.0 BP 117/74 Blood Pressure Location Rt brachial Position Sitting Respiration 16 Pulse 71 Pulse Source Pulse Oximeter Temp 97.8 F Temp Source Oral Pulse Oximetry (%) 98 Oxygen Delivery Method Room Air Intake Visit Reasons: Est. care Intake Note: patient here to establish care [employer] Supervisor Required: No Allergies penicillin V Allergy (Unknown, Verified 06/19/24 11:45) Nausea and Vomiting Penicillins [PENICILLINS] Allergy (Unknown, Verified 06/19/24 11:45) NAUSEA/VOMITING MUSCLE RELAXER Allergy (Unknown, Uncoded 06/19/24 11:45) FOAMING AT THE MOUTH - CANNOT REMEMBER NAME OF DRUG Medication List - Last Reconciled 06/19/24 by Hernandez Echevarria CNP albuterol sulfate 90 mcg/actuation 2 inhalations inhalation Q20M PRN albuterol sulfate 2.5 mg (3 mL) inhalation Q4-6H PRN clonidine HCl 0.2 mg PO BEDTIME fluticasone furoate 100 mcg/actuation (Arnuity Ellipta) 1 inh inhalation BID folic acid 1 mg PO DAILY hydroxyzine HCl 25 mg PO BEDTIME omeprazole 20 mg PO DAILY 30 days thiamine HCl (vitamin B1) 250 mg PO DAILY Tobacco use date assessed: 06/19/24 Dental Screening Dental Screen Date: 06/19/24 Did you have a dental visit in the last 12 months?: Yes Did you have a dental problem in the last 6 months where you did not have access to dental care?: No Was dental information given to patient?: Patient has dentist HPI HPI Comments History of Present Illness Details New patient Prior PCP? - Dr. Vazquez Last office visit/CPE/labs - 09/2020 Acute issue(s) - Arthritis to both hand for several years. Reports, Intermittent throbbing pain and numbness to both hands. Past Medical History - Asthma, COPD, GERD, myopia, arthritis of both hands, low back pain, gout, syphilis, JAMEL, AUD, anxiety, depression. Surgical History - None Family History - Dad: JAMEL, AUD Social History - Former smoker, quit 30 years ago. Does not vape. Drinks 3-6 beers daily and has been drinking for several years. Smoke 1-2 blunts daily. - Has been making healthy dietary choices. He walks and lifts weight routinely. Reports sleep disturbance due to arthritic pain of his hands. - He was tested positive for [place]ph[place] and was [place] [facility] [place] He notes that he was contacted for a follow up appointment but never followed up. He states that he no longer has syphilis and had since stopped having sexual intercourse with multiple women. Health maintenance - Last eye exam was a year ago. He has an eye exam scheduled with [facility] next Wednesday. Advised to sign a release for his PCP to obtain his eye record - Last dental visit was few months ago. - Last tetanus vaccine was on 06/05/2023. - He notes that he is up-to-date on the shingles vaccine. - He is not vaccinated for shingles. Advise to get vaccinated at the local pharmacy. - He has never had a colonoscopy done. Referred [place] [facility] [place] [place] [facility] [place]. [facility] Medical History (Updated 06/19/24 @ 14:35 by Hernandez Echevarria CNP) Back disorder Asthma Skin lesion Bilateral impacted cerumen Upper respiratory tract infection Acquired syphilis Screening for STD (sexually transmitted disease) Polyuria Penile discharge Lichenification Laboratory examination ordered as part of a routine general medical examination Tinea barbae Folliculitis GERD (gastroesophageal reflux disease) ETOH abuse Depression Anxiety Surgical History No pertinent past surgical history Family History (Updated 06/19/24 @ 11:35 by Evy Galindo) Father Alcohol abuse Other Substance abuse Social History Housing: Apartment Alcohol intake: current Alcohol intake frequency: 3 or more drinks per day Alcohol type: beer and hard liquor Patient Tobacco Use Status: Former Tobacco user Cigarette Packs Per Day: 1 Years Smoked: 20 e-Cigarette/Vaping Use: Never Used Substance Use Type: Marijuana service: No Current occupational status: unemployed Current occupational exposures/hazards: No Cognitive needs: No Hearing needs: No Vision needs: No Questionnaire PHQ-9 Over the last 2 weeks, how often have you been bothered by any of the following problems? 1. Little interest or pleasure in doing things: nearly every day 2. Feeling down, depressed, or hopeless: not at all 3. Trouble falling or staying asleep, or sleeping too much: nearly every day 4. Feeling tired or having little energy: not at all 5. Poor appetite or overeating: not at all 6. Feeling bad about yourself - or that you are a failure or have let yourself or your family down: not at all 7. Trouble concentrating on things, such as reading the newspaper or watching television: not at all 8. Moving or speaking so slowly that other people could have noticed. Or the opposite - being so fidgety or restless that you have been moving around a lot more than usual: not at all 9. Thoughts that you would be better off or of hurting yourself in some way: not at all Total score: 6 Depression Screening Interpretation: Positive Depression Screening Done: Yes 26439 - PHQ-9 Billing: Yes Source: Developed by Drs. Rao Pedroza, Rylee Driver, Moreno Corona and colleagues, with an educational sergio from [employer]. Thrive Questionnaire Date Thrive assessed: 06/19/24 I am a: Patient What is your living situation today?: I have a steady place to live Within the past 12 months, did the food you bought not last and you didn't have the money to get more?: I choose not to answer this question Within the past 12 months, did you worry whether your food would run out before you got money to buy more?: I choose not to answer this question Do you have trouble paying for medicines?: I choose not to answer this question Do you have trouble getting transportation to medical appointments?: No Do you have trouble paying your heating and electricity bill?: No Do you have trouble taking care of your child, family member or friend?: No Do you have trouble with day-to-day activities such as bathing, preparing meals, shopping, managing finances, etc.?: No Are you currently unemployed and looking for a job?: I choose not to answer this question Are you interested in more education?: I choose not to answer this question Please select the resources that you would like help with: None Currently or been in a relationship where the following occur: I choose not to answer THRIVE Score: 0 AUDIT C Alcohol Use Questionnaire (AUDIT-C) 1. How often do you have a drink containing alcohol?: 2-3 times a week 2. How many drinks containing alcohol do you have on a typical day when you are drinking?: 1 or 2 3. How often do you have six or more drinks on one occasion?: Weekly Total Score: 6 Score Reviewed/Action Taken: Yes BRENNA-7 AMB Questionnaire BRENNA-7 Date BRENNA - 7 assessed: 06/19/24 Feeling nervous, anxious, or on edge: 0 = Not at all Not being able to stop or control worryin = Not at all Worrying too much about different things: 0 = Not at all Trouble relaxin = More than half the days Being so restless that it is hard to sit still: 0 = Not at all Becoming easily annoyed or irritable: 0 = Not at all Feeling afraid as if something awful might happen: 0 = Not at all Total BRENNA-7 score (0-4 normal; 5-9 mild; 10-14 moderate; 15-21 severe): 2 Source: Developed by Drs. Rao Pedroza, Rylee Driver, Moreno Corona and colleagues, with an educational sergio from [employer]. BRENNA-7 Assessment Billing BRENNA-7 Assessment Tool: BRENNA-7 Assessment 22201 ACT Questionnaire In the past 4 weeks, how much of the time did your asthma keep you from getting as much done at work, school or at home?: A little of the time During the past 4 weeks, how often have you had shortness of breath?: 3-6 times a week During the past 4 weeks, how often did your asthma symptoms wake you up at night or earlier than usual in the morning?: 2-3 nights a week During the past 4 weeks, how often have you had to use your rescue inhaler or nebulizer medication?: 2-3 times a week How would you rate your asthma control during the past 4 weeks?: Somewhat controlled ACT Interpretation: Positive Score: 15 Review of Systems Const Details: Denies chills, Denies fatigue, Denies fever(s), Denies headache(s) and Denies weakness HEENT Denies change in vision, Denies dizziness, Denies headache(s), Denies hearing loss, Denies nasal congestion, Denies sinus pain, Denies sinus pressure and Denies sore throat Card Denies chest pain, Denies lightheadedness, Denies dyspnea and Denies other (palpitations) Resp Denies cough, Denies dyspnea and Denies wheezing GI Denies abdominal pain, Denies melena, Denies hematochezia, Denies change in bowel habits, Denies dyspepsia and Denies nausea Denies hematuria and Denies dysuria Musc Reports as per HPI Skin/Breast Denies rash, Denies unusual bruising and Denies wounds Neuro Denies abnormal gait, Denies dizziness, Denies headache(s), Denies memory loss, Denies numbness, Denies Sensory deficit (Neuro), Denies tingling and Denies weakness Psych Denies anxiety, Denies depression and Denies memory loss Endo Denies cold intolerance, Denies fatigue, Denies heat intolerance, Denies polydipsia and Denies polyuria Joshua/Lymph Denies easy bleeding and Denies easy bruising Aller/Immun Denies wheezing Physical exam (Primary Care) Vital Signs: Last Vital Signs Temp 97.8 F 06/19/24 11:26 Pulse 71 06/19/24 11:26 Resp 16 06/19/24 11:26 BP 117/74 06/19/24 11:26 Pulse Ox 98 06/19/24 11:26 Oxygen Delivery Method Room Air 06/19/24 11:26 BMI result Body Mass Index 22.0 Tobacco/Smoking Status: Tobacco use Status Tobacco use date assessed 06/19/24 06/19/24 11:35 Patient Tobacco Use Status Former Tobacco user 06/19/24 11:23 e-Cigarette/Vaping Use Never Used 06/19/24 11:23 PHQ-9: PHQ-9 Score PHQ-9: Total score 6 06/19/24 11:20 Depression Screening Interpretation: Positive Thrive Assessment: Date of Thrive Assessment Date Thrive assessed 06/19/24 06/19/24 11:20 Currently or been in a relationship where the following occur: I choose not to answer Const Other: General: no acute distress, well developed, alert and awake Nutritional Appearance: well nourished Orientation/consciousness: patient oriented x3 HENMT Head: Yes normocephalic and Yes atraumatic Ears: hearing grossly normal bilaterally and TM's normal bilaterally General nose exam: Normal external nose present and Normal nares present Mouth: Normal oral and palatal mucosa present and moist mucous membranes Teeth and gingiva: dentition normal. Several missing teeth Throat: Yes oropharynx normal Eyes Pupils: Equal, round and reactive pupils present and Pupil accommodation reflex normal EOM: EOMs intact bilaterally Neck Neck: Yes normal visual inspection, Yes no lymphadenopathy and Yes trachea midline Thyroid: Thyroid normal Carotids: no bruits Lymphatic: no lymphadenopathy noted Chest Chest palpation & inspection: normal inspection of the chest Resp Effort & Inspection: normal respiratory effort Auscultation: clear to auscultation bilaterally Cardio Rate: regular rate Rhythm: regular rhythm Heart sounds: S1 normal heart sound present, S2 normal heart sound present, no gallops, no murmurs and no rubs Bruits: no abdominal aortic bruits and no carotid bruits GI Palpation (GI): No Abdominal aortic bruit present, Soft to palpation, nontender, No hepatosplenomegaly present and No Rebound tenderness present Auscultation: normal bowel sounds General: Yes no CVA tenderness Back/Spine/Pelvis Back: no CVA tenderness Cervical Spine: cervical ROM normal and No Cervical spine tenderness Thoracic/Lumbar Spine: thoraco-lumbar ROM normal, No pain with thoraco-lumbar ROM, No thoracic spinal tenderness and No lumbar spinal tenderness Skin General: warm and dry. Normal skin color. Normal skin turgor Lesions: no lesions Rashes: no rashes Trauma: no lacerations or abrasions Wounds: no wounds Nails: normal Neuro General: patient oriented x3, gait normal and CN's II-XI intact bilaterally Cranial nerves: Yes Equal, round and reactive pupils present Cognition (Neuro): normal cognition Gait exam (Neuro): Normal gait present Motor exam (neuro): 5/5 motor strength present throughout Sensory Exam: No Sensory deficit (Neuro) Deep tendon reflexes (DTR's): Right patellar reflex intensity grade: 2+ and Left patellar reflex intensity grade: 2+ Extrem General: Yes normal to inspection, No edema and No calf tenderness Psych Appearance: grossly normal Affect: normal affect Attitude: cooperative Thought process: Normal thought process present Coding Level of Care Code New Pt Level 4 (62859) New Pt Prev Care 40-64y(19032) Diagnoses Normal physical examination, routine Z00.00 Positive serology for syphilis A53.0 Asthma J45.909 Arthritis of both hands M19.041; M19.042 Colon cancer screening Z12.11 GERD (gastroesophageal reflux disease) K21.9 Screening PSA (prostate specific antigen) Z12.5 Alcohol use disorder F10.90 Laboratory tests ordered as part of a complete physical exam (CPE) Z00.00 Additional Codes BRENNA-7 Assessment Billing - BRENNA-7 Assessment Tool: BRENNA-7 Assessment 27248 ([id number]) PHQ-9 - 03021 - PHQ-9 Billing: Yes ([id number]) Asthma Control Questionnaire - ACT Interpretation: Positive ([id number]) Assessment & Plan Assessment & Plan (1) Normal physical examination, routine: Code(s): Z00.00 - Encounter for general adult medical examination without abnormal findings Category: Medical Plan: No significant function limitation noted. Continue current treatment regimen. Follow-up in 1 month for asthma and labs review or sooner with symptoms or concerns. Verbalized understanding and agreed with treatment plan. (2) Positive serology for syphilis: Code(s): A53.0 - Latent syphilis, unspecified as early or late Category: Medical Plan: He tested positive for syphilis on 02/07/2024. He did not follow-up for treatment with [facility] [place] [place] as recommended[place] Instructed on safe sexual practices. Will retest for syphilis and make changes as needed. Verbalized understanding and agreed with the plan. (3) Asthma: Code(s): J45.909 - Unspecified asthma, uncomplicated Category: Medical Plan: ACT score is 15, partially control asthma. Asthma inhalers refilled; advised to use as prescribed. Follow-up in 1 month or sooner with symptoms or concerns. Verbalized understanding and agreed with treatment plan. (4) Arthritis of both hands: Code(s): M19.041 - Primary osteoarthritis, right hand; M19.042 - Primary osteoarthritis, left hand Category: Medical Plan: Arthritis to both hand for several years with Intermittent throbbing pain and numbness to both hands. Normal ROM and CMS. No overt injury or trauma. Naproxen 500 mg twice daily as needed ordered; advised to take as prescribed and with foods. Instructed on the risks, benefits, and potential adverse reactions of the medication. Follow-up with worsening or new symptoms. Verbalized understanding and agreed with treatment plan. (5) Colon cancer screening: Code(s): Z12.11 - Encounter for screening for malignant neoplasm of colon Category: Medical Plan: He has never had a colonoscopy. [place] [facility] [place]. (6) GERD (gastroesophageal reflux disease): Code(s): K21.9 - Gastro-esophageal reflux disease without esophagitis Category: Medical Plan: No acute symptoms. Omeprazole refilled as requested. Follow-up with symptoms or concerns. Verbalized understanding and agreed with the plan. (7) Screening PSA (prostate specific antigen): Code(s): Z12.5 - Encounter for screening for malignant neoplasm of prostate Category: Medical Plan: PSA lab ordered. (8) Alcohol use disorder: Code(s): F10.90 - Alcohol use, unspecified, uncomplicated Category: Medical Plan: He drinks 3-6 beers daily and has been drinking for several years. Declines referral to [facility] [place] at this time. He notes that he has been cutting down his drinking and will continue to do so. Instructed on the health risks and complications of excessive alcohol intake. Encouraged to limit or avoid alcohol consumption. Will continue to monitor. Follow-up as needed. Verbalized understanding and agreed with the plan. (9) Laboratory tests ordered as part of a complete physical exam (CPE): Code(s): Z00.00 - Encounter for general adult medical examination without abnormal findings Category: Medical Plan: Fasting labs ordered as part of a complete physical exam. Advised to fast for at least 10 hours before getting labs drawn. May drink water Verbalized understanding and agreed with treatment plan. Orders: Orders Complete Blood Count Auto Diff Today Z00.00 - Encounter for general adult medical examination without abnormal findings Syphilis Screen Today A53.0 - Latent syphilis, unspecified as early or late Comprehensive [place]. Panel Fast Today Z00.00 - Encounter for general adult medical examination without abnormal findings Lipid Panel Today Z00.00 - Encounter for general adult medical examination without abnormal findings TSH reflex Free T4 Today Z00.00 - Encounter for general adult medical examination without abnormal findings UA CC w/rflx Micro + Cult Today Z00.00 - Encounter for general adult medical examination without abnormal findings Microalbumin, Random (w Creat) Today Z00.00 - Encounter for general adult medical examination without abnormal findings PSA, Ultra Sensitive Today Z12.5 - Encounter for screening for malignant neoplasm of prostate Referrals Gastroenterology Referral Z12.11 - Encounter for screening for malignant neoplasm of colon Medications: New naproxen 500 mg PO BID PRN 60 tabs 1RF pain albuterol sulfate 90 mcg/actuation (Ventolin HFA) 2 puffs inhalation Q4-6H PRN 8.5 grams 3RF shortness of breath or wheezing Refilled omeprazole 20 mg PO DAILY 30 days 30 caps 3RF fluticasone furoate 100 mcg/actuation (Arnuity Ellipta) 1 inh inhalation BID 30 ea 3RF Discontinued clonidine HCl Discontinued Reason: Patient no longer taking 0.2 mg PO BEDTIME 30 tabs 0RF hydroxyzine HCl Discontinued Reason: Patient no longer taking 25 mg PO BEDTIME 7 tabs 0RF L24.3 - Irritant contact dermatitis due to cosmetics folic acid Discontinued Reason: Patient no longer taking 1 mg PO DAILY 30 tabs 0RF
[2024-06-19 11:26] VITALS: BP 117/74; PULSE 71; RESP 16; TEMP 36.6; O2SAT 98; BMI 22.0
--- OUTSIDE RECORDS SUMMARY | 2024-06-19 12:25 | XMS_ITS | Clinical Summary ---
Author Organization [facility] Address [address] [place] [address] Care Team Providers Care Behavioral Interventionist Name Role Phone Unavailable Primary Care Provider [...] Drug Screen 05/10/2023 Depression Annual Screen 05/10/2023 [id number] ( season) 2024 05/13/2021, 09/23/2020, 09/02/2020 Imm-Influenza (#1) 2024 04/10/2020 [place]
== END 2024-06-19 14:40 | disposition home or self-care (01) ==
PROVIDERS: PCP Nurse Practitioner Family; Visit Provider Nurse Practitioner Family
DX: Z00.00 Encounter for general adult medical examination without abnormal findings (principal); J45.909 Unspecified asthma, uncomplicated; A53.0 Latent syphilis, unspecified as early or late; M19.041 Primary osteoarthritis, right hand; M19.042 Primary osteoarthritis, left hand; Z12.11 Encounter for screening for malignant neoplasm of colon; K21.9 Gastro-esophageal reflux disease without esophagitis; Z12.5 Encounter for screening for malignant neoplasm of prostate; F10.90 Alcohol use, unspecified, uncomplicated

== ENCOUNTER → 2024-06-19 11:12 | Outpatient (BNVA) | payer MEDICARE, MEDICAID, SELFPAY | PROVIDERS: PCP Nurse Practitioner Family; Visit Provider Nurse Practitioner Family | DX: Z00.01 Encounter for general adult medical examination with abnormal findings (principal); A53.0 Latent syphilis, unspecified as early or late; J45.909 Unspecified asthma, uncomplicated; M19.041 Primary osteoarthritis, right hand; M19.042 Primary osteoarthritis, left hand; K21.9 Gastro-esophageal reflux disease without esophagitis; F10.90 Alcohol use, unspecified, uncomplicated | CPT/HCPCS: 96127; 96160; 99202; 99386 ==

== ENCOUNTER 2024-07-31 13:43 | Outpatient (REF) | payer MEDICARE, MEDICAID, SELFPAY ==
[2024-07-31 16:12] LABS: MANUAL DIFF FLAG NO
[2024-07-31 16:26] LABS: Basophils Percent Auto 0.9 % (0-2); Eosinophils Absolute Auto 0.1 X10*3/uL (0.0-0.4); Eosinophils Percent Auto 3.2 % (0-4); Hematocrit 40.5 % (42.0-52.0); Hemoglobin 13.5 g/dl (14.0-18.0); Imm Gran Abs Auto 0.01 X10*3/uL (0.00-0.03); Imm Gran Pct Auto 0.3 % (0.0-0.4); Lymphocytes Absolute Auto 1.6 X10*3/uL (1.2-4.9); Lymphocytes Percent Auto 46.8 % (20-40); Mean Corpuscular HGB Conc 33.3 g/dl (31.0-36.0); Mean Corpuscular Hemoglobin 29.9 pg (27.0-33.0); Mean Corpuscular Volume 89.8 fL (80.0-98.0); Mean Platelet Volume 9.8 fL (9.4-12.4); Monocytes Absolute Auto 0.7 X10*3/uL (0.1-1.2); Monocytes Percent Auto 18.7 % (2-11); Neutrophils Absolute Auto 1.1 x10*3/uL (2.0-8.3); Neutrophils Percent Auto 30.1 % (45-73); Platelet Count 357 X10*3/uL (160-400); Red Blood Count 4.51 X10*6/uL (4.60-5.80); Red Cell Distribution Width 13.3 % (11.0-16.0); White Blood Count 3.5 X10*3/uL (4.8-10.8)
[2024-07-31 16:32] LABS: Appearance Urine Clear; Color Urine Yellow; Glucose Urine UA Negative (Negative); Leukocyte Esterase Urine Trace (Negative); Nitrite Urine Negative (Negative); Specific Gravity - Urine <= 1.005 (1.005-1.025); UMIC TRIGGER UACC YES; Urine Blood Negative (Negative); Urine Ketones Negative (Negative); Urine Protein Negative (Neg-Trace)
[2024-07-31 16:36] LABS: Bacteria Urine None Seen (None Seen); Hyaline Casts Urine 0-2 /LPF (0-2); RBC Urine 0-2 /HPF (0-2); Squamous Epithelial Cell Urine 0-2 /HPF (0-2); WBC Urine 0-5 /HPF (0-5)
[2024-07-31 16:55] LABS: Alanine Aminotransferase 46 U/L (0-40); Albumin Level 4.2 g/dL (3.5-5.0); Anion Gap 12 (12-20); Aspartate Amino Transferase 60 U/L (5-37); Bilirubin Total 0.5 mg/dL (0.0-1.0); Blood Urea Nitrogen 10 mg/dL (9-16); Calcium 9.7 mg/dL (8.4-10.2); Carbon Dioxide 25 mmol/L (22-29); Chloride 106 mmol/L (96-108); Cholesterol 224 mg/dL (<200); Estimated Glomerular Filt Rate > 60; Glucose Fasting 91 mg/dL (60-99); HDL Cholesterol 80 mg/dL (>40); LDL Cholesterol Calculated 105 mg/dL (<100); Potassium 4.2 mmol/L (3.3-5.1); Sodium 139 mmol/L (135-145); Total Protein 7.9 g/dL (6.5-8.0); Triglycerides 196 mg/dL (<150)
[2024-07-31 17:03] LABS: Alkaline Phosphatase 123 U/L (39-117); TSH reflex Free T4 0.68 uIU/mL (0.32-4.0)
[2024-07-31 17:25] LABS: Creatinine Urine 38.99 mg/dL; Microalbum/Creatinine Ratio Ur 12.8 ug/mg cr (<30)
[2024-08-01 05:21] LABS: Syphilis Screen Reactive (Nonreactive)
[2024-08-04 15:17] LABS: RPR Quantitative Non-Reactive (Nonreactive)
[2024-08-04 15:18] LABS: T.Pallidum Particle Agg Test Reactive (Nonreactive)
== END 2024-07-31 13:44 | disposition home or self-care (01) ==
LOC: HO.HMGCLDS 13:43
PROVIDERS: Visit Provider Nurse Practitioner Family
DX: Z00.00 Encounter for general adult medical examination without abnormal findings (principal); A53.0 Latent syphilis, unspecified as early or late; Z12.5 Encounter for screening for malignant neoplasm of prostate; Z13.6 Encounter for screening for cardiovascular disorders
CPT/HCPCS: 36415; 80053; 80061; 81001; 82043; 82570; 84153; 84443; 85025; 86592; 86780

== ENCOUNTER 2024-08-01 10:37 | Outpatient (AMB) | payer MEDICARE, MEDICAID, SELFPAY ==
--- NOTE | 2024-08-01 10:51 | MHC.PC.OV ---
Vital Signs 08/01/24 11:02 Height 6 ft Weight 162 lb BMI 22.0 BP 129/84 Blood Pressure Location Rt brachial Position Sitting Respiration 16 Pulse 90 Pulse Source Pulse Oximeter Temp 97.6 F Temp Source Oral Pulse Oximetry (%) 95 Oxygen Delivery Method Room Air Intake Visit Reasons: 1 month asthma, labs review Intake Note: patient here for follow up on asthma and lab review. Configuration Management Specialist Required: No Allergies penicillin V Allergy (Unknown, Verified 08/01/24 11:07) Nausea and Vomiting Penicillins [PENICILLINS] Allergy (Unknown, Verified 08/01/24 11:07) NAUSEA/VOMITING MUSCLE RELAXER Allergy (Unknown, Uncoded 08/01/24 11:07) FOAMING AT THE MOUTH - CANNOT REMEMBER NAME OF DRUG Medication List - Last Reconciled 08/01/24 by Hernandez Echevarria CNP albuterol sulfate 2.5 mg (3 mL) inhalation Q4-6H PRN albuterol sulfate 90 mcg/actuation (Ventolin HFA) 2 puffs inhalation Q4-6H PRN fluticasone furoate 100 mcg/actuation (Arnuity Ellipta) 1 inh inhalation BID naproxen 500 mg PO BID PRN omeprazole 20 mg PO DAILY 30 days Tobacco use date assessed: 08/01/24 Dental Screening Dental Screen Date: 08/01/24 Did you have a dental visit in the last 12 months?: Yes Did you have a dental problem in the last 6 months where you did not have access to dental care?: No Was dental information given to patient?: Patient has dentist HPI HPI Comments History of Present Illness Details 54-year-old male presents for asthma and review of recent lab results. He admits to taking his medications as prescribed without adverse reactions. He notes that his asthma symptoms are generally well controlled. However, he uses his rescue inhaler frequently at night. He has history of positive syphilis. He has no chancres and no symptoms. He notes that he has sexually active with his for 25 years, only, after his last STD testing in 01/2024. He offers no complaints and denies acute symptoms at this time. [facility] Medical History (Updated 08/01/24 @ 11:14 by Hernandez Echevarria CNP) Back disorder Asthma Skin lesion Bilateral impacted cerumen Upper respiratory tract infection Acquired syphilis Screening for STD (sexually transmitted disease) Polyuria Penile discharge Lichenification Laboratory examination ordered as part of a routine general medical examination Tinea barbae Folliculitis GERD (gastroesophageal reflux disease) ETOH abuse Depression Anxiety Surgical History No pertinent past surgical history Family History (Updated 06/19/24 @ 11:35 by Evy Galindo MA) Father Alcohol abuse Other Substance abuse Social History Housing: Apartment Alcohol intake: current Alcohol intake frequency: 3 or more drinks per day Alcohol type: beer and hard liquor Patient Tobacco Use Status: Former Tobacco user Cigarette Packs Per Day: 1 Years Smoked: 20 e-Cigarette/Vaping Use: Never Used Substance Use Type: Marijuana service: No Current occupational status: unemployed Current occupational exposures/hazards: No Cognitive needs: No Hearing needs: No Vision needs: No Questionnaire Thrive Questionnaire Date Thrive assessed: 06/19/24 I am a: Patient What is your living situation today?: I have a steady place to live Within the past 12 months, did the food you bought not last and you didn't have the money to get more?: I choose not to answer this question Within the past 12 months, did you worry whether your food would run out before you got money to buy more?: I choose not to answer this question Do you have trouble paying for medicines?: I choose not to answer this question Do you have trouble getting transportation to medical appointments?: No Do you have trouble paying your heating and electricity bill?: No Do you have trouble taking care of your child, family member or friend?: No Do you have trouble with day-to-day activities such as bathing, preparing meals, shopping, managing finances, etc.?: No Are you currently unemployed and looking for a job?: I choose not to answer this question Are you interested in more education?: I choose not to answer this question Please select the resources that you would like help with: None Currently or been in a relationship where the following occur: I choose not to answer THRIVE Score: 0 BRENNA-7 AMB Questionnaire BRENNA-7 Date BRENNA - 7 assessed: 06/19/24 Source: Developed by Drs. Rao Pedroza, Rylee Driver, Moreno Corona and colleagues, with an educational sergio from [employer]. ACT Questionnaire In the past 4 weeks, how much of the time did your asthma keep you from getting as much done at work, school or at home?: A little of the time During the past 4 weeks, how often have you had shortness of breath?: More than once a day During the past 4 weeks, how often did your asthma symptoms wake you up at night or earlier than usual in the morning?: 4 or more nights a week During the past 4 weeks, how often have you had to use your rescue inhaler or nebulizer medication?: More than 3 times per day How would you rate your asthma control during the past 4 weeks?: Somewhat controlled ACT Interpretation: Positive Score: 10 Review of Systems Const Details: Const Denies chills, Denies fatigue, Denies fever(s), Denies headache(s) and Denies weakness ENT Denies dizziness and Denies headache(s) Card Denies chest pain, Denies lightheadedness, Denies dyspnea and Denies other (Palpitations) Resp Denies cough, Denies dyspnea, Denies wheezing and Denies other ( shortness of breath) GI Denies abdominal pain, Denies melena, Denies hematochezia, Denies change in bowel habits, Denies dyspepsia and Denies nausea Denies hematuria and Denies dysuria Musc Denies abnormal gait, Denies myalgias, Denies arthralgias, Denies numbness and Denies tingling Skin/Breast Denies rash, Denies unusual bruising and Denies wounds Neuro Denies abnormal gait, Denies dizziness, Denies headache(s), Denies memory loss, Denies numbness, Denies Sensory deficit (Neuro), Denies tingling and Denies weakness Psych Denies anxiety, Denies depression, Denies memory loss Endo Denies cold intolerance, Denies fatigue, Denies heat intolerance, Denies polydipsia and Denies polyuria Aller/Immun Denies wheezing Physical exam (Primary Care) Tobacco/Smoking Status: Tobacco use Status Tobacco use date assessed 06/19/24 08/01/24 10:51 Patient Tobacco Use Status Former Tobacco user 08/01/24 10:51 e-Cigarette/Vaping Use Never Used 08/01/24 10:51 Thrive Assessment: Date of Thrive Assessment Date Thrive assessed 02/10/25 03/25/25 10:51 Currently or been in a relationship where the following occur: I choose not to answer Const Other: General: no acute distress and well developed Nutritional Appearance: well nourished Orientation/consciousness: patient oriented x3 [facility] Head: Yes normocephalic and Yes atraumatic Eyes General: appearance normal, both eyes and all related structures Pupils: Equal, round and reactive pupils present EOM: EOMs intact bilaterally Resp Effort & Inspection: normal respiratory effort Auscultation: clear to auscultation bilaterally Cardio Rate: regular rate Rhythm: regular rhythm Heart sounds: S1 normal heart sound present, S2 normal heart sound present, no gallops, no murmurs and no rubs GI Palpation (GI): No Abdominal aortic bruit present, Soft to palpation, nontender, No hepatosplenomegaly present and No Rebound tenderness present Auscultation: normal bowel sounds General: Yes no CVA tenderness Back/Spine/Pelvis Back: no CVA tenderness Cervical Spine: cervical ROM normal and No Cervical spine tenderness Thoracic/Lumbar Spine: thoraco-lumbar ROM normal, No pain with thoraco-lumbar ROM, No thoracic spinal tenderness and No lumbar spinal tenderness Extrem General: Yes normal to inspection, No edema and No calf tenderness Skin General: warm and dry. Normal skin color. Normal skin turgor Neuro General: patient oriented x3, gait normal and no focal neuro deficit Cranial nerves: Yes Equal, round and reactive pupils present Cognition (Neuro): normal cognition Gait exam (Neuro): Normal gait present Sensory Exam: No Sensory deficit (Neuro) Psych Appearance: grossly normal Affect: normal affect Attitude: cooperative Thought process: Normal thought process present Coding Level of Care Code Est Pt Level 4 (89839) Diagnoses Asthma J45.909 Microcytic anemia D50.9 Leukopenia D72.819 Hyperlipidemia E78.5 Transaminitis R74.01 Positive serology for syphilis A53.0 Additional Codes Asthma Control Questionnaire - ACT Interpretation: Positive ([id number]) Assessment & Plan Assessment & Plan (1) Asthma: Code(s): J45.909 - Unspecified asthma, uncomplicated Category: Medical Plan: ACT score is 10, poorly controlled asthma. His asthma symptoms are generally well-controlled but uses his rescue inhaler frequently at night. Continue current treatment regimen. Referred to pulmonology. Follow-up with worsening or new symptoms. Verbalized understanding and agreed with treatment plan. (2) Microcytic anemia: Code(s): D50.9 - Iron deficiency anemia, unspecified Category: Medical Plan: Recent RBC and H&H are slightly low, 4.51 and 13.5/40.5 respectively, MCV is normal. Will check iron profile, ferritin, vitamin B12, and folate levels. Will review results and make changes as needed. Verbalized understanding and agreed with the plan. (3) Leukopenia: Code(s): D72.819 - Decreased white blood cell count, unspecified Category: Medical Plan: Recent WBC level is low, 3.5. He has history of low WBC count. Will check vitamin B12 and folate levels and make changes as needed. Verbalized understanding and agreed with the plan. (4) Hyperlipidemia: Code(s): E78.5 - Hyperlipidemia, unspecified Category: Medical Plan: Recent triglycerides, total cholesterol, and LDL levels are elevated, 196, 224, and 105 respectively. Advised to limit foods high in saturated fat and avoid foods high in trans fat. Routine exercise encouraged. Fast for 10-12 hours, may drink water, and perform lipid panel blood work to 3 days before next visit. Follow-up for telehealth visit in 2 months. Return sooner with symptoms or concerns. Verbalized understanding and agreed with treatment plan. (5) Transaminitis: Code(s): R74.01 - Elevation of levels of liver transaminase levels Category: Medical Plan: Recent AST, ALT, and alk-phos levels slightly elevated, 60, 46, and 123 respectively. Hepatic steatosis is likely. Healthy diet, including low-fat encouraged. Advised to exercise routinely. Will check liver enzymes in 2 months. Verbalized understanding and agreed with the plan. (6) Positive serology for syphilis: Code(s): A53.0 - Latent syphilis, unspecified as early or late Category: Medical Plan: Recent syphilis test is positive. RPR is pending. No acute symptoms. No chancres. He has history of syphilis and was evaluated by [facility] in 04/2022. No treatment was indicated. He was advised to follow-up as needed. Will check hepatitis B and C. Follow-up with [facility] as needed. Verbalized understanding and agreed with the plan. Orders: Orders Lipid Panel 2 Months E78.5 - Hyperlipidemia, unspecified Vitamin B12 and Folate Today D72.819 - Decreased white blood cell count, unspecified Ferritin Today D50.9 - Iron deficiency anemia, unspecified Liver Panel 2 Months R74.01 - Elevation of levels of liver transaminase levels IRON PROFILE Today D50.9 - Iron deficiency anemia, unspecified Hepatitis B,C Profile Today A53.0 - Latent syphilis, unspecified as early or late, R74.01 - Elevation of levels of liver transaminase levels Referrals Pulmonology Referral J45.909 - Unspecified asthma, uncomplicated
[2024-08-01 11:02] VITALS: BP 129/84; PULSE 90; RESP 16; TEMP 36.4; O2SAT 95; BMI 22.0
== END 2024-08-01 11:31 | disposition home or self-care (01) ==
LOC: HO.HMCFM 10:38
PROVIDERS: PCP Nurse Practitioner Family; Visit Provider Nurse Practitioner Family
DX: J45.909 Unspecified asthma, uncomplicated (principal); D50.9 Iron deficiency anemia, unspecified; D72.819 Decreased white blood cell count, unspecified; E78.5 Hyperlipidemia, unspecified; R74.01 Elevation of levels of liver transaminase levels; A53.0 Latent syphilis, unspecified as early or late

== ENCOUNTER → 2024-08-01 10:37 | Outpatient (BNVA) | payer MEDICARE, MEDICAID, SELFPAY | PROVIDERS: PCP Nurse Practitioner Family; Visit Provider Nurse Practitioner Family | DX: J45.909 Unspecified asthma, uncomplicated (principal); D50.9 Iron deficiency anemia, unspecified; D72.819 Decreased white blood cell count, unspecified; E78.5 Hyperlipidemia, unspecified; R74.01 Elevation of levels of liver transaminase levels; A53.0 Latent syphilis, unspecified as early or late | CPT/HCPCS: 96160; 99212 ==

== ENCOUNTER 2024-08-11 11:09 | Outpatient (AMB) | payer MEDICARE, MEDICAID, SELFPAY ==
[2024-08-11 11:12] VITALS: BP 118/86; PULSE 93; TEMP 36.7; O2SAT 100; BMI 22.0
--- NOTE | 2024-08-11 11:12 | MHC.OFFWIV ---
Intake Vital Signs 08/11/24 11:12 Height 6 ft Weight 162 lb BMI 22.0 BP 118/86 Blood Pressure Location Lt brachial Position Sitting Pulse 93 Pulse Source Pulse Oximeter Temp 98.0 F Temp Source Oral Pulse Oximetry (%) 100 Oxygen Delivery Method Room Air Intake Visit Reasons: EP pain lower side of abdomen area [phone] Patient Tobacco Use Status: Former Tobacco user Allergies penicillin V Allergy (Unknown, Verified 08/11/24 11:12) Nausea and Vomiting Penicillins [PENICILLINS] Allergy (Unknown, Verified 08/11/24 11:12) NAUSEA/VOMITING MUSCLE RELAXER Allergy (Unknown, Uncoded 08/01/24 11:07) FOAMING AT THE MOUTH - CANNOT REMEMBER NAME OF DRUG Do you need a note to return to daycare/school/sports/work: No HPI EP pain lower side of abdomen area [phone] HPI Details Patient is a 54-year-old male with history of alcohol and polysubstance abuse disorder, as well as COPD, who comes to the walk-in clinic complaining of acute left lower abdominal pain that started earlier today while he was driving. 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 He also does report that he coughs frequently with his COPD. His pain diminished while he was waiting to be seen here at the walk-in, however it does reoccur with palpation to the abdomen. He reports that it radiates down into his left groin and scrotum area. He denies nausea vomiting diarrhea, fever chills, weakness or dizziness, anorexia, acid reflux, chest pain or shortness of breath, or other significant associated symptoms. [facility] Medical History Back disorder Asthma Skin lesion Bilateral impacted cerumen Upper respiratory tract infection Acquired syphilis Screening for STD (sexually transmitted disease) Polyuria Penile discharge Lichenification Laboratory examination ordered as part of a routine general medical examination Tinea barbae Folliculitis GERD (gastroesophageal reflux disease) ETOH abuse Depression Anxiety Surgical History No pertinent past surgical history Family History Father Alcohol abuse Other Substance abuse Social History Housing: Apartment Alcohol intake: current Alcohol intake frequency: 3 or more drinks per day Alcohol type: beer and hard liquor Patient Tobacco Use Status: Former Tobacco user Cigarette Packs Per Day: 1 Years Smoked: 20 e-Cigarette/Vaping Use: Never Used Substance Use Type: Marijuana service: No Current occupational status: unemployed Current occupational exposures/hazards: No Cognitive needs: No Hearing needs: No Vision needs: No Review of Systems Const All systems reviewed & are unremarkable except as noted in HPI and below Physical Exam Vital Signs: Last Vital Signs Temp 98.0 F 08/11/24 11:12 Pulse 93 08/11/24 11:12 BP 118/86 08/11/24 11:12 Pulse Ox 100 08/11/24 11:12 Oxygen Delivery Method Room Air 08/11/24 11:12 BMI result Body Mass Index 22.0 Const General: cooperative, healthy appearing, comfortable, no acute distress, alert, awake, Physically active and well groomed; No anxious, diaphoretic, ill appearing, intoxicated appearing, poor hygiene or tired appearing Nutritional Appearance: average body habitus Orientation/consciousness: oriented to person Limitations: no limitations Chest Chest palpation & inspection: normal palpation of entire chest wall Resp Effort & Inspection: normal respiratory effort, able to speak in complete sentences, no audible wheezes, no cough, no grunting, not labored, no nasal flaring, no retractions and symmetric chest movement Auscultation: clear to auscultation bilaterally, no crackles, no rales, no rhonchi, no wheezes, lung sounds not diminished and No rub present Cardio Palpation: normal PMI Rate: regular rate Rhythm: regular rhythm Heart sounds: S1 normal heart sound present and S2 normal heart sound present GI Palpation (GI): Soft to palpation, Tenderness to palpation present (GI), no guarding, not rigid and Palpable mass present (Left inguinal hernia palpable, soft and mildly tender to palpation) Skin Other: Good color, warm and dry Neuro General: oriented to person Psych Appearance: grossly normal Mental Status: mental status grossly normal Speech and movement: Normal speech and movement present Affect: normal affect Attitude: cooperative Thought process: Normal thought process present Insight: Good insight present (Psych) Judgement: Good judgement present (Psych) Assessment & Plan Assessment & Plan (1) Left inguinal hernia: Code(s): K40.90 - Unilateral inguinal hernia, without obstruction or gangrene, not specified as recurrent Plan Patient is a 54-year-old male with history of alcohol and polysubstance abuse disorder, as well as COPD, who comes to the walk-in clinic complaining of acute left lower abdominal pain that started earlier today while he was driving. 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 He also does report that he coughs frequently with his COPD. His pain diminished while he was waiting to be seen here at the walk-in, however it does reoccur with palpation to the abdomen. He denies nausea vomiting diarrhea, fever chills, weakness or dizziness, anorexia, acid reflux, chest pain or shortness of breath, or other significant associated symptoms. On exam, he has an approximately 3 cm palpable left inguinal hernia, that is only mildly tender at this time, therefore I do not believe that it is strangulated/incarcerated. We did discuss that as he was severely symptomatic today, that he should be referred to general surgeon for evaluation and likely surgical repair. He sees Yanira jacobson RA out of the [place] office, and I told him I can send him a copy of this note so he will be aware of his visit at the walk-in today. We discussed that if symptoms were to come back severe again, and do not resolve with resting the abdomen, lying supine, gentle massage or heat to the area, that he should go to the emergency department for emergency Surgical evaluation. He was aware of this and agreed. Coding Level of Care Code Est Pt Level 4 (20860) Diagnoses Left inguinal hernia K40.90
--- OUTSIDE RECORDS SUMMARY | 2024-08-11 13:01 | XMS_ITS | Clinical Summary ---
Author Organization [facility] Address [address] [place] [address] Care Team Providers Care Research Professor Name Role Phone Unavailable Primary Care Provider Unavailabl e Source Comments PLEASE NOTE, if this patient is a minor, it may be UNLAWFUL to discuss sensitive information that is contained in these records (such as FAMILY PLANNING, MENTAL HEALTH or SUBSTANCE ABUSE) with the minor patient's parent or other person without the patient's specific authorization.[facility] Immunizations Immunization Administration Dates Next Due PFIZER COVID VACCINE, [...] Drug Screen 05/10/2023 Depression Annual Screen 05/10/2023 [id number] ( season) 2024 05/13/2021, 09/23/2020, 09/02/2020 Imm-Influenza (#1) 2024 04/10/2020 Insurance MEDICARE - [place]ICAID
== END 2024-08-11 12:40 | disposition home or self-care (01) ==
PROVIDERS: PCP Nurse Practitioner Family; Visit Provider Physician Assistant Medical
DX: K40.90 Unilateral inguinal hernia, without obstruction or gangrene, not specified as recurrent (principal)

== ENCOUNTER → 2024-08-11 11:09 | Outpatient (BNVA) | payer MEDICARE, MEDICAID, SELFPAY | PROVIDERS: PCP Nurse Practitioner Family; Visit Provider Physician Assistant Medical | DX: K40.90 Unilateral inguinal hernia, without obstruction or gangrene, not specified as recurrent (principal) | CPT/HCPCS: 99212 ==

== ENCOUNTER 2024-08-14 11:46 | Outpatient (AMB) | payer MEDICARE, MEDICAID, SELFPAY ==
--- NOTE | 2024-08-14 11:50 | MHC.OFFWIV ---
Intake Vital Signs 08/14/24 11:51 Height 6 ft Weight 166 lb BMI 22.5 BP 122/80 Blood Pressure Location Lt brachial Position Sitting Pulse 92 Pulse Source Pulse Oximeter Pulse Oximetry (%) 97 Oxygen Delivery Method Room Air Intake Visit Reasons: EP abdominal swelling Intake Note: Patient here for abdominal swelling that has been present since Wednesday. Patient Tobacco Use Status: Former Tobacco user Allergies penicillin V Allergy (Unknown, Verified 08/14/24 11:52) Nausea and Vomiting Penicillins [PENICILLINS] Allergy (Unknown, Verified 08/14/24 11:52) NAUSEA/VOMITING MUSCLE RELAXER Allergy (Unknown, Uncoded 08/14/24 11:52) FOAMING AT THE MOUTH - CANNOT REMEMBER NAME OF DRUG Do you need a note to return to daycare/school/sports/work: No HPI HPI Comments History of Present Illness Details History of Present Illness - The patient is a 54-year-old male presenting with a left inguinal hernia. - He first noticed left lower abdominal pain three days ago, starting the day after engaging in heavy lifting at work. - The pain extended to the left groin and scrotum but was not accompanied by systemic symptoms such as gastrointestinal distress or fever. - A 3 cm left inguinal hernia was noted during examination 3 days ago, which was mild or tender but reducible by the patient. - The patient returned for reevaluation after initially awaiting spontaneous resolution due to lack of understanding of the condition's persistence. - Despite morning discomfort, the hernia remained reducible, with the patient able to reposition it without pain. - patient declined a integrated circuit ic layout designer for the exam Physical Exam General: Cooperative, healthy appearing, comfortable, no acute distress and well developed Orientation: Patient oriented x3 Limitations: No limitations Head: Normal to inspection Ears: Hearing grossly normal bilaterally Nose: Normal External nose present Face and sinus: Normal facial exam Eyes: Appearance normal, both eyes and all related structures Neck: Normal visual inspection and Yes full ROM Respiratory: Normal respiratory effort and able to speak in complete sentences. : 3 cm palpable left inguinal hernia no TTP, easily reducible Skin: No rashes or lesions noted Neuro: Patient oriented x3 Extremities: normal to inspection [facility] Medical History Back disorder Asthma Skin lesion Bilateral impacted cerumen Upper respiratory tract infection Acquired syphilis Screening for STD (sexually transmitted disease) Polyuria Penile discharge Lichenification Laboratory examination ordered as part of a routine general medical examination Tinea barbae Folliculitis GERD (gastroesophageal reflux disease) ETOH abuse Depression Anxiety Surgical History No pertinent past surgical history Family History Father Alcohol abuse Other Substance abuse Social History Housing: Apartment Alcohol intake: current Alcohol intake frequency: 3 or more drinks per day Alcohol type: beer and hard liquor Patient Tobacco Use Status: Former Tobacco user Cigarette Packs Per Day: 1 Years Smoked: 20 e-Cigarette/Vaping Use: Never Used Substance Use Type: Marijuana service: No Current occupational status: unemployed Current occupational exposures/hazards: No Cognitive needs: No Hearing needs: No Vision needs: No Review of Systems Const All systems reviewed & are unremarkable except as noted in HPI and below Physical Exam Vital Signs: Last Vital Signs Pulse 92 08/14/24 11:51 BP 122/80 08/14/24 11:51 Pulse Ox 97 08/14/24 11:51 Oxygen Delivery Method Room Air 08/14/24 11:51 BMI result Body Mass Index 22.5 Assessment & Plan Assessment & Plan (1) Left inguinal hernia: Code(s): K40.90 - Unilateral inguinal hernia, without obstruction or gangrene, not specified as recurrent Plan: VSS, pt well appearing and PE remarkable for 3 cm left into bottle hernia which is reducible, no evidence of incarceration or strangulation. The left inguinal hernia remains reducible and is not presently an emergency concern, but its persistence and patient intolerance requires surgical referral for definitive management. The patient was informed about the hernia's nature, the risks of complications like incarceration or strangulation, and the fact that it would not resolve without surgery. A surgical referral was advised to explore surgical options, potential risks, benefits, and expected recovery. Educated patient on how to reduce the hernia. The patient was counseled to avoid heavy lifting and to monitor the hernia, going to the ED if it becomes irreducible, acutely painful and fever develops, or if other concerning symptoms develop. Patient was informed and verbally consented to the use of an ambient scribe for clinic note documentation during this visit. Coding Level of Care Code Est Pt Level 3 (95609) Diagnoses Left inguinal hernia K40.90
[2024-08-14 11:51] VITALS: BP 122/80; PULSE 92; O2SAT 97; BMI 22.5
--- OUTSIDE RECORDS SUMMARY | 2024-08-14 14:15 | XMS_ITS | Clinical Summary ---
Author Organization [facility] Address [address] [place] [address] Care Team Providers Care Shipping Lead Person Name Role Phone Unavailable Primary Care Provider [...] Health Maintenance Due Date Last Done Comments Anxiety Screening 1968 Diabetes Screening 1968 Hepatitis C Screening 1968 [...] 2013 Imm-Zoster, Recombinant (1 of 2) 2018 [id number] ( season) 2024 05/13/2021, 09/23/2020, 09/02/2020 Imm-Influenza (#1) 2024 04/10/2020 Alcohol and Drug Screen 05/10/2024 Depression Annual Screen 05/10/2024 [place]
== END 2024-08-14 12:45 | disposition home or self-care (01) ==
PROVIDERS: PCP Nurse Practitioner Family; Visit Provider Physician Assistant
DX: K40.90 Unilateral inguinal hernia, without obstruction or gangrene, not specified as recurrent (principal)

== ENCOUNTER → 2024-08-14 11:46 | Outpatient (BNVA) | payer MEDICARE, MEDICAID, SELFPAY | PROVIDERS: PCP Nurse Practitioner Family; Visit Provider Physician Assistant | DX: K40.90 Unilateral inguinal hernia, without obstruction or gangrene, not specified as recurrent (principal) | CPT/HCPCS: 99212 ==

== ENCOUNTER 2024-08-22 13:46 | Outpatient (AMB) | payer MEDICARE, MEDICAID, SELFPAY ==
--- NOTE | 2024-08-22 13:49 | A.OFFVIS_ITS ---
Vital Signs 08/22/24 13:57 Height 6 ft Weight 161 lb BMI 21.8 BP 135/86 Blood Pressure Location Rt brachial Position Sitting Pulse 94 Intake Visit Reasons: Unilateral inguinal hernia Intake Note: Patient referred by Dr. Echevarria for Unilateral inguinal hernia. Present for 2WK. Patient c/o: painful when walking. Foreclosure Field Inspector Required: No Accompanied by: spouse Beatris Allergies penicillin V Allergy (Unknown, Verified 08/22/24 13:54) Nausea and Vomiting Penicillins [PENICILLINS] Allergy (Unknown, Verified 08/22/24 13:54) NAUSEA/VOMITING MUSCLE RELAXER Allergy (Unknown, Uncoded 08/22/24 13:54) FOAMING AT THE MOUTH - CANNOT REMEMBER NAME OF DRUG HPI Comments Details: Patient presents with a several week history of a symptomatic left inguinal hernia. It has increased in size. He would like to have repaired. He does occasional strenuous activities. Tolerates his diet. Has regular bowel habits. Chart was reviewed and patient evaluated [facility] Medical History Back disorder Asthma Skin lesion Bilateral impacted cerumen Upper respiratory tract infection Acquired syphilis Screening for STD (sexually transmitted disease) Polyuria Penile discharge Lichenification Laboratory examination ordered as part of a routine general medical examination Tinea barbae Folliculitis GERD (gastroesophageal reflux disease) ETOH abuse Depression Anxiety Surgical History (Updated 08/22/24 @ 14:06 by Cricket Lozano MD) History of tonsillectomy No pertinent past surgical history Family History Father Alcohol abuse Other Substance abuse Social History Housing: Apartment Alcohol intake: current Alcohol intake frequency: 3 or more drinks per day Alcohol type: beer and hard liquor Patient Tobacco Use Status: Former Tobacco user Cigarette Packs Per Day: 1 Years Smoked: 20 e-Cigarette/Vaping Use: Never Used Substance Use Type: Marijuana service: No Current occupational status: unemployed Current occupational exposures/hazards: No Cognitive needs: No Hearing needs: No Vision needs: No Physical Exam Vital Signs: Last Vital Signs Pulse 94 08/22/24 13:57 BP 135/86 08/22/24 13:57 BMI result Body Mass Index 21.8 Const Other: Very pleasant man , anxious and apprehensive about being in the physician's office. He presents here with a significant other. Tall slender patient Chest Other: Chest breath sounds bilaterally, HS 1 in 2 GI Other: Patient was examined both supine and standing with Valsalva. Abdomen is soft, scaphoid, benign. Right groin negative. Genitalia within normal limits. Moderately sized reducible left inguinal hernia Assessment & Plan Assessment & Plan (1) Left inguinal hernia: Code(s): K40.90 - Unilateral inguinal hernia, without obstruction or gangrene, not specified as recurrent Category: Surgical Plan Risks, benefits, and alternatives of open left inguinal hernia repair with mesh were reviewed with the patient and included but not limited to bleeding, infection, recurrence, numbness, pain, scarring and the patient wished to proceed. All questions answered. Arrangements will be made for this on a day which is convenient for him. Coding Level of Care Code New Pt Level 5 (34462) Diagnoses Left inguinal hernia K40.90
[2024-08-22 13:57] VITALS: BP 135/86; PULSE 94; BMI 21.8
--- OUTSIDE RECORDS SUMMARY | 2024-08-22 16:55 | XMS_ITS | Clinical Summary ---
Author Organization [facility] Address [address] [place] [address] Care Team Providers Care Metal Mold Dresser Name Role Phone Unavailable Primary Care Provider [...] 2013 Imm-Zoster, Recombinant (1 of 2) 2018 [id number] ( season) 2024 05/13/2021, 09/23/2020, 09/02/2020 Imm-Influenza (#1) 2024 04/10/2020 Alcohol and Drug Screen 05/10/2024 Depression Annual Screen 05/10/2024 [place]
== END 2024-08-22 14:04 | disposition home or self-care (01) ==
LOC: HO.HGS 13:46
PROVIDERS: PCP Nurse Practitioner Family; Referring Provider Nurse Practitioner Family; Visit Provider Surgery
DX: K40.90 Unilateral inguinal hernia, without obstruction or gangrene, not specified as recurrent (principal)
CPT/HCPCS: 99204

== ENCOUNTER → 2024-08-22 13:46 | Outpatient (BNVA) | payer MEDICARE, MEDICAID, SELFPAY | PROVIDERS: PCP Nurse Practitioner Family; Referring Provider Nurse Practitioner Family; Visit Provider Surgery | DX: K40.90 Unilateral inguinal hernia, without obstruction or gangrene, not specified as recurrent (principal) | CPT/HCPCS: 99202 ==

== ENCOUNTER 2024-09-19 10:37 | Outpatient (AMB) | payer MEDICARE, MEDICAID, SELFPAY ==
--- NOTE | 2024-09-19 10:42 | A.OFFVIS_ITS ---
Vital Signs 09/19/24 10:50 Height 6 ft Weight 158 lb BMI 21.4 BP 132/89 Blood Pressure Location Rt brachial Position Sitting Pulse 88 Intake Visit Reasons: Dr. Lozano~ [facility] consult Intake Note: Patient last seen by Dr. Lozano on 08-22-2024. Patient scheduled to discuss Left inguinal hernia surgery. Patient c/o: pain with heavy lifting. Cut Off Machine Helper Required: No Accompanied by: spouse Kourtnie Allergies penicillin V Allergy (Unknown, Verified 09/19/24 10:48) Nausea and Vomiting Penicillins [PENICILLINS] Allergy (Unknown, Verified 09/19/24 10:48) NAUSEA/VOMITING MUSCLE RELAXER Allergy (Unknown, Uncoded 09/19/24 10:48) FOAMING AT THE MOUTH - CANNOT REMEMBER NAME OF DRUG Medication List - Last Reconciled 09/19/24 by Jay Briones MD albuterol sulfate 2.5 mg (3 mL) inhalation Q4-6H PRN albuterol sulfate 90 mcg/actuation (Ventolin HFA) 2 puffs inhalation Q4-6H PRN fluticasone furoate 100 mcg/actuation (Arnuity Ellipta) 1 inh inhalation BID omeprazole 20 mg PO DAILY [address] Lozano~ [facility] consult: Details: 54-year-old male referred for a left inguinal hernia. He had been previously seen by Dr. Lozano for this. He has had this reducible bulge on his left groin area for over 2 months now. He says that this has been getting uncomfortable. He says that this seems to be bigger as well. He denies GI complaints He has a known history of alcohol abuse and is an ex-smoker. He does state that he does not drink alcohol was much anymore but does engage in bingeing whenever he is depressed. He says he feels well overall. [facility] Medical History Back disorder Asthma Skin lesion Bilateral impacted cerumen Upper respiratory tract infection Acquired syphilis Screening for STD (sexually transmitted disease) Polyuria Penile discharge Lichenification Laboratory examination ordered as part of a routine general medical examination Tinea barbae Folliculitis GERD (gastroesophageal reflux disease) ETOH abuse Depression Anxiety Surgical History History of tonsillectomy No pertinent past surgical history Family History Father Alcohol abuse Other Substance abuse Social History Housing: Apartment Alcohol intake: current Alcohol intake frequency: 3 or more drinks per day Alcohol type: beer and hard liquor Patient Tobacco Use Status: Former Tobacco user Cigarette Packs Per Day: 1 Years Smoked: 20 e-Cigarette/Vaping Use: Never Used Substance Use Type: Marijuana service: No Current occupational status: unemployed Current occupational exposures/hazards: No Cognitive needs: No Hearing needs: No Vision needs: No Review of Systems Const Denies chills and Denies fever(s) Card Denies chest pain, Denies dyspnea and Denies dyspnea on exertion Resp Denies cough, Denies dyspnea and Denies dyspnea on exertion GI Denies hematochezia and Denies change in bowel habits Denies hematuria and Denies difficulty urinating Musc Denies back pain and Denies limited range of motion Neuro Denies focal weakness and Denies convulsions Psych Reports anxiety, Reports depression and Reports mood swings Physical Exam Vital Signs: Last Vital Signs Pulse 88 09/19/24 10:50 BP 132/89 09/19/24 10:50 BMI result Body Mass Index 21.4 Const General: comfortable and no acute distress Orientation/consciousness: patient oriented x3 Neck Neck: Yes no lymphadenopathy Resp Auscultation: clear to auscultation bilaterally Cardio Rhythm: regular rhythm GI Other: Large reducible mass in the left groin consistent with a left inguinal hernia, nontender Palpation (GI): Soft to palpation, nontender and no guarding Neuro General: patient oriented x3 Assessment & Plan Assessment & Plan (1) Left inguinal hernia: Code(s): K40.90 - Unilateral inguinal hernia, without obstruction or gangrene, not specified as recurrent Category: Medical Plan: I explained to him the technique of repair of the left inguinal hernia with mesh. I reviewed the risks including but not limited to bleeding, infections, injury to other organs including bowel, vas deferens, testicle, recurrence, postop pain, as well as the benefits and alternatives. I reviewed with him what to expect postoperatively. He has given consent His records show that he has a diagnosis of COPD but he says he has not smoked a cigarette in years. He admits to smoking marijuana. He also has a history of alcohol abuse. He says that he does not drink alcohol regularly. He says he does resort to heavy drinking whenever he is depressed. He says he is to see his primary care physician this week for medical evaluation prior to the surgery. Coding Level of Care Code Est Pt Level 3 (42400) Diagnoses Left inguinal hernia K40.90
[2024-09-19 10:50] VITALS: BP 132/89; PULSE 88; BMI 21.4
--- OUTSIDE RECORDS SUMMARY | 2024-09-19 11:49 | XMS_ITS | Clinical Summary ---
Author Organization [facility] Address [address] [place] [address] Care Team Providers Care Materials Handler Name Role Phone Unavailable Primary Care Provider [...] 2013 Imm-Zoster, Recombinant (1 of 2) 2018 [id number] ( season) 2024 05/13/2021, 09/23/2020, 09/02/2020 Imm-Influenza (#1) 2024 04/10/2020 Alcohol and Drug Screen 05/10/2024 Depression Annual Screen 05/10/2024 [place]
== END 2024-09-19 11:00 | disposition home or self-care (01) ==
LOC: HO.HGS 10:38
PROVIDERS: PCP Nurse Practitioner Family; Visit Provider Surgery
DX: K40.90 Unilateral inguinal hernia, without obstruction or gangrene, not specified as recurrent (principal)
CPT/HCPCS: 99213

== ENCOUNTER → 2024-09-19 10:37 | Outpatient (BNVA) | payer MEDICARE, MEDICAID, SELFPAY | PROVIDERS: PCP Nurse Practitioner Family; Visit Provider Surgery | DX: K40.90 Unilateral inguinal hernia, without obstruction or gangrene, not specified as recurrent (principal) | CPT/HCPCS: 99212 ==

== ENCOUNTER 2024-09-22 13:38 | Outpatient (AMB) | payer MEDICARE, MEDICAID, SELFPAY ==
--- OUTSIDE RECORDS SUMMARY | 2024-09-22 13:42 | XMS_ITS | Clinical Summary ---
Author Organization [facility] Address [address] [place] [address] Care Team Providers Care Electronic Intelligence Officer Name Role Phone Unavailable Primary Care Provider [...] 2013 Imm-Zoster, Recombinant (1 of 2) 2018 [id number] ( season) 2024 05/13/2021, 09/23/2020, 09/02/2020 Imm-Influenza (#1) 2024 04/10/2020 Alcohol and Drug Screen 05/10/2024 Depression Annual Screen 05/10/2024 [place]
[2024-09-22 13:45] VITALS: BP 102/64; PULSE 81; O2SAT 97; BMI 21.2
--- NOTE | 2024-09-22 13:45 | MHC.OFFVIS ---
Vital Signs 09/22/24 13:45 Height 6 ft Weight 156 lb 8 oz BMI 21.2 BP 102/64 Blood Pressure Location Lt brachial Position Sitting Pulse 81 Pulse Source Pulse Oximeter Pulse Oximetry (%) 97 Oxygen Delivery Method Room Air Intake Visit Reasons: Asthma/Pre Op Hernia Repair ([facility]) Allergies penicillin V Allergy (Unknown, Verified 09/22/24 13:47) Nausea and Vomiting Penicillins [PENICILLINS] Allergy (Unknown, Verified 09/22/24 13:47) NAUSEA/VOMITING MUSCLE RELAXER Allergy (Unknown, Uncoded 09/22/24 13:47) FOAMING AT THE MOUTH - CANNOT REMEMBER NAME OF DRUG HPI HPI Asthma/Pre Op Hernia Repair ([facility]): Details: Scott is a pleasant 54 year old male, former 20 pack year smoker, with underlying asthma, GERD, ETOH abuse. He was referred by PCP for pulmonary evaluation and preoperative evaluation for upcoming hernia repair. He reports symptoms are mild with intermittent dyspnea and dry cough, using Flovent and albuterol MDI occasionally. Of note, patient had inhalers at visit, both 2+ years ago. He did have a recent rx of Arnuity placed however patient states inhaler was not functioning. He reports asthma dx as an adult, never requiring intubation. Denies h/o recurrent or recent respiratory infections. Denies prior need for supplemental oxygen. He denies seasonal allergies. He has two parrots at home. He denies occupational exposures. Denies any pertinent family history. [facility] Medical History Back disorder Asthma Skin lesion Bilateral impacted cerumen Upper respiratory tract infection Acquired syphilis Screening for STD (sexually transmitted disease) Polyuria Penile discharge Lichenification Laboratory examination ordered as part of a routine general medical examination Tinea barbae Folliculitis GERD (gastroesophageal reflux disease) ETOH abuse Depression Anxiety Surgical History History of tonsillectomy No pertinent past surgical history Family History Father Alcohol abuse Other Substance abuse Social History Housing: Apartment Alcohol intake: current Alcohol intake frequency: 3 or more drinks per day Alcohol type: beer and hard liquor Patient Tobacco Use Status: Former Tobacco user Cigarette Packs Per Day: 1 Years Smoked: 20 e-Cigarette/Vaping Use: Never Used Substance Use Type: Marijuana service: No Current occupational status: unemployed Current occupational exposures/hazards: No Cognitive needs: No Hearing needs: No Vision needs: No Review of Systems Const Denies chills, Denies excessive sweating, Denies fever(s), Denies headache(s) and Denies night sweats Eyes Denies dry eyes, Denies irritation and Denies itchy eyes ENT Reports Normal hearing present, Denies headache(s), Denies nasal congestion, Denies nasal discharge, Denies post nasal drip and Denies sore throat Card Denies chest pain, Denies chest pain at rest, Denies chest pain with activity, Denies claudication, Denies leg edema, Denies dyspnea, Denies orthopnea and Denies paroxysmal nocturnal dyspnea Resp Denies chest congestion, Denies excessive phlegm production, Denies pain on inspiration, Denies pain with cough, Denies dyspnea, Denies stridor and Denies wheezing Musc Denies myalgias Neuro Reports Normal hearing present and Denies headache(s) Endo Denies excessive sweating Joshua/Lymph Denies lymphadenopathy Aller/Immun Denies itchy eyes, Denies seasonal rhinorrhea and Denies wheezing Physical Exam Vital Signs: Last Vital Signs Pulse 81 09/22/24 13:45 BP 102/64 09/22/24 13:45 Pulse Ox 97 09/22/24 13:45 Oxygen Delivery Method Room Air 09/22/24 13:45 BMI result Body Mass Index 21.2 Const General: cooperative, healthy appearing, comfortable, no acute distress, well developed and alert Orientation/consciousness: patient oriented x3 Limitations: no limitations HEENT Head: Yes normal to inspection, Yes normocephalic and Yes atraumatic Ears: hearing grossly normal bilaterally and external ears normal Eyes General: appearance normal, both eyes and all related structures Eyelids: Yes eyelids normal Sclerae: sclerae normal EOM: EOMs intact bilaterally Neck Neck: Yes normal visual inspection and Yes no lymphadenopathy Lymphatic: no lymphadenopathy noted Chest Chest palpation & inspection: normal inspection of the chest Resp Effort & Inspection: normal respiratory effort, able to speak in complete sentences, no audible wheezes, no cough, no stridor, not tachypneic, no tripod positioning and no use of accessory muscles Auscultation: clear to auscultation bilaterally Cardio Jugular venous distension: no JVD Rate: regular rate Rhythm: regular rhythm Skin Other: warm, dry General skin exam: no rashes or lesions noted Neuro General: patient oriented x3 Cranial nerves: Yes Normal hearing present Cognition (Neuro): normal cognition Gait exam (Neuro): Normal gait present Extrem General: Yes normal to inspection, Yes capillary refill normal, Yes no clubbing, cyanosis or edema and Yes no pedal edema Psych Appearance: grossly normal and well kempt Speech and movement: Normal speech and movement present and Clear speech present Affect: normal affect Attitude: cooperative Thought process: Normal thought process present Thought content: Normal thought content present Insight: Good insight present (Psych) Judgement: Good judgement present (Psych) Assessment & Plan Assessment & Plan (1) Asthma: Code(s): J45.909 - Unspecified asthma, uncomplicated Category: Medical (2) Personal history of tobacco use: Code(s): Z87.891 - Personal history of nicotine dependence Category: Social Hx Plan Scott presents for pulmonary evaluation for known history of asthma and for preoperative evaluation for upcoming hernia repair, not scheduled at this time. Will send for PFT and CXR to further risk stratify. Will have chest CT scheduled given smoking history. Discussed importance of compliance with medication regimen, will send in Alvesco and refill albuterol MDI. Discussed importance of good oral hygiene to prevent thrush. All questions were answered and patient is in agreement of plan. Will follow up to review results or sooner if needed. Orders: Orders XR chest 2V 09/22/24 R05.9 - Cough, unspecified PFT pulmonary function test 09/22/24 J45.909 - Unspecified asthma, uncomplicated CT chest wo IV con Today Z87.891 - Personal history of nicotine dependence Medications: New ciclesonide 80 mcg/actuation (Alvesco) 1 puff inhalation BID 6.1 grams 4RF Refilled albuterol sulfate 90 mcg/actuation (Ventolin HFA) 2 puffs inhalation Q4-6H PRN 8.5 grams 3RF shortness of breath or wheezing Coding Level of Care Code New Pt Level 4 (01749) Diagnoses Asthma J45.909 Personal history of tobacco use Z87.891
== END 2024-09-22 14:15 | disposition home or self-care (01) ==
LOC: HO.HPSW 13:39
PROVIDERS: PCP Nurse Practitioner Family; Visit Provider Nurse Practitioner Family
DX: J45.909 Unspecified asthma, uncomplicated (principal); Z87.891 Personal history of nicotine dependence
CPT/HCPCS: 99204

== ENCOUNTER → 2024-09-22 13:38 | Outpatient (BNVA) | payer MEDICARE, MEDICAID, SELFPAY | PROVIDERS: PCP Nurse Practitioner Family; Visit Provider Nurse Practitioner Family | DX: J45.909 Unspecified asthma, uncomplicated (principal); Z87.891 Personal history of nicotine dependence | CPT/HCPCS: 99202 ==

== ENCOUNTER 2024-09-28 12:31 | Outpatient (AMB) | payer MEDICARE, MEDICAID, SELFPAY ==
--- OUTSIDE RECORDS SUMMARY | 2024-09-28 12:36 | XMS_ITS | Clinical Summary ---
Author Organization [facility] Address [address] [place] [address] Care Team Providers Care Chemical Economist Name Role Phone Unavailable Primary Care Provider [...] 2013 Imm-Zoster, Recombinant (1 of 2) 2018 [id number] ( season) 2024 05/13/2021, 09/23/2020, 09/02/2020 Imm-Influenza (#1) 2024 04/10/2020 Alcohol and Drug Screen 05/10/2024 Depression Annual Screen 05/10/2024 [place]
[2024-09-28 14:26] VITALS: BP 130/90; PULSE 73; O2SAT 97
--- NOTE | 2024-09-28 14:26 | AM.OFFWIN_ITS ---
Intake Vital Signs 3 09/28/24 14:26 Weight 159 lb BP 130/90 H Blood Pressure Location Rt brachial Position Sitting Pulse 73 Pulse Source Pulse Oximeter Pulse Oximetry (%) 97 Oxygen Delivery Method Room Air Intake Visit Reasons: EP pain & rash on LT arm- [phone] Intake Note: Patient here for rash on bilat arms that started about 1 week ago. Patient Tobacco Use Status: Former Tobacco user Allergies penicillin V Allergy (Unknown, Verified 09/28/24 14:28) Nausea and Vomiting Penicillins [PENICILLINS] Allergy (Unknown, Verified 09/28/24 14:28) NAUSEA/VOMITING MUSCLE RELAXER Allergy (Unknown, Uncoded 09/28/24 14:28) FOAMING AT THE MOUTH - CANNOT REMEMBER NAME OF DRUG HPI HPI Comments 2 History of Present Illness0 Details 54 y/o Male patient who presents to the walk in clinic with c/o Very Itchy rash located on his Torso and upper extremities. Pt reports that about 1 week ago he was trimming some of his Bushes and believes he might have encountered some plant ?Poison Linette. [facility] Medical History (Updated 09/28/24 @ 15:11 by Rosa sIela Lee NP) Rash and nonspecific skin eruption Back disorder Asthma Skin lesion Bilateral impacted cerumen Upper respiratory tract infection Acquired syphilis Screening for STD (sexually transmitted disease) Polyuria Penile discharge Lichenification Laboratory examination ordered as part of a routine general medical examination Tinea barbae Folliculitis GERD (gastroesophageal reflux disease) ETOH abuse Depression Anxiety Surgical History History of tonsillectomy No pertinent past surgical history Family History Father Alcohol abuse Other Substance abuse Social History Housing: Apartment Alcohol intake: current Alcohol intake frequency: 3 or more drinks per day Alcohol type: beer and hard liquor Patient Tobacco Use Status: Former Tobacco user Cigarette Packs Per Day: 1 Years Smoked: 20 e-Cigarette/Vaping Use: Never Used Substance Use Type: Marijuana service: No Current occupational status: unemployed Current occupational exposures/hazards: No Cognitive needs: No Hearing needs: No Vision needs: No Review of Systems Const All systems reviewed & are unremarkable except as noted in HPI and below Physical Exam Vital Signs: Last Vital Signs Pulse 73 09/28/24 14:26 BP 130/90 H 09/28/24 14:26 Pulse Ox 97 09/28/24 14:26 Oxygen Delivery Method Room Air 09/28/24 14:26 Const General: no acute distress Nutritional Appearance: well nourished Orientation/consciousness: patient oriented x3 Skin Full body images: 2 1. Macular Papular Erythematous rash back, torso and upper extremities. 2. Macular Papular Erythematous rash back, torso and upper extremities. Neuro General: patient oriented x3, gait normal and moves all extremities Psych Speech and movement: Normal speech and movement present Assessment & Plan Assessment & Plan (1) Rash and nonspecific skin eruption: Code(s): R21 - Rash and other nonspecific skin eruption Plan: Ordered Oral and Topical steroids. Medications: New 2 betamethasone dipropionate 0.05% 1 appl topical BID 60 mL 1RF 14 days R21 - Rash and other nonspecific skin eruption hydroxyzine HCl 25 mg PO BID PRN 20 tabs 0RF itching R21 - Rash and other nonspecific skin eruption prednisone 20 mg PO DAILY 7 tabs 0RF R21 - Rash and other nonspecific skin eruption Coding Level of Care Code Est Pt Level 4 (04767) Diagnoses Rash and nonspecific skin eruption R21 Time Spent (min) 20
== END 2024-09-28 16:05 | disposition home or self-care (01) ==
PROVIDERS: PCP Nurse Practitioner Family; Visit Provider Nurse Practitioner Family
DX: R21 Rash and other nonspecific skin eruption (principal)

== ENCOUNTER → 2024-09-28 12:31 | Outpatient (BNVA) | payer MEDICARE, MEDICAID, SELFPAY | PROVIDERS: PCP Nurse Practitioner Family; Visit Provider Nurse Practitioner Family | DX: Z13.89 Encounter for screening for other disorder (principal) ==

== ENCOUNTER 2024-09-28 12:37 | Outpatient (REF) | payer MEDICARE, MEDICAID, SELFPAY | END 2024-09-28 12:38 | disposition home or self-care (01) | LOC: HO.HMGCLDS 12:37 | DX: R21 Rash and other nonspecific skin eruption (principal) | CPT/HCPCS: 99212 ==

== ENCOUNTER 2024-10-03 09:36 | Outpatient (REF) | payer MEDICARE, MEDICAID, SELFPAY ==
--- OUTSIDE RECORDS SUMMARY | 2024-10-03 10:12 | XMS_ITS | Clinical Summary ---
Author Organization [facility] Address [address] [place] [address] Care Team Providers Care Brick Mason Name Role Phone Unavailable Primary Care Provider [...] 2013 Imm-Zoster, Recombinant (1 of 2) 2018 [id number] ( season) 2024 05/13/2021, 09/23/2020, 09/02/2020 Imm-Influenza (#1) 2024 04/10/2020 Alcohol and Drug Screen 05/10/2024 Depression Annual Screen 05/10/2024 [place]
== END 2024-10-03 09:37 | disposition home or self-care (01) ==
LOC: HO.HMGCLDS 09:36
PROVIDERS: PCP Nurse Practitioner Family; Visit Provider Nurse Practitioner Family
DX: Z13.89 Encounter for screening for other disorder (principal)

== ENCOUNTER 2024-10-05 11:38 | Outpatient (REF) | payer MEDICARE, MEDICAID, SELFPAY ==
--- NOTE | ~2024-10-05 | XR_ITS ---
EXAMINATION: XR CHEST CLINICAL INFORMATION: R05.9 - Cough, unspecified COMPARISON: None available. TECHNIQUE: 2 views of the chest were obtained. FINDINGS: No significant abnormality is noted involving the heart, lungs, mediastinum, bony thorax or soft tissues. XR/XR chest 2V IMPRESSION: Unremarkable chest examination. Electronically signed by: Wayne Kirk MD 10/05/2024 01:54 PM EDT RP
--- NOTE | 2024-10-05 11:39 | PFT_ITS ---
Indication: Asthma Spirometry [FEV1 to FVC 67%; FEV1 3.84 L; FVC 5.69 L. No significant response to bronchodilators noted] Lung Volumes [Total lung capacity 110% predicted; residual volume 126% predicted] Diffusion Capacity [DLCO 77% predicted] Comparisons [none] Interpretation [There is an obstructive ventilatory defect consistent with mild COPD. No significant response to bronchodilators noted. Lung volumes with a trend of hyperinflation significant air trapping due to the obstructive airway disease. The patient has a mild diffusion impairment.] MTDD
--- OUTSIDE RECORDS SUMMARY | 2024-10-05 11:56 | XMS_ITS | Clinical Summary ---
Author Organization [facility] Address [address] [place] [address] Care Team Providers Care Perinatal Coordinator Name Role Phone Unavailable Primary Care Provider [...] 2013 Imm-Zoster, Recombinant (1 of 2) 2018 [id number] ( season) 2024 05/13/2021, 09/23/2020, 09/02/2020 Imm-Influenza (#1) 2024 04/10/2020 Alcohol and Drug Screen 05/10/2024 Depression Annual Screen 05/10/2024 [place]
== END 2024-10-05 11:39 | disposition home or self-care (01) ==
LOC: HO.RESP 11:38
PROVIDERS: PCP Nurse Practitioner Family; Visit Provider Nurse Practitioner Family
DX: Z01.811 Encounter for preprocedural respiratory examination (principal); J45.909 Unspecified asthma, uncomplicated; R05.9 Cough, unspecified
CPT/HCPCS: 71046; 94010; 94640; 94727; 94729

== ENCOUNTER → 2024-10-05 11:39 | Outpatient (BNV) | payer MEDICARE, MEDICAID, SELFPAY | PROVIDERS: PCP Nurse Practitioner Family; Visit Provider Hospitalist | DX: J45.909 Unspecified asthma, uncomplicated (principal) | CPT/HCPCS: 94060; 94727; 94729 ==

== ENCOUNTER → 2024-10-05 12:19 | Outpatient (BNV) | payer MEDICARE, MEDICAID, SELFPAY | PROVIDERS: PCP Nurse Practitioner Family; Visit Provider Radiology Diagnostic Radiology | DX: R05.9 Cough, unspecified (principal) | CPT/HCPCS: 71046 ==

== ENCOUNTER 2024-10-17 13:39 | Outpatient (REF) | payer MEDICARE, MEDICAID, SELFPAY ==
--- OUTSIDE RECORDS SUMMARY | 2024-10-17 16:09 | XMS_ITS | Clinical Summary ---
Author Organization [facility] Address [address] [place] [address] Care Team Providers Care Kiln Furniture Saw Tender Name Role Phone Unavailable Primary Care Provider [...] 2013 Imm-Zoster, Recombinant (1 of 2) 2018 [id number] ( season) 2024 05/13/2021, 09/23/2020, 09/02/2020 Imm-Influenza (#1) 2024 04/10/2020 Alcohol and Drug Screen 05/10/2024 Depression Annual Screen 05/10/2024 [place]
[2024-10-17 16:43] LABS: Alanine Aminotransferase 37 U/L (0-40); Albumin Level 4.1 g/dL (3.5-5.0); Alkaline Phosphatase 119 U/L (39-117); Aspartate Amino Transferase 49 U/L (5-37); Bilirubin Direct 0.2 mg/dL (0.0-0.5); Bilirubin Total 0.4 mg/dL (0.0-1.0); Cholesterol 215 mg/dL (<200); HDL Cholesterol 75 mg/dL (>40); Iron 88 mcg/dL (45-160); LDL Cholesterol Calculated 127 mg/dL (<100); Percent Iron Saturation 28 % (15-50); Total Iron Binding Capacity 312 mcg/dL (228-428); Total Protein 7.1 g/dL (6.5-8.0); Triglycerides 69 mg/dL (<150); Unsaturated Iron Binding 224 ug/dL
[2024-10-17 17:01] LABS: Ferritin 199 ng/mL (20-250)
[2024-10-17 17:05] LABS: Folate 6.7 ng/mL (> or = 4.0); Vitamin B12 367 pg/mL (200-900)
[2024-10-18 08:34] LABS: HBS Num1 0.85 mIU/mL (0-7.99); HBc Num1 0.05 S/CO (0.00-0.79); HBsAGNum1 0.46 S/CO (0.00-0.99); Hepatitis B Core Antibody Nonreactive (Nonreactive); Hepatitis B Surface Antigen Negative (Negative); ~Hepatitis B Surface Antibody NONREACTIVE (Nonreactive); ~Hepatitis C Antibody Nonreactive (Nonreactive)
== END 2024-10-17 13:40 | disposition home or self-care (01) ==
LOC: HO.HMGCLDS 13:39
PROVIDERS: PCP Nurse Practitioner Family; Visit Provider Nurse Practitioner Family
DX: E78.5 Hyperlipidemia, unspecified (principal); D50.9 Iron deficiency anemia, unspecified; D72.819 Decreased white blood cell count, unspecified; R74.01 Elevation of levels of liver transaminase levels; A53.0 Latent syphilis, unspecified as early or late
CPT/HCPCS: 36415; 80061; 80076; 82607; 82728; 82746; 83540; 86704; 86706; 86803; 87340

== ENCOUNTER 2024-10-19 12:56 | Outpatient (AMB) | payer OTHER, MEDICARE, MEDICAID, SELFPAY ==
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
[2024-10-19 13:06] VITALS: BP 128/70; PULSE 95; O2SAT 96; BMI 21.3
--- OUTSIDE RECORDS SUMMARY | 2024-10-19 14:58 | XMS_ITS | Clinical Summary ---
Author Organization [facility] Address [address] [place] [address] Care Team Providers Care Structures Technician Name Role Phone Unavailable Primary Care Provider [...] 2013 Imm-Zoster, Recombinant (1 of 2) 2018 [id number] ( season) 2024 05/13/2021, 09/23/2020, 09/02/2020 Imm-Influenza (#1) 2024 04/10/2020 Alcohol and Drug Screen 05/10/2024 Depression Annual Screen 05/10/2024 [place]
== END 2024-10-19 14:03 | disposition home or self-care (01) ==
PROVIDERS: PCP Nurse Practitioner Family; Visit Provider Physician Assistant
DX: M54.50 Low back pain, unspecified (principal); V89.2XXA Person injured in unspecified motor-vehicle accident, traffic, initial encounter; Z04.3 Encounter for examination and observation following other accident

== ENCOUNTER → 2024-10-19 12:56 | Outpatient (BNVA) | payer OTHER, MEDICARE, MEDICAID, SELFPAY | PROVIDERS: PCP Nurse Practitioner Family; Visit Provider Physician Assistant | DX: Z13.89 Encounter for screening for other disorder (principal) ==

== ENCOUNTER 2024-10-25 15:28 | Outpatient (AMB) | payer OTHER, MEDICARE, MEDICAID, SELFPAY ==
[2024-10-25 15:30] VITALS: BP 110/76; PULSE 95; TEMP 36.7; O2SAT 97; BMI 20.7
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
== END 2024-10-25 16:16 | disposition home or self-care (01) ==
PROVIDERS: PCP Nurse Practitioner Family; Visit Provider Physician Assistant
DX: M79.18 Myalgia, other site (principal); M54.50 Low back pain, unspecified; Z04.3 Encounter for examination and observation following other accident; V89.2XXA Person injured in unspecified motor-vehicle accident, traffic, initial encounter

== ENCOUNTER → 2024-10-25 15:28 | Outpatient (BNVA) | payer OTHER, MEDICARE, MEDICAID, SELFPAY | PROVIDERS: PCP Nurse Practitioner Family; Visit Provider Physician Assistant ==

== ENCOUNTER 2024-11-16 06:29 | Day surgery (SDC) | payer MEDICARE, MEDICAID, SELFPAY ==
--- OUTSIDE RECORDS SUMMARY | 2024-10-25 15:26 | XMS_ITS | Clinical Summary ---
Author Organization [facility] Address [address] [place] [address] Care Team Providers Care Crystal Evaluator Name Role Phone Unavailable Primary Care Provider [...] 2013 Imm-Zoster, Recombinant (1 of 2) 2018 [id number] ( season) 2024 05/13/2021, 09/23/2020, 09/02/2020 Imm-Influenza (#1) 2024 04/10/2020 Alcohol and Drug Screen 05/10/2024 Depression Annual Screen 05/10/2024 [place]
[2024-11-09 12:19] VITALS: BP 103/70; PULSE 86; RESP 16; O2SAT 97; BMI 23.0
--- NOTE | 2024-11-09 12:51 | HO.ANESPROP2 ---
Documented by User: Chica Crocker NP 11/09/24 13:02 HPI - Anesthesia Eval Consult details Narrative: 54yo M for Left Hernia Inguinal Reducible, 11/16/24 Pulmo optimized. [place] [facility] [place]: Patient's CXR unremarkable, PFT revealed mild COPD with mild decrease in DLCO. At this time, patient reports respiratory symptoms are infrequent using ICS and albuterol with good effect. 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 ppi ~ 2 x's weekly PMFSH Active Problems Active Problems: All Active Problems Bilateral low back pain (Acute) Personal history of tobacco use (Acute) Cough (Acute) Left inguinal hernia (Acute) Left inguinal hernia (Acute) Normocytic anemia (Acute) Leukopenia (Acute) Transaminitis (Acute) Hyperlipidemia (Acute) Alcohol use disorder (Acute) Screening PSA (prostate specific antigen) (Acute) Laboratory tests ordered as part of a complete physical exam (CPE) (Acute) Colon cancer screening (Acute) Arthritis of both hands (Acute) Normal physical examination, routine (Acute) Positive serology for syphilis (Acute) Sexually transmitted disease exposure (Acute) COPD (chronic obstructive pulmonary disease) (Acute) Alcohol use disorder, severe, dependence (Acute) Substance use disorder (Acute) Gout (Acute) Rash and nonspecific skin eruption (Acute) GERD (gastroesophageal reflux disease) (Acute) Asthma (Acute) ETOH abuse (Acute) Past Medical History Medical History Cocaine abuse Back pain Arthritis History of headache Numbness Wheezing Rash and nonspecific skin eruption Back disorder Asthma Skin lesion Bilateral impacted cerumen Upper respiratory tract infection Acquired syphilis Screening for STD (sexually transmitted disease) Polyuria Penile discharge Lichenification Laboratory examination ordered as part of a routine general medical examination Tinea barbae Folliculitis GERD (gastroesophageal reflux disease) ETOH abuse Depression Anxiety Family History Family History Father Alcohol abuse Other Substance abuse Surgical History Surgical History Hx of tooth extraction History of tonsillectomy No pertinent past surgical history Social History Social History Housing: Apartment Alcohol intake: current Alcohol intake frequency: 3 or more drinks per day Alcohol type: beer and hard liquor Patient Tobacco Use Status: Former Tobacco user Cigarette Packs Per Day: 1 Years Smoked: 20 e-Cigarette/Vaping Use: Never Used Use of substances other than those prescribed or required for medical reasons: Yes Substance Use Type: Marijuana Substance Use Frequency: Occasionally Have you been hit, kicked, punched, or otherwise hurt by someone within the past year? If so, by whom?: No Are you DNR?: No Advance Directives: No Advance Directives Information Provided: Yes Advance Directives on File: No Poor oral hygiene: Yes service: No Current occupational status: unemployed Current occupational exposures/hazards: No Cognitive needs: No Hearing needs: No Vision needs: No Meds Allergies Allergy/AdvReac Type Severity Reaction Status Date / Time penicillin V Allergy Unknown Nausea and Verified 10/25/24 15:36 Vomiting Penicillins (PENICILLINS) Allergy Unknown NAUSEA/VOMI Verified 10/25/24 15:36 TING MUSCLE RELAXER Allergy Unknown FOAMING AT Uncoded 10/19/24 13:07 THE MOUTH - CANNOT REMEMBER NAME OF DRUG Home Medications ?Medication ?Instructions ?Recorded ?Confirmed ?Last Taken ?Type omeprazole 20 mg capsule,delayed 20 mg PO DAILY PRN Acid Reflux 11/09/24 11/16/24 11/15/24 08:00 History release Exam Height,Weight and Vital Signs: Height 5 ft 9 in Weight 70.76 kg Last Vital Signs Pulse 86 11/09/24 12:19 Resp 16 11/09/24 12:19 BP 103/70 11/09/24 12:19 Pulse Ox 97 11/09/24 12:19 O2 Del Method Room Air 11/09/24 12:19 Pertinent Lab Results Pertinent Lab Results: Laboratory Tests 07/31/24 14:01 WBC 3.5 L Hgb 13.5 L Hct 40.5 L Plt Count 357 Sodium 139 Potassium 4.2 Chloride 106 Carbon Dioxide 25 BUN 10 Creatinine 0.80 Narrative Narrative: EKG 2023 Vent. Rate : 069 BPM Atrial Rate : 069 BPM P-R Int : 144 ms QRS Dur : 090 ms QT Int : 406 ms P-R-T Axes : 066 070 051 degrees QTc Int : 435 ms Normal sinus rhythm Normal ECG When compared with ECG of 04-NOV-2021 21:27, No significant change was found Airway Mallampati Class: II TM Dist: >3cm Neck ROM: Full Denture: Upper Loose/Missing/Broken Teeth: Yes (missing throughout) Heart: RRR Lungs: CTAB Assessment and Plan Assessment Anesthesia Assessment: Anesthesia Plan Discussed, Smoking Cess. Discussed and PAT Visit Documented by User: Antonia Sharp MD 11/16/24 08:21 PMFSH Past Medical History Medical History Cocaine abuse Back pain Arthritis History of headache Numbness Wheezing Rash and nonspecific skin eruption Back disorder Asthma Skin lesion Bilateral impacted cerumen Upper respiratory tract infection Acquired syphilis Screening for STD (sexually transmitted disease) Polyuria Penile discharge Lichenification Laboratory examination ordered as part of a routine general medical examination Tinea barbae Folliculitis GERD (gastroesophageal reflux disease) ETOH abuse Depression Anxiety Family History Family History Father Alcohol abuse Other Substance abuse Family history of problems with anesthesia: No Surgical History Surgical History Hx of tooth extraction History of tonsillectomy No pertinent past surgical history History of Problems with Anesthesia: No Social History Social History Housing: Apartment Alcohol intake: current Alcohol intake frequency: 3 or more drinks per day Alcohol type: beer and hard liquor Patient Tobacco Use Status: Former Tobacco user Cigarette Packs Per Day: 1 Years Smoked: 20 e-Cigarette/Vaping Use: Never Used Use of substances other than those prescribed or required for medical reasons: Yes Substance Use Type: Marijuana Substance Use Frequency: Occasionally Have you been hit, kicked, punched, or otherwise hurt by someone within the past year? If so, by whom?: No Are you DNR?: No Advance Directives: No Advance Directives Information Provided: Yes Advance Directives on File: No Poor oral hygiene: Yes service: No Current occupational status: unemployed Current occupational exposures/hazards: No Cognitive needs: No Hearing needs: No Vision needs: No Meds Allergies Allergy/AdvReac Type Severity Reaction Status Date / Time penicillin V Allergy Unknown Nausea and Verified 10/25/24 15:36 Vomiting Penicillins (PENICILLINS) Allergy Unknown NAUSEA/VOMI Verified 10/25/24 15:36 TING MUSCLE RELAXER Allergy Unknown FOAMING AT Uncoded 10/19/24 13:07 THE MOUTH - CANNOT REMEMBER NAME OF DRUG Home Medications ?Medication ?Instructions ?Recorded ?Confirmed ?Last Taken ?Type omeprazole 20 mg capsule,delayed 20 mg PO DAILY PRN Acid Reflux 11/09/24 11/16/24 11/15/24 08:00 History release Assessment and Plan Assessment Anesthesia Assessment: Chart Reviewed Final Anesthetic Review Family History of Problems with Anesthesia: No History of Problems with Anesthesia: No NPO: Yes ASA Class: III Final Preanesthetic Review: No Changes in Pt Med Stat, Meds/Allgs Chart Reviewed, Consent Obtained/Reviewed and Anes Risks/Benef Reviewed Patient Risk: Intermediate Procedure Risk: Low Anesthetic Plan Anesthetic Plan: GA (coccaine and marihuana positive, pt states last used ) and Agree w/ Assess. and Plan Disposition: Standard PACU
[2024-11-16 07:11] VITALS: BP 132/81; PULSE 71; RESP 20; TEMP 36.6; O2SAT 99
[2024-11-16] MEDS: Lactated Ringers 1,000 ML 100 ML IVCONT (07:12)
[2024-11-16 07:31] LABS: Cannabinoid Screen Urine POSITIVE (Not Detect)
--- NOTE | 2024-11-16 08:23 | MHC.SHP ---
Pre-Procedural Eval Section A - 24 Hr Update-Section A only Date of Service: 11/16/24 Section B - Complete if H&P > 30 days Chief Complaint: Unilateral inguinal hernia, without obstruction Details of Present Illness: Has a reducible mass in the left groin for several months consistent with a left inguinal hernia. Relevant Family History (Specify if Yes): No Relevant Social History: Tobacco Use Present Medications: see Short Stay Collaborative assessment Medical History: Significant History (Smoker, alcohol use, COPD, reflux, asthma, gout) Allergies: Allergies Allergy/AdvReac Type Severity Reaction Status Date / Time penicillin V Allergy Unknown Nausea and Verified 10/25/24 15:36 Vomiting Penicillins (PENICILLINS) Allergy Unknown NAUSEA/VOMI Verified 10/25/24 15:36 TING MUSCLE RELAXER Allergy Unknown FOAMING AT Uncoded 10/19/24 13:07 THE MOUTH - CANNOT REMEMBER NAME OF DRUG Review of Systems Sugical H&P ROS: Negative: Cardiovascular, Respiratory and Gastrointestinal Exam Surgical H&P Exam: Normal: Heart, Normal: Lungs and Normal: Abdomen Exam Comment: Reducible left inguinal hernia Plan Diagnosis/Plan: Unchanged I have reviewed the history and physical and performed a pertinent physical examination on my patient. No changes have occurred unless specified. Time Spent With Patient Time: Total time managing care of this patient today ____ minutes.
--- NOTE | 2024-11-16 09:27 | P.OP_ITS ---
Operative Note Operative Note Date of Service: 11/16/24 Narrative: Preop diagnosis: Left inguinal hernia, reducible Postop diagnosis: Left inguinal hernia, reducible, indirect Procedure: Repair of a left inguinal hernia with mesh Surgeon: Jay Briones MD assistant in nursing: KIET Castaneda The patient is a 51-year-old male with a reducible mass of the left groin consistent with a left inguinal hernia. He understood the technique of the planned procedure as was the risks, benefits, and alternatives. He was brought to the operating room. He was placed supine under general anesthesia via laryngeal mask airway. The left groin was prepped and draped in the usual sterile fashion. A surgical time-out was done. The patient received cefazolin 2 g IV preoperatively I infiltrated the planned line of incision with lidocaine 1%. I made a short incision on the skin along an imaginary line from the anterior superior iliac spine to the pubic ramus with a blade 15. This carried down through the full- thickness of the skin and subcutaneous fat down to the fascia. The external oblique aponeurosis was dissected and exposed. The external oblique was seen. I incised the external oblique aponeurosis overlying the canal and extended this inferomedially to connect with the external ring. The inguinal canal was therefore entered. I applied hemostasis on the divided edges of the aponeurosis. I bluntly dissected the underside of the aponeurosis to create a pocket for the mesh I then proceeded to identify the entire cord. I bluntly dissected the cord with my index finger until was able to pass a Reji drain around this. The Reji drain was used for retraction I identified the vas deferens and the accompanying vessels. This were protected throughout the dissection. The sac was seen at the anteromedial aspect. This was carefully dissected off of the rest of the cord contents until was able to completely reduce this through the internal ring. This has therefore an indirect hernia. I reinforced the internal ring with a medium-sized plug. The plug was secured to the shelving edge of the inguinal meant laterally and the internal oblique superiorly medially. I reinforced the entire floor of the canal with a keyhole mesh. The tails of the mesh were passed around the cord at the level of the internal ring and were secured together with Prolene 2-0 sutures. I flattened the mesh on the floor. I secured the mesh to the shelving edge of the inguinal meant laterally, the pubic ramus inferomedially and the internal oblique superiorly and medially with Prolene 2-0 sutures using the inner leaves of the mesh. The Willits drain was removed. We observed for hemostasis. I irrigated. Once hemostasis confirmed, I closed the external oblique aponeurosis with a running Polysorb 2-0 stitch to re-create the external ring The subcutaneous layer was reapposed with Polysorb 3-0 simple interrupted sutures. Skin closure was achieved with Polysorb 4-0 subcuticular running stitch The incision was infiltrated with Marcaine 0.5% for postop analgesia. Dressings were applied. The procedure was completed The patient tolerated the procedure well. There were no immediate complications. Initial and final counts of sponges and instruments were correct. Estimated blood loss was less than 10 cc The patient is extubated without difficulty and transferred to the recovery room with stable vital signs.
[2024-11-16 09:42] VITALS: BP 107/73; PULSE 61; RESP 11; TEMP 36.6; O2SAT 100
[2024-11-16 09:47] VITALS: BP 104/73; PULSE 63; RESP 11; O2SAT 100
[2024-11-16 09:52] VITALS: BP 110/76; PULSE 62; RESP 11; O2SAT 100
[2024-11-16 09:57] VITALS: BP 122/82; PULSE 62; RESP 14; O2SAT 100
[2024-11-16 10:13] VITALS: BP 126/78; PULSE 68; RESP 16; TEMP 36.6; O2SAT 99
== END 2024-11-16 10:47 | disposition home or self-care (01) ==
PROVIDERS: Nurse Practitioner; PCP Nurse Practitioner Family; Visit Provider Surgery
PROC: (CPT 49505; principal; 2024-11-16 08:40)
DX: K40.90 Unilateral inguinal hernia, without obstruction or gangrene, not specified as recurrent (principal); K21.9 Gastro-esophageal reflux disease without esophagitis; M54.9 Dorsalgia, unspecified; A53.9 Syphilis, unspecified; R35.89 Other polyuria; J45.909 Unspecified asthma, uncomplicated; L28.0 Lichen simplex chronicus; B35.0 Tinea barbae and tinea capitis; F10.10 Alcohol abuse, uncomplicated; F14.10 Cocaine abuse, uncomplicated; F12.90 Cannabis use, unspecified, uncomplicated; F32.A Depression, unspecified; F41.9 Anxiety disorder, unspecified; Z79.51 Long term (current) use of inhaled steroids; Z79.899 Other long term (current) drug therapy; Z88.0 Allergy status to penicillin; Z87.891 Personal history of nicotine dependence; Z56.0 Unemployment, unspecified
CPT/HCPCS: 49505; 80307; C1781; J0131; J0690; J1100; J1885; J2003; J2371; J2405; J2704; J2795; J3010

== ENCOUNTER → 2024-11-16 06:29 | Outpatient (BNV) | payer MEDICARE, MEDICAID, SELFPAY | PROVIDERS: PCP Nurse Practitioner Family; Visit Provider Surgery | DX: K40.90 Unilateral inguinal hernia, without obstruction or gangrene, not specified as recurrent (principal) | CPT/HCPCS: 49505 ==

== ENCOUNTER 2024-11-27 15:22 | Outpatient (AMB) | payer MEDICARE, MEDICAID, SELFPAY ==
--- NOTE | 2024-11-27 15:35 | MHC.OFFVIS ---
Vital Signs 11/27/24 15:40 Weight 157 lb BP 125/87 Blood Pressure Location Rt brachial Position Sitting Pulse 89 Intake Visit Reasons: s/p LIH repair LIH Intake Note: Patient here s/p repair of a left inguinal hernia with mesh. Reports incision healing well. Patient c/o: no concerns. No longer taking rx pain meds. Surgery: 11-16-2024 Casework Manager Required: No Accompanied by: Spouse Allergies penicillin V Allergy (Unknown, Verified 11/27/24 15:39) Nausea and Vomiting Penicillins (PENICILLINS) Allergy (Unknown, Verified 11/27/24 15:39) NAUSEA/VOMITING MUSCLE RELAXER Allergy (Unknown, Uncoded 11/27/24 15:39) FOAMING AT THE MOUTH - CANNOT REMEMBER NAME OF DRUG HPI HPI s/p LIH repair LIH: Details: He underwent left inguinal hernia repair with mesh last 11/16/2024. He tolerated the procedure well and currently denies significant complaints. He does admit to pain on the incision but says that this has been improving slowly. [facility]LY [facility] Medical History Cocaine abuse Back pain Arthritis History of headache Numbness Wheezing Rash and nonspecific skin eruption Back disorder Asthma Skin lesion Bilateral impacted cerumen Upper respiratory tract infection Acquired syphilis Screening for STD (sexually transmitted disease) Polyuria Penile discharge Lichenification Laboratory examination ordered as part of a routine general medical examination Tinea barbae Folliculitis GERD (gastroesophageal reflux disease) ETOH abuse Depression Anxiety Surgical History H/O left inguinal hernia repair (11/16/24) Hx of tooth extraction History of tonsillectomy No pertinent past surgical history Family History Father Alcohol abuse Other Substance abuse Social History Housing: Apartment Are you a primary director of medicare to a significant other at home: No Do you presently have visiting nurse or other home services: No Alcohol intake: current Alcohol intake frequency: 3 or more drinks per day Alcohol type: beer and hard liquor Patient Tobacco Use Status: Former Tobacco user Cigarette Packs Per Day: 1 Years Smoked: 20 e-Cigarette/Vaping Use: Never Used Substance Use Type: Marijuana service: No Current occupational status: unemployed Current occupational exposures/hazards: No Cognitive needs: No Hearing needs: No Vision needs: No Review of Systems Const Denies chills and Denies fever(s) Card Denies chest pain with activity and Denies dyspnea on exertion Resp Denies dyspnea on exertion Physical Exam Vital Signs: Last Vital Signs Pulse 89 11/27/24 15:40 BP 125/87 11/27/24 15:40 Const Other: He looks well General: comfortable and no acute distress Resp Effort & Inspection: normal respiratory effort GI Other: Left inguinal repair site is well healed, not infected, repair site intact Palpation (GI): Soft to palpation, not firm, nontender and no guarding Assessment & Plan Assessment & Plan (1) Left inguinal hernia: Code(s): K40.90 - Unilateral inguinal hernia, without obstruction or gangrene, not specified as recurrent Category: Medical Plan: Status post repair with mesh. He is doing very well. The repair site is intact. The incision is healing well I advised him to avoid lifting anything more than 20 lb for at least 2 more weeks. He can otherwise follow up with me on a p.r.n. basis Coding Level of Care Code Global (44228) Diagnoses Left inguinal hernia K40.90
[2024-11-27 15:40] VITALS: BP 125/87; PULSE 89
--- OUTSIDE RECORDS SUMMARY | 2024-11-27 15:57 | XMS_ITS | Clinical Summary ---
Author Organization [facility] Address [address] [place] [address] Care Team Providers Care Architectural Job Captain Name Role Phone Unavailable Primary Care Provider [...] 2013 Fecal DNA 2013 Flexible Sigmoidoscopy 2013 Imm-Pneumococcal 50+ (1 of 1 - PCV) 2018 Imm-Zoster, Recombinant (1 of 2) 2018 [id number] (4 - season) 2024 05/13/2021, 09/23/2020, 09/02/2020 Alcohol and Drug Screen 05/10/2024 Depression Annual Screen 05/10/2024 Imm-Influenza (#1) 2025 04/10/2020 [place]
== END 2024-11-27 15:50 | disposition home or self-care (01) ==
LOC: HO.HGS 15:23
PROVIDERS: PCP Nurse Practitioner Family; Visit Provider Surgery
DX: K40.90 Unilateral inguinal hernia, without obstruction or gangrene, not specified as recurrent (principal)
CPT/HCPCS: 99024

== ENCOUNTER → 2024-11-27 15:22 | Outpatient (BNVA) | payer MEDICARE, MEDICAID, SELFPAY | PROVIDERS: PCP Nurse Practitioner Family; Visit Provider Surgery | DX: K40.90 Unilateral inguinal hernia, without obstruction or gangrene, not specified as recurrent (principal); Z98.890 Other specified postprocedural states | CPT/HCPCS: 99212 ==

== ENCOUNTER 2024-12-02 08:44 | Outpatient (REF) | payer MEDICARE, MEDICAID, SELFPAY ==
--- NOTE | ~2024-12-02 | CT_ITS ---
CLINICAL HISTORY: Z87.891 - Personal history of nicotine dependence CT chest without contrast Comparison: None provided Findings: The heart size is normal. The visualized thyroid and mediastinum are unremarkable. Moderate paraseptal emphysema with blebs of the lung apices. Moderate airway thickening present. No suspicious pulmonary nodule. Few scattered calcified granuloma noted. No effusion. No pneumothorax. The visualized upper abdomen is unremarkable. No acute osseous finding. Impression: Paraseptal emphysema with blebs at the apices. No suspicious pulmonary lesion. This document has been electronically signed by: Crispin Beard MD on 12/04/2024 13:02:49
== END 2024-12-02 08:45 | disposition home or self-care (01) ==
LOC: HO.CT 08:44
PROVIDERS: PCP Nurse Practitioner Family; Visit Provider Nurse Practitioner Family
DX: Z87.891 Personal history of nicotine dependence (principal)
CPT/HCPCS: 71250

== ENCOUNTER → 2024-12-02 08:47 | Outpatient (BNV) | payer MEDICARE, MEDICAID, SELFPAY | PROVIDERS: PCP Nurse Practitioner Family; Visit Provider Radiology Vascular & Interventional Radiology | DX: J43.9 Emphysema, unspecified (principal) | CPT/HCPCS: 71250 ==

== ENCOUNTER 2025-01-06 11:40 | Outpatient (REF) | payer MEDICARE, MEDICAID, SELFPAY ==
[2025-01-06 23:41] LABS: CT PCR Urine NOT DETECTED (Not Detect.); NG PCR Urine NOT DETECTED (Not Detect.)
[2025-01-08 09:58] LABS: Syphilis Screen Reactive (Nonreactive)
[2025-01-11 12:10] LABS: T.Pallidum Particle Agg Test Reactive (Nonreactive)
== END 2025-01-06 11:41 | disposition home or self-care (01) ==
LOC: HO.HMGCLDS 11:40
PROVIDERS: PCP Nurse Practitioner Family; Visit Provider Nurse Practitioner Family
DX: Z20.2 Contact with and (suspected) exposure to infections with a predominantly sexual mode of transmission (principal); Z11.3 Encounter for screening for infections with a predominantly sexual mode of transmission; Z11.8 Encounter for screening for other infectious and parasitic diseases
CPT/HCPCS: 86592; 86780; 87491; 87591; 99212

== ENCOUNTER 2025-01-06 11:40 | Outpatient (AMB) | payer MEDICARE, MEDICAID, SELFPAY ==
--- OUTSIDE RECORDS SUMMARY | 2025-01-06 11:42 | XMS_ITS | Clinical Summary ---
Author Organization [facility] Address [address] [place] [address] Care Team Providers Care Powder Compounder Name Role Phone Unavailable Primary Care Provider [...] 2018 Imm-Zoster, Recombinant (1 of 2) 2018 [id number] (4 - season) 2024 05/13/2021, 09/23/2020, 09/02/2020 Alcohol and Drug Screen 05/10/2024 Depression Annual Screen 05/10/2024 Imm-Influenza (#1) 2025 04/10/2020 [place]
--- NOTE | 2025-01-06 11:52 | MHC.OFFWIV ---
Intake Vital Signs 01/06/25 11:55 Height 6 ft Weight 150 lb BMI 20.3 BP 122/82 Blood Pressure Location Rt brachial Position Sitting Respiration 15 Pulse 84 Pulse Source Pulse Oximeter Temp 98.1 F Temp Source Oral Pulse Oximetry (%) 95 Oxygen Delivery Method Room Air Intake Visit Reasons: EP STD testing Intake Note: Pt is here today wants to be tested for STD/no sx's noted Patient Tobacco Use Status: Former Tobacco user Allergies penicillin V Allergy (Unknown, Verified 01/06/25 11:53) Nausea and Vomiting Penicillins (PENICILLINS) Allergy (Unknown, Verified 01/06/25 11:53) NAUSEA/VOMITING MUSCLE RELAXER Allergy (Unknown, Uncoded 01/06/25 11:53) FOAMING AT THE MOUTH - CANNOT REMEMBER NAME OF DRUG HPI HPI Comments History of Present Illness Details History - The patient is a 54-year-old male presenting with a request for STD screening. - No current symptoms. - Regular screenings performed every four to six months. - Concern about potential exposure during recent travel. - Allergy to penicillin reported. Review of Systems - Immunologic: Denies any symptoms suggestive of current STD. - Allergic/Immunologic: Reports allergy to penicillin. Physical Exam General: Awake, alert. No apparent distress Speaking in full sentences exam deferred, has no active sx. Results - Labs: Pending blood and urine tests for STD screening. Discussion Notes I discussed the request for STD screening with the patient, who is not currently experiencing any symptoms but desires testing due to recent travel and social interactions. I explained that the test involves both a blood test and a urine test, which will be processed and may have a delayed result due to the . I confirmed the patient's pharmacy information for medication needs post-results if necessary. I made the patient aware that the results will be communicated regardless of their positivity or negativity, and ensured they understood the process. Consent for testing was obtained. Patient was given time to ask questions. All questions were answered to their satisfaction. Assessment and Plan 1. Request for STD Screening - Proceed with blood and urine tests for STD screening. - Results may be delayed due to the . - Communicate results whether positive or negative. - Noted penicillin allergy for future treatment considerations. Patient Instructions - Go next door to the lab for blood and urine tests today. - Be aware there might be a delay in results because of the holiday weekend. - We will call you with test results as soon as they come in. - Continue regular monitoring of health as previously advised. Consent Patient was informed and verbally consented to the use of an ambient scribe for clinic note documentation during this visit. [facility]LY [facility] Medical History Cocaine abuse Back pain Arthritis History of headache Numbness Wheezing Rash and nonspecific skin eruption Back disorder Asthma Skin lesion Bilateral impacted cerumen Upper respiratory tract infection Acquired syphilis Screening for STD (sexually transmitted disease) Polyuria Penile discharge Lichenification Laboratory examination ordered as part of a routine general medical examination Tinea barbae Folliculitis GERD (gastroesophageal reflux disease) ETOH abuse Depression Anxiety Surgical History H/O left inguinal hernia repair (11/16/24) Hx of tooth extraction History of tonsillectomy No pertinent past surgical history Family History Father Alcohol abuse Other Substance abuse Social History Housing: Apartment Are you a primary gericare aide teacher to a significant other at home: No Do you presently have visiting nurse or other home services: No Alcohol intake: current Alcohol intake frequency: 3 or more drinks per day Alcohol type: beer and hard liquor Patient Tobacco Use Status: Former Tobacco user Cigarette Packs Per Day: 1 Years Smoked: 20 e-Cigarette/Vaping Use: Never Used Substance Use Type: Marijuana service: No Current occupational status: unemployed Current occupational exposures/hazards: No Cognitive needs: No Hearing needs: No Vision needs: No Physical Exam Vital Signs: Last Vital Signs Temp 98.1 F 01/06/25 11:55 Pulse 84 01/06/25 11:55 Resp 15 01/06/25 11:55 BP 122/82 01/06/25 11:55 Pulse Ox 95 01/06/25 11:55 Oxygen Delivery Method Room Air 01/06/25 11:55 BMI result Body Mass Index 20.3 Assessment & Plan Assessment & Plan (1) Potential exposure to STD: Code(s): Z20.2 - Contact with and (suspected) exposure to infections with a predominantly sexual mode of transmission Plan . Orders: Orders Syphilis Screen Today Z11.3 - Encounter for screening for infections with a predominantly sexual mode of transmission CT NG by PCR Urine Today Z11.3 - Encounter for screening for infections with a predominantly sexual mode of transmission Coding Level of Care Code Est Pt Level 3 (52248) Diagnoses Potential exposure to STD Z20.2
[2025-01-06 11:55] VITALS: BP 122/82; PULSE 84; RESP 15; TEMP 36.7; O2SAT 95; BMI 20.3
== END 2025-01-06 12:33 | disposition home or self-care (01) ==
LOC: HO.HMCWIC 11:40
PROVIDERS: PCP Nurse Practitioner Family
DX: Z20.2 Contact with and (suspected) exposure to infections with a predominantly sexual mode of transmission (principal)

== ENCOUNTER 2025-01-12 04:41 | Emergency (ER) | payer MEDICARE, MEDICAID, SELFPAY ==
--- NOTE | ~2025-01-12 | XR_ITS ---
CLINICAL HISTORY: cough, sob Chest radiograph AP view Comparison: CR/SR - XR CHEST 2 VIEWS - 10/05/24 12:36 EDT Findings: Cardiomediastinal silhouette normal. No consolidations. No pleural effusion. No pneumothorax. No acute fracture. Soft tissue is unremarkable. Impression: No acute cardiopulmonary finding. This document has been electronically signed by: Diana Wood MD on 01/12/2025 08:09:56
[2025-01-12 04:45] VITALS: BP 131/91; PULSE 87; RESP 20; TEMP 36.4; O2SAT 97; BMI 22.3
[2025-01-12 05:58] VITALS: BP 133/97; PULSE 72; RESP 20; O2SAT 97
--- NOTE | 2025-01-12 06:39 | ED.SOB ---
HPI - SOB/Dyspnea General Chief Complaint: Dyspnea Stated Complaint: SOB Time Seen by Provider: 01/12/25 05:05 Source: patient Mode of arrival: ambulatory Limitations: no limitations History of Present Illness ED Provider: Dr. Nedra Epstein HPI Narrative: Patient comes to the emergency room complaining of wheezing and shortness of breath. Patient states that he has been using his inhaler multiple times a day. Also, patient reports that someone from Healthcare [facility] told him that his syphilis test was positive and he had to come to the emergency room to get a penicillin shot. Patient states that he has been dealing with chronic syphilis for years. Patient states that he does not understand with the urgency is today to get a penicillin shot. Related Data Home Medications ?Medication ?Instructions ?Recorded ?Confirmed omeprazole 20 mg capsule,delayed 20 mg PO DAILY PRN Acid Reflux 11/09/24 11/16/24 release Previous Rx's ?Medication ?Instructions ?Recorded ciclesonide 80 mcg/actuation 1 puff inhalation BID #6.1 grams 09/22/24 aerosol inhaler (Alvesco) ibuprofen 600 mg tablet 600 mg PO Q6H PRN pain #30 tabs 11/16/24 albuterol sulfate 2.5 mg/3 mL 2.5 mg (3 mL) inhalation Q4-6H PRN 01/05/25 (0.083 %) solution for nebulization shortness of breath or wheezing #75 mL albuterol sulfate 90 mcg/actuation 2 puff inhalation Q4-6H PRN 01/05/25 aerosol inhaler (Ventolin HFA) shortness of breath or wheezing #8.5 grams Arnuity Ellipta 100 mcg/actuation 1 inh inhalation BID #30 ea 01/09/25 powder for inhalation (fluticasone furoate) albuterol sulfate 90 mcg/actuation 2 puff inhalation Q4-6H PRN 01/12/25 aerosol inhaler (Ventolin HFA) shortness of breath or wheezing #8.5 grams prednisone 50 mg tablet 50 mg PO DAILY #4 tabs 01/12/25 Allergies Allergy/AdvReac Type Severity Reaction Status Date / Time penicillin V Allergy Unknown Nausea and Verified 01/12/25 04:50 Vomiting Penicillins (PENICILLINS) Allergy Unknown NAUSEA/VOMI Verified 01/12/25 04:50 TING MUSCLE RELAXER Allergy Unknown FOAMING AT Uncoded 01/12/25 04:50 THE MOUTH - CANNOT REMEMBER NAME OF DRUG Review of Systems Review of Systems: Constitutional : No Weight loss, No Fever, No Chills, No Night Sweats, No Fatigue, No Malaise ENT/Mouth : No Hearing loss, No Ear Pain, No Nasal Congestion, No Sinus Pain, No Hoarseness, No sore throat, No Rhinorrhea, No Swallowing Difficulty Eyes: No Eye Pain, No Swelling, No Redness, No Foreign Body, No Discharge, No Vision Changes Cardiovascular : No Chest Pain, complaining of dyspnea, no orthopnea no edema or palpitations Respiratory : Complaining of cough, wheezing and chest tightness with no pain, along with shortness of breath. Gastrointestinal : No Nausea, No Vomiting, No Diarrhea, No Constipation, No abdominal Pain, No Hematochezia, No Melena Genitourinary : no irregular bleeding, No Dysuria, No Urinary Frequency, No Hematuria, No Urinary Incontinence, No Urgency, No Flank Pain, No Urinary Flow Changes, No Hesitancy Musculoskeletal : No joint pain, No Myalgias, No Joint Swelling Skin : No Skin Lesions, No rash Neuro : No Weakness, No Numbness, No Paresthesias, No Loss of Consciousness, No Dizziness, No Headache Psych : No Anxiety/Panic, No Depression, No SI/HI/AH/VH, No Social Issues, Heme/Lymph: No Bruising, No Bleeding,No Lymphadenopathy Endocrine : No Polyuria, No Polydipsia, No Temperature Intolerance PMFSH Past Medical History Medical History Cocaine abuse Back pain Arthritis History of headache Numbness Wheezing Rash and nonspecific skin eruption Back disorder Asthma Skin lesion Bilateral impacted cerumen Upper respiratory tract infection Acquired syphilis Screening for STD (sexually transmitted disease) Polyuria Penile discharge Lichenification Laboratory examination ordered as part of a routine general medical examination Tinea barbae Folliculitis GERD (gastroesophageal reflux disease) ETOH abuse Depression Anxiety Surgical History H/O left inguinal hernia repair (11/16/24) Hx of tooth extraction History of tonsillectomy No pertinent past surgical history Family History Family History Father Alcohol abuse Other Substance abuse Social History Social History Housing: Apartment Are you a primary doggy daycare activities director to a significant other at home: No Do you presently have visiting nurse or other home services: No Unable to assess alcohol history related to: Unknown Alcohol intake: never Patient Tobacco Use Status: Former Tobacco user Cigarette Packs Per Day: 1 Years Smoked: 20 Smoked in Last 30 Days: No e-Cigarette/Vaping Use: Never Used Use of substances other than those prescribed or required for medical reasons: No Substance Use Type: Marijuana Advance Directives: No Do you have a plan to hurt others: No Plan service: No Current occupational status: unemployed Current occupational exposures/hazards: No Cognitive needs: No Hearing needs: No Vision needs: No Physical Exam Exam: Exam: Appearance: Alert. Oriented X3. No acute distress. Eyes: Pupils equal, round and reactive to light. ENT: Pharynx normal. Neck: Normal inspection. Neck supple. No lymph nodes noted. No crepitus CVS: Normal heart rate and rhythm. Pulses normal. Normal S1 and S2 Respiratory: No respiratory distress. Breath sounds normal. No Wheezing. No rales Abdomen: Soft and nontender. No rigidity. No distention. Skin: Skin warm and dry. Normal skin color. Normal skin turgor. Extremities: No lower extremity edema. No Lacerations. No Rash Neuro: Oriented X 3. No motor deficit. No sensory deficit. Moving all extremities. No slurred speech. CN 2 through 12 grossly intact Psych: calm, cooperative, normal affect Vital Signs: Vital Signs: Last Vital Signs Temp 97.5 F 01/12/25 04:45 Pulse 72 01/12/25 05:58 Resp 20 01/12/25 05:58 BP 133/97 H 01/12/25 05:58 Pulse Ox 97 01/12/25 05:58 O2 Del Method Room Air 01/12/25 05:58 BMI result Body Mass Index 22.3 Course Course Course Narrative: I discussed with the patient that we will order a nebulization treatment, patient states that he is super afraid of needles and requests that we do not do any blood work or give him any IV medications. Patient states that he will take p.o. prednisone. Medications Administered Discontinued Medications Generic Name Dose Route Start Last Admin Trade Name Freq PRN Reason Stop Dose Admin Prednisone 60 mg 01/12/25 05:48 01/12/25 05:56 Prednisone 20 Mg Tablet PO 01/12/25 05:49 60 mg ONCE ONE Administration Medical Decision Making Medical Decision Making MDM Narrative: Per patient's request, patient received p.o. medications, no blood work or injections today. 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 I reviewed patient's medical records, patient was seen in April of [address] Govea. No treatment was recommended at the time. I discussed with the patient that it would be best to have him follow-up with her and then decide if he actually needs the treatment. This has been a chronic condition for the patient. Patient agrees with plan. Patient states that this time he does not wish to get an injection Patient states that within the last few months, he has been really trying to take care of himself. Patient states rani he will follow-up with ID. Patient was given p.o. prednisone, nebulization treatment, patient overall feeling better. Patient denies history of smoking or prior diagnosis of COPD Patient's oxygen saturation 97% on room air Differential Diagnosis Differential Diagnoses: The differential diagnosis associated with the presentation includes (Asthma, viral illness) Admission/Observation Consideration of admission/observation: Escalation of care including admission/observation considered (Given patient's past medical history, complaints, observation was considered) Independent Interpretation I performed an independent interpretation of an: Plain X-Ray Interpretation: My interpretation of chest x-ray: No acute abnormality, no infiltrates Critical Care Time Critical Care Time Critical Care Time: Yes Total Critical Care Time: 35 Attestation: I have personally provided critical care time. Time includes review of lab data, radiology results, discussion with consultants, and monitoring for potential decompensation. Intervention performed as documented. Discharge Plan Discharge Clinical Impression: Asthma exacerbation Patient Disposition: Home, Self-Care Instructions: Asthma (ED) Additional Instructions: Please follow-up with your primary care physician and with Infectious Disease regarding your positive troponin my pallidum serology test. Insert discharge Prescriptions: New prednisone 50 mg tablet 50 mg PO DAILY Qty: 4 0RF albuterol sulfate [Ventolin HFA] 90 mcg/actuation HFA aerosol inhaler 2 puff inhalation Q4-6H PRN (Reason: shortness of breath or wheezing) Qty: 8.5 0RF No Action albuterol sulfate [Ventolin HFA] 90 mcg/actuation HFA aerosol inhaler 2 puff inhalation Q4-6H PRN (Reason: shortness of breath or wheezing) Qty: 8.5 3RF albuterol sulfate 2.5 mg /3 mL (0.083 %) solution for nebulization 2.5 mg inhalation Q4-6H PRN (Reason: shortness of breath or wheezing) Qty: 75 0RF fluticasone furoate [Arnuity Ellipta] 100 mcg/actuation blister with device 1 inh inhalation BID Qty: 30 3RF omeprazole 20 mg capsule,delayed release(DR/EC) 20 mg PO DAILY PRN (Reason: Acid Reflux) ibuprofen 600 mg tablet 600 mg PO Q6H PRN (Reason: pain) Qty: 30 0RF Alvesco 80 mcg/actuation HFA aerosol inhaler 1 puff inhalation BID Qty: 6.1 4RF Print Language: Andorran
[2025-01-12 07:16] VITALS: BP 144/93; PULSE 70; RESP 16; TEMP 36.6; O2SAT 100
[2025-01-12 07:19] VITALS: BP 144/93; PULSE 70; RESP 16; TEMP 36.6; O2SAT 100
== END 2025-01-12 07:20 | disposition home or self-care (01) ==
PROVIDERS: Emergency Provider Emergency Medicine; PCP Nurse Practitioner Family
DX: J45.901 Unspecified asthma with (acute) exacerbation (principal); R06.02 Shortness of breath; R05.9 Cough, unspecified; Z87.891 Personal history of nicotine dependence
CPT/HCPCS: 71045; 99283; 99284

== ENCOUNTER → 2025-01-12 05:48 | Outpatient (BNV) | payer MEDICARE, MEDICAID, SELFPAY | PROVIDERS: Emergency Provider Emergency Medicine; PCP Nurse Practitioner Family; Visit Provider Radiology Diagnostic Radiology | DX: R05.9 Cough, unspecified (principal); R50.9 Fever, unspecified | CPT/HCPCS: 71045 ==

== ENCOUNTER 2025-02-02 13:01 | Outpatient (AMB) | payer MEDICARE, MEDICAID, SELFPAY ==
--- NOTE | 2025-02-02 13:04 | A.OFFVIS_ITS ---
Vital Signs 02/02/25 13:05 Height 5 ft 9 in Weight 155 lb 2 oz BMI 22.9 BP 112/72 Blood Pressure Location Rt brachial Position Sitting Pulse 77 Pulse Source Pulse Oximeter Pulse Oximetry (%) 99 Oxygen Delivery Method Room Air Intake Visit Reasons: Asthma Allergies penicillin V Allergy (Unknown, Verified 02/02/25 13:09) Nausea and Vomiting Penicillins (PENICILLINS) Allergy (Unknown, Verified 02/02/25 13:09) NAUSEA/VOMITING MUSCLE RELAXER Allergy (Unknown, Uncoded 02/02/25 13:09) FOAMING AT THE MOUTH - CANNOT REMEMBER NAME OF DRUG HPI HPI Asthma: Details: Scott is a pleasant 54 year old male, former 20 pack year smoker, with underlying asthma, GERD, ETOH abuse. Since last visit patient reports moderate control with the use of Arnuity, however continues to use albuterol MDI b.i.d. for dyspnea and chest tightness. He was also evaluated in the emergency room for an asthma exacerbation earlier this month, requiring prednisone. At this time he reports ongoing symptoms of intermittent wheezing, dyspnea and chest tightness. Today he presents to review PFT and chest CT results. [facility] Medical History Cocaine abuse Back pain Arthritis History of headache Numbness Wheezing Rash and nonspecific skin eruption Back disorder Asthma Skin lesion Bilateral impacted cerumen Upper respiratory tract infection Acquired syphilis Screening for STD (sexually transmitted disease) Polyuria Penile discharge Lichenification Laboratory examination ordered as part of a routine general medical examination Tinea barbae Folliculitis GERD (gastroesophageal reflux disease) ETOH abuse Depression Anxiety Surgical History H/O left inguinal hernia repair (11/16/24) Hx of tooth extraction History of tonsillectomy No pertinent past surgical history Family History Father Alcohol abuse Other Substance abuse Social History Housing: Apartment Are you a primary care mgr to a significant other at home: No Do you presently have visiting nurse or other home services: No Unable to assess alcohol history related to: Unknown Alcohol intake: never Patient Tobacco Use Status: Former Tobacco user Cigarette Packs Per Day: 1 Years Smoked: 20 e-Cigarette/Vaping Use: Never Used Substance Use Type: Marijuana service: No Current occupational status: unemployed Current occupational exposures/hazards: No Cognitive needs: No Hearing needs: No Vision needs: No Review of Systems Const Denies chills, Denies excessive sweating, Denies fever(s), Denies headache(s) and Denies night sweats Eyes Denies dry eyes, Denies irritation and Denies itchy eyes ENT Reports Normal hearing present, Denies headache(s), Denies nasal congestion, Denies nasal discharge, Denies post nasal drip and Denies sore throat Card Denies chest pain, Denies chest pain at rest, Denies chest pain with activity, Denies claudication, Denies leg edema, Denies orthopnea and Denies paroxysmal nocturnal dyspnea Resp Denies chest congestion, Denies excessive phlegm production, Denies pain on inspiration, Denies pain with cough and Denies stridor Musc Denies myalgias Neuro Reports Normal hearing present and Denies headache(s) Endo Denies excessive sweating Joshua/Lymph Denies lymphadenopathy Aller/Immun Denies itchy eyes and Denies seasonal rhinorrhea Physical Exam Vital Signs: Last Vital Signs Pulse 77 02/02/25 13:05 BP 112/72 02/02/25 13:05 Pulse Ox 99 02/02/25 13:05 Oxygen Delivery Method Room Air 02/02/25 13:05 BMI result Body Mass Index 22.9 Const General: cooperative, healthy appearing, comfortable, no acute distress, well developed and alert Orientation/consciousness: patient oriented x3 Limitations: no limitations HEENT Head: Yes normal to inspection, Yes normocephalic and Yes atraumatic Ears: hearing grossly normal bilaterally and external ears normal Eyes General: appearance normal, both eyes and all related structures Eyelids: Yes eyelids normal Sclerae: sclerae normal EOM: EOMs intact bilaterally Neck Neck: Yes normal visual inspection and Yes no lymphadenopathy Lymphatic: no lymphadenopathy noted Chest Chest palpation & inspection: normal inspection of the chest Resp Effort & Inspection: normal respiratory effort, able to speak in complete sentences, no audible wheezes, no cough, no stridor, not tachypneic, no tripod positioning and no use of accessory muscles Auscultation: wheezes expiratory wheezes Cardio Jugular venous distension: no JVD Rate: regular rate Rhythm: regular rhythm Skin Other: warm, dry General skin exam: no rashes or lesions noted Neuro General: patient oriented x3 Cranial nerves: Yes Normal hearing present Cognition (Neuro): normal cognition Gait exam (Neuro): Normal gait present Extrem General: Yes normal to inspection, Yes capillary refill normal, Yes no clubbing, cyanosis or edema and Yes no pedal edema Psych Appearance: grossly normal and well kempt Speech and movement: Normal speech and movement present and Clear speech present Affect: normal affect Attitude: cooperative Thought process: Normal thought process present Thought content: Normal thought content present Insight: Good insight present (Psych) Judgement: Good judgement present (Psych) Results Reviewed Results Reviewed: [address] [address] [address] Scan Report Signed Patient: Scott Delaney MR#: [id number] : 1970 Acct:[id number] Age/Sex: 54 / M ADM Date: 12/02/24 Loc: HO.CT Attending Dr: Nedra Woodson OIL LEASE BUYER Ordering Physician: Nedra Woodson NP Date of Service: 12/02/24 Procedure(s): CT chest wo IV con Accession Number(s): [id number] cc: Nedra Woodson OIL LEASE BUYER; Hernandez Echevarria ENVIRONMENTAL SERVICE AIDE~ Report Number: [id number]: Total DLP = 310.00 mGy-cm CLINICAL HISTORY: Z87.891 - Personal history of nicotine dependence CT chest without contrast Comparison: None provided Findings: The heart size is normal. The visualized thyroid and mediastinum are unremarkable. Moderate paraseptal emphysema with blebs of the lung apices. Moderate airway thickening present. No suspicious pulmonary nodule. Few scattered calcified granuloma noted. No effusion. No pneumothorax. The visualized upper abdomen is unremarkable. No acute osseous finding. Impression: Paraseptal emphysema with blebs at the apices. No suspicious pulmonary lesion. This document has been electronically signed by: Crispin Beard MD on 12/04/2024 13:02:49 Dictated By: Crispin Beard MD Signed By: <Electronically signed by Crispin Beard MD in [place]> 12/04/24 1303 DD/ 1302 TD/TT: 12/04/24 1302 Paper Carrier: Assessment & Plan Assessment & Plan (1) Asthma-COPD overlap syndrome: Code(s): J44.89 - Other specified chronic obstructive pulmonary disease Category: Medical (2) Personal history of tobacco use: Code(s): Z87.891 - Personal history of nicotine dependence Category: Social Hx Plan Will treat wheezing with prednisone today switch Arnuity to Breo to better manage asthma symptoms. He is aware to call if symptoms do not improve or seek emergent care symptoms worsen. Reviewed PFT will to suggestive of mild COPD given prior history of asthma consistent with asthma COPD overlap syndrome. Reviewed chest CT 11/2024 which revealed emphysematous changes with no concerning pulmonary nodules. Will refer to lung screening program given smoking history and will have LDCT 11/2025. All questions were answered and patient is in agreement of plan. Will follow up in 8 weeks or sooner if needed. Orders: Referrals Lung Cancer Screening Referral Z87.891 - Personal history of nicotine dependence Medications: New fluticasone furoate-vilanterol 100-25 mcg/dose (Breo Ellipta) 1 inh inhalation DAILY 60 ea 6RF prednisone 40 mg (2 x 20 mg) PO DAILY 10 tabs 0RF Refilled albuterol sulfate 90 mcg/actuation (Ventolin HFA) 2 puffs inhalation Q4-6H PRN 8.5 grams 0RF shortness of breath or wheezing Discontinued ciclesonide 80 mcg/actuation (Alvesco) Discontinued Reason: Patient Completed Course 1 puff inhalation BID 6.1 grams 4RF Arnuity Ellipta 100 mcg/actuation (fluticasone furoate) Discontinued Reason: Patient Completed Course 1 inh inhalation Q24H 30 ea 3RF NS Coding Level of Care Code Est Pt Level 4 (32433) Diagnoses Asthma-COPD overlap syndrome J44.89 Personal history of tobacco use Z87.899
[2025-02-02 13:05] VITALS: BP 112/72; PULSE 77; O2SAT 99; BMI 22.9
--- OUTSIDE RECORDS SUMMARY | 2025-02-02 14:24 | XMS_ITS | Clinical Summary ---
Author Organization [facility] Address [address] [place] [address] Care Team Providers Care Extension Associate Name Role Phone Unavailable Primary Care Provider [...] 2018 Imm-Zoster, Recombinant (1 of 2) 2018 Alcohol and Drug Screen 05/10/2024 Depression Annual Screen 05/10/2024 [id number] ( - season) 2025 05/13/2021, 09/23/2020, 09/02/2020 Imm-Influenza (#1) 2025 04/10/2020 Insurance MEDICARE - [place]
== END 2025-02-02 14:18 | disposition home or self-care (01) ==
LOC: HO.HPSW 13:02
PROVIDERS: PCP Nurse Practitioner Family; Visit Provider Nurse Practitioner Family
DX: J44.89 Other specified chronic obstructive pulmonary disease (principal); Z87.891 Personal history of nicotine dependence
CPT/HCPCS: 99214

== ENCOUNTER → 2025-02-02 13:01 | Outpatient (BNVA) | payer MEDICARE, MEDICAID, SELFPAY | PROVIDERS: PCP Nurse Practitioner Family; Visit Provider Nurse Practitioner Family | DX: J44.89 Other specified chronic obstructive pulmonary disease (principal); Z87.891 Personal history of nicotine dependence | CPT/HCPCS: 99212 ==

== ENCOUNTER 2025-02-15 14:46 | Outpatient (AMB) | payer MEDICARE, MEDICAID, SELFPAY ==
[2025-02-15 14:48] VITALS: BMI 22.5
--- NOTE | 2025-02-15 14:48 | A.OFFVIS_ITS ---
Vital Signs 02/15/25 14:48 Height 5 ft 9 in Weight 152 lb 6 oz BMI 22.5 Intake Visit Reasons: ingunial hernia Intake Note: This patient presents for an assessment for right inguinal hernia. Pt c/o; right groin, reducible, occasional discomfort. 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 He says he has noticed this lump on his right groin which is reducible on and off around 2 months ago. He actually had a left inguinal repair done last November, He denies GI complaints. He does state that the lump seems to be bigger sometimes and he wants this repaired. He says he was already familiar with the procedure. He says he is healthy overall. [facility] Medical History (Updated 02/15/25 @ 15:00 by Jay Birones MD) Reducible right inguinal hernia Cocaine abuse Back pain Arthritis History of headache Numbness Wheezing Rash and nonspecific skin eruption Back disorder Asthma Skin lesion Bilateral impacted cerumen Upper respiratory tract infection Acquired syphilis Screening for STD (sexually transmitted disease) Polyuria Penile discharge Lichenification Laboratory examination ordered as part of a routine general medical examination Tinea barbae Folliculitis GERD (gastroesophageal reflux disease) ETOH abuse Depression Anxiety Surgical History H/O left inguinal hernia repair (11/16/24) Hx of tooth extraction History of tonsillectomy No pertinent past surgical history Family History Father Alcohol abuse Other Substance abuse Social History Housing: Apartment Are you a primary primary health care nurse to a significant other at home: No Do you presently have visiting nurse or other home services: No Alcohol intake: never Patient Tobacco Use Status: Former Tobacco user Cigarette Packs Per Day: 1 Years Smoked: 20 e-Cigarette/Vaping Use: Never Used Substance Use Type: Marijuana service: No Current occupational status: unemployed Current occupational exposures/hazards: No Cognitive needs: No Hearing needs: No Vision needs: No Review of Systems Const Denies chills and Denies fever(s) Card Denies chest pain, Denies dyspnea and Denies dyspnea on exertion Resp Denies cough, Denies dyspnea and Denies dyspnea on exertion GI Denies hematochezia and Denies change in bowel habits Denies hematuria and Denies difficulty urinating Musc Denies back pain and Denies limited range of motion Neuro Denies focal weakness and Denies convulsions Psych Denies depression and Denies mood swings Physical Exam Const General: comfortable and no acute distress Orientation/consciousness: patient oriented x3 Neck Neck: Yes no lymphadenopathy Resp Auscultation: clear to auscultation bilaterally Cardio Rhythm: regular rhythm GI Other: Right inguinal hernia reducible Palpation (GI): Soft to palpation, nontender and no guarding Neuro General: patient oriented x3 Assessment & Plan Assessment & Plan (1) Reducible right inguinal hernia: Code(s): K40.90 - Unilateral inguinal hernia, without obstruction or gangrene, not specified as recurrent Category: Medical Plan I explained to him the technique of repair of the right inguinal hernia with mesh. I reviewed the risks including but not limited to bleeding, infections, injury to bowel, vas deferens, recurrence, postop pain, as well as the benefits and alternatives. I also explained to him what to expect postoperatively. He says he understands and wants to proceed Coding Level of Care Code Est Pt Level 3 (93160) Diagnoses Reducible right inguinal hernia K40.90
== END 2025-02-15 14:58 | disposition home or self-care (01) ==
LOC: HO.HGS 14:47
PROVIDERS: PCP Nurse Practitioner Family; Visit Provider Surgery
DX: K40.90 Unilateral inguinal hernia, without obstruction or gangrene, not specified as recurrent (principal)
CPT/HCPCS: 99213

== ENCOUNTER → 2025-02-15 14:46 | Outpatient (BNVA) | payer MEDICARE, MEDICAID, SELFPAY | PROVIDERS: PCP Nurse Practitioner Family; Visit Provider Surgery | DX: K40.90 Unilateral inguinal hernia, without obstruction or gangrene, not specified as recurrent (principal) | CPT/HCPCS: 99212 ==

== ENCOUNTER 2025-03-02 15:31 | Outpatient (AMB) | payer MEDICARE, MEDICAID, SELFPAY ==
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
[2025-03-02 15:44] VITALS: BP 128/87; PULSE 78; RESP 16; TEMP 36.4; O2SAT 97; BMI 22.1
--- OUTSIDE RECORDS SUMMARY | 2025-03-02 16:59 | XMS_ITS | Clinical Summary ---
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
== END 2025-03-02 16:33 | disposition home or self-care (01) ==
LOC: HO.HMCFM 15:32
PROVIDERS: PCP Nurse Practitioner Family; Visit Provider Nurse Practitioner Family
DX: Z01.818 Encounter for other preprocedural examination (principal); F41.9 Anxiety disorder, unspecified; F32.A Depression, unspecified; E78.5 Hyperlipidemia, unspecified; R74.01 Elevation of levels of liver transaminase levels; M79.641 Pain in right hand; M54.9 Dorsalgia, unspecified; G89.29 Other chronic pain

== ENCOUNTER → 2025-03-02 15:31 | Outpatient (BNVA) | payer MEDICARE, MEDICAID, SELFPAY | PROVIDERS: PCP Nurse Practitioner Family; Visit Provider Nurse Practitioner Family | DX: Z01.818 Encounter for other preprocedural examination (principal); K40.90 Unilateral inguinal hernia, without obstruction or gangrene, not specified as recurrent; F41.9 Anxiety disorder, unspecified; F32.A Depression, unspecified; E78.5 Hyperlipidemia, unspecified; R74.01 Elevation of levels of liver transaminase levels; M79.641 Pain in right hand; M54.9 Dorsalgia, unspecified; G89.29 Other chronic pain | CPT/HCPCS: 96127; 99212 ==

== ENCOUNTER 2025-03-13 10:24 | Outpatient (AMB) | payer MEDICARE, MEDICAID, SELFPAY ==
[2025-03-13 10:26] VITALS: BP 126/78; PULSE 96; O2SAT 97; BMI 22.5
--- NOTE | 2025-03-13 10:26 | A.OFFVIS_ITS ---
Vital Signs 03/13/25 10:26 Height 5 ft 9 in Weight 152 lb 6 oz BMI 22.5 BP 126/78 Blood Pressure Location Rt brachial Position Sitting Pulse 96 Pulse Source Pulse Oximeter Pulse Oximetry (%) 97 Oxygen Delivery Method Room Air Intake Visit Reasons: pulmonary clearance Allergies penicillin V Allergy (Unknown, Verified 03/13/25 10:32) Nausea and Vomiting Penicillins (PENICILLINS) Allergy (Unknown, Verified 03/13/25 10:32) NAUSEA/VOMITING MUSCLE RELAXER Allergy (Unknown, Uncoded 03/13/25 10:32) FOAMING AT THE MOUTH - CANNOT REMEMBER NAME OF DRUG HPI HPI pulmonary clearance: Details: Scott is a pleasant 55 year old male, former 20 pack year smoker, quit 10+ years ago with underlying asthma COPD overlap syndrome, GERD, and ETOH abuse. At the last visit, patient reported suboptimal control with Arnuity and was switched to Breo with significant improvements. Unfortunately, patient states he was was unable to obtain refills, unclear reasoning. He currently denies any respiratory symptoms since completing course of prednisone given at last visit. He denies any visits to urgent care or hospitalizations related to respiratory distress since the last visit. [facility] Medical History (Updated 03/13/25 @ 11:12 by Nedra Woodson NP) Reducible right inguinal hernia Cocaine abuse Back pain Arthritis History of headache Numbness Wheezing Rash and nonspecific skin eruption Back disorder Asthma Skin lesion Bilateral impacted cerumen Upper respiratory tract infection Acquired syphilis Screening for STD (sexually transmitted disease) Polyuria Penile discharge Lichenification Laboratory examination ordered as part of a routine general medical examination Tinea barbae Folliculitis GERD (gastroesophageal reflux disease) ETOH abuse Depression Anxiety Surgical History H/O left inguinal hernia repair (11/16/24) Hx of tooth extraction History of tonsillectomy No pertinent past surgical history Family History Father Alcohol abuse Other Substance abuse Social History Housing: Apartment Are you a primary senior care specialist to a significant other at home: No Do you presently have visiting nurse or other home services: No Alcohol intake: never Patient Tobacco Use Status: Former Tobacco user Cigarette Packs Per Day: 1 Years Smoked: 20 e-Cigarette/Vaping Use: Never Used Substance Use Type: Marijuana service: No Current occupational status: unemployed Current occupational exposures/hazards: No Cognitive needs: No Hearing needs: No Vision needs: No Review of Systems Const Denies chills, Denies excessive sweating, Denies fever(s), Denies headache(s) and Denies night sweats Eyes Denies dry eyes, Denies irritation and Denies itchy eyes ENT Reports Normal hearing present, Denies headache(s), Denies nasal congestion, Denies nasal discharge, Denies post nasal drip and Denies sore throat Card Denies chest pain, Denies chest pain at rest, Denies chest pain with activity, Denies claudication, Denies leg edema, Denies dyspnea, Denies dyspnea on exertion, Denies orthopnea and Denies paroxysmal nocturnal dyspnea Resp Denies chest congestion, Denies cough, Denies excessive phlegm production, Denies pain on inspiration, Denies pain with cough, Denies dyspnea, Denies dyspnea on exertion, Denies stridor and Denies wheezing Musc Denies myalgias Neuro Reports Normal hearing present and Denies headache(s) Endo Denies excessive sweating Joshua/Lymph Denies lymphadenopathy Aller/Immun Denies itchy eyes, Denies seasonal rhinorrhea and Denies wheezing Physical Exam Vital Signs: Last Vital Signs Pulse 96 03/13/25 10:26 BP 126/78 03/13/25 10:26 Pulse Ox 97 03/13/25 10:26 Oxygen Delivery Method Room Air 03/13/25 10:26 BMI result Body Mass Index 22.5 Const General: cooperative, healthy appearing, comfortable, no acute distress, well developed and alert Orientation/consciousness: patient oriented x3 Limitations: no limitations HEENT Head: Yes normal to inspection, Yes normocephalic and Yes atraumatic Ears: hearing grossly normal bilaterally and external ears normal Eyes General: appearance normal, both eyes and all related structures Eyelids: Yes eyelids normal Sclerae: sclerae normal EOM: EOMs intact bilaterally Neck Neck: Yes normal visual inspection and Yes no lymphadenopathy Lymphatic: no lymphadenopathy noted Chest Chest palpation & inspection: normal inspection of the chest Resp Effort & Inspection: normal respiratory effort, able to speak in complete senten millie, no audible wheezes, no cough, no stridor, not tachypneic, no tripod positioning and no use of accessory muscles Auscultation: clear to auscultation bilaterally Cardio Jugular venous distension: no JVD Rate: regular rate Rhythm: regular rhythm Skin Other: warm, dry General skin exam: no rashes or lesions noted Neuro General: patient oriented x3 Cranial nerves: Yes Normal hearing present Cognition (Neuro): normal cognition Gait exam (Neuro): Normal gait present Extrem General: Yes normal to inspection, Yes capillary refill normal, Yes no clubbing, cyanosis or edema and Yes no pedal edema Psych Appearance: grossly normal and well kempt Speech and movement: Normal speech and movement present and Clear speech present Affect: normal affect Attitude: cooperative Thought process: Normal thought process present Thought content: Normal thought content present Insight: Good insight present (Psych) Judgement: Good judgement present (Psych) Assessment & Plan Assessment & Plan (1) Asthma-COPD overlap syndrome: Code(s): J44.89 - Other specified chronic obstructive pulmonary disease Category: Medical (2) Personal history of tobacco use: Code(s): Z87.891 - Personal history of nicotine dependence Category: Social Hx (3) Encounter for preoperative pulmonary examination: Code(s): Z01.811 - Encounter for preprocedural respiratory examination Category: Medical Plan At this time, Scott reports good control of respiratory symptoms with the use of Breo and Albuterol MDI, encouraged to continue. Will reach out to pharmacy as patient should be on a ICS/LABA, will look into why patient was been unable to obtain refills. Again reviewed PFT which is suggestive of mild COPD and chest CT 11/2024 unremarkable other than emphysematous changes with no concerning pulmonary nodules. He denies any recent visits for URI/exacerbations. Respiratory exam today and VSS WNL. At this time, per the [facility] ([facility]) preoperative pulmonary risk index patient would be considered low risk for upcoming hernia repair, scheduled on 03/23/25. All questions were answered and patient is in agreement of plan. Will follow up in 3 months or sooner if needed. Coding Level of Care Code Est Pt Level 4 (18798) Diagnoses Asthma-COPD overlap syndrome J44.89 Personal history of tobacco use Z87.891 Encounter for preoperative pulmonary examination Z01.811
== END 2025-03-13 10:54 | disposition home or self-care (01) ==
LOC: HO.HPSW 10:24
PROVIDERS: PCP Nurse Practitioner Family; Visit Provider Nurse Practitioner Family
DX: J44.89 Other specified chronic obstructive pulmonary disease (principal); Z87.891 Personal history of nicotine dependence; Z01.811 Encounter for preprocedural respiratory examination
CPT/HCPCS: 99214

== ENCOUNTER → 2025-03-13 10:24 | Outpatient (BNVA) | payer MEDICARE, MEDICAID, SELFPAY | PROVIDERS: PCP Nurse Practitioner Family; Visit Provider Nurse Practitioner Family | DX: Z01.811 Encounter for preprocedural respiratory examination (principal); J44.89 Other specified chronic obstructive pulmonary disease; Z87.891 Personal history of nicotine dependence | CPT/HCPCS: 99212 ==

== ENCOUNTER 2025-03-21 09:52 | Outpatient (REF) | payer MEDICARE, MEDICAID, SELFPAY ==
--- OUTSIDE RECORDS SUMMARY | 2025-03-21 11:22 | XMS_ITS | Clinical Summary ---
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
[2025-03-21 14:08] LABS: Hematocrit 42.9 % (42.0-52.0); Hemoglobin 13.9 g/dl (14.0-18.0); Imm Gran Abs Auto 0.01 X10*3/uL (0.00-0.03); Imm Gran Pct Auto 0.3 % (0.0-0.4); Lymphocytes Absolute Auto 1.4 X10*3/uL (1.2-4.9); MANUAL DIFF FLAG SCAN; Mean Corpuscular HGB Conc 32.4 g/dl (31.0-36.0); Mean Corpuscular Hemoglobin 30.3 pg (27.0-33.0); Mean Corpuscular Volume 93.7 fL (80.0-98.0); NRBC Abs Auto 0.000 X10*3/uL (0.0-0.012); NRBC Pct Auto 0.0 /100WBC (0.0-0.2); Platelet Count 378 X10*3/uL (160-400); Red Blood Count 4.58 X10*6/uL (4.60-5.80); SCAN SMEAR FLAG 1; White Blood Count 3.5 X10*3/uL (4.8-10.8)
[2025-03-21 14:24] LABS: Alanine Aminotransferase 34 U/L (0-40); Albumin Level 4.5 g/dL (3.5-5.0); Alkaline Phosphatase 108 U/L (39-117); Anion Gap 12 (12-20); Aspartate Amino Transferase 47 U/L (5-37); Blood Urea Nitrogen 14 mg/dL (9-16); Calcium 9.5 mg/dL (8.4-10.2); Carbon Dioxide 27 mmol/L (22-29); Chloride 104 mmol/L (96-108); Estimated Glomerular Filt Rate > 60; Potassium 4.3 mmol/L (3.3-5.1); Sodium 139 mmol/L (135-145); Total Protein 7.9 g/dL (6.5-8.0)
== END 2025-03-21 09:53 | disposition home or self-care (01) ==
LOC: HO.HMGCLDS 09:52
PROVIDERS: PCP Nurse Practitioner Family; Visit Provider Nurse Practitioner Family
DX: Z01.818 Encounter for other preprocedural examination (principal)
CPT/HCPCS: 36415; 80053; 85025

== ENCOUNTER → 2025-03-23 08:49 | Day surgery (SDC) | payer MEDICARE, MEDICAID, SELFPAY ==
--- OUTSIDE RECORDS SUMMARY | 2025-02-27 16:14 | XMS_ITS | Clinical Summary ---
Author Organization [facility] Address [address] [place] [address] Care Team Providers Care Database Marketing Analyst Name Role Phone Unavailable Primary Care Provider [...] Drug Screen 05/10/2024 Depression Annual Screen 05/10/2024 [id number] ( - season) 2025 05/13/2021, 09/23/2020, 09/02/2020 Imm-Influenza (#1) 2025 04/10/2020 Insurance [place] - [place]
--- NOTE | 2025-03-20 09:59 | P.CONAN_ITS ---
HPI - Anesthesia Eval Consult details Narrative: 55 yr old male for right repair hernia inguinal reducible with mesh s/p hernia repair 11/2024 with GA, LMA size 4; +Cocaine, marijuana on tox screen DOS Saw PCP for clearance Feb 2025, advised to have CBC, CMP done prior to being cleared for surgery. Asthma/COPD: [place] [facility] [place], good control at 03/13/25 visit PMF Active Problems Active Problems: All Active Problems Encounter for preoperative pulmonary examination (Acute) Chronic back pain (Acute) Pain of right hand (Acute) Preop examination (Acute) Anxiety and depression (Acute) Reducible right inguinal hernia (Acute) Asthma-COPD overlap syndrome (Acute) Bilateral low back pain (Acute) Personal history of tobacco use (Acute) Cough (Acute) Left inguinal hernia (Acute) Left inguinal hernia (Acute) Normocytic anemia (Acute) Leukopenia (Acute) Transaminitis (Acute) Hyperlipidemia (Acute) Alcohol use disorder (Acute) Screening PSA (prostate specific antigen) (Acute) Laboratory tests ordered as part of a complete physical exam (CPE) (Acute) Colon cancer screening (Acute) Arthritis of both hands (Acute) Normal physical examination, routine (Acute) Positive serology for syphilis (Acute) Sexually transmitted disease exposure (Acute) COPD (chronic obstructive pulmonary disease) (Acute) Alcohol use disorder, severe, dependence (Acute) Substance use disorder (Acute) Gout (Acute) Rash and nonspecific skin eruption (Acute) GERD (gastroesophageal reflux disease) (Acute) Asthma (Acute) ETOH abuse (Acute) Past Medical History Medical History (Updated 03/13/25 @ 11:12 by Nedra Woodson NP) Reducible right inguinal hernia Cocaine abuse Back pain Arthritis History of headache Numbness Wheezing Rash and nonspecific skin eruption Back disorder Asthma Skin lesion Bilateral impacted cerumen Upper respiratory tract infection Acquired syphilis Screening for STD (sexually transmitted disease) Polyuria Penile discharge Lichenification Laboratory examination ordered as part of a routine general medical examination Tinea barbae Folliculitis GERD (gastroesophageal reflux disease) ETOH abuse Depression Anxiety Family History Family History Father Alcohol abuse Other Substance abuse Family history of problems with anesthesia: No Surgical History Surgical History H/O left inguinal hernia repair (11/16/24) Hx of tooth extraction History of tonsillectomy No pertinent past surgical history History of Problems with Anesthesia: No Social History Social History Housing: Apartment Are you a primary care professionals to a significant other at home: No Do you presently have visiting nurse or other home services: No Alcohol intake: never Patient Tobacco Use Status: Former Tobacco user Cigarette Packs Per Day: 1 Years Smoked: 20 e-Cigarette/Vaping Use: Never Used Substance Use Type: Marijuana service: No Current occupational status: unemployed Current occupational exposures/hazards: No Cognitive needs: No Hearing needs: No Vision needs: No Meds Allergies Allergy/AdvReac Type Severity Reaction Status Date / Time penicillin V Allergy Unknown Nausea and Verified 03/13/25 10:32 Vomiting Penicillins (PENICILLINS) Allergy Unknown NAUSEA/VOMI Verified 03/13/25 10:32 TING MUSCLE RELAXER Allergy Unknown FOAMING AT Uncoded 03/13/25 10:32 THE MOUTH - CANNOT REMEMBER NAME OF DRUG Home Medications ?Medication ?Instructions ?Recorded ?Confirmed ?Last Taken ?Type omeprazole 20 mg capsule,delayed 20 mg PO DAILY PRN Ac id Reflux 11/09/24 03/21/25 11/15/24 08:00 History release Assessment and Plan Final Anesthetic Review Family History of Problems with Anesthesia: No History of Problems with Anesthesia: No
[2025-03-21 07:38] VITALS: BMI 22.4
[2025-03-23 09:18] LABS: Cannabinoid Screen Urine POSITIVE (Not Detect)
[2025-03-23 09:56] LABS: INTERNATIONAL NORM RATIO 0.9 (0.9-1.1); Prothrombin Time 10.7 SEC (11.2-13.5)
--- NOTE | 2025-03-23 10:11 | PC.NURSE ---
Dr. Briones updated regarding results of today's lab draw - stated okay to proceed.
[2025-03-23 11:33] VITALS: BP 145/95; PULSE 64; RESP 18; TEMP 36.7; O2SAT 96
--- NOTE | 2025-03-23 12:26 | PC.NURSE ---
Patient is going to re-schedule his procedure, due to the delay that is anticipated today. Dr. Briones explained this to patient, and that he will be re-scheduled. IV was never placed. Patient left will all of his belongings, and signed belongings sheet in chart. Antibiotic that was pulled, was returned to [facility]. Patient agreed with plan.
== END ==
LOC: HO.SSS 08:50
PROVIDERS: Nurse Practitioner; PCP Nurse Practitioner Family; Visit Provider Surgery
DX: K40.90 Unilateral inguinal hernia, without obstruction or gangrene, not specified as recurrent (principal); Z53.29 Procedure and treatment not carried out because of patient's decision for other reasons; R82.5 Elevated urine levels of drugs, medicaments and biological substances; F12.90 Cannabis use, unspecified, uncomplicated
CPT/HCPCS: 36415; 80307; 85610; J0690

== ENCOUNTER 2025-03-27 08:44 | Day surgery (SDC) | payer MEDICARE, MEDICAID, SELFPAY ==
--- NOTE | 2025-03-26 08:00 | P.CONAN_ITS ---
Documented by User: Lizett Jovel NP 03/26/25 08:01 HPI - Anesthesia Eval Consult details Narrative: 55 yr old male for right repair hernia inguinal reducible with mesh, rescheduled for 03/27/25 s/p hernia repair 11/2024 with GA, LMA size 4; +Cocaine, marijuana on tox screen DOS Saw PCP for clearance Feb 2025, advised to have CBC, CMP done prior to being cleared for surgery. Asthma/COPD: follows [facility] pulm, good control at 03/13/25 visit PMF Active Problems Active Problems: All Active Problems Encounter for preoperative pulmonary examination (Acute) Chronic back pain (Acute) Pain of right hand (Acute) Preop examination (Acute) Anxiety and depression (Acute) Reducible right inguinal hernia (Acute) Asthma-COPD overlap syndrome (Acute) Bilateral low back pain (Acute) Personal history of tobacco use (Acute) Cough (Acute) Left inguinal hernia (Acute) Left inguinal hernia (Acute) Normocytic anemia (Acute) Leukopenia (Acute) Transaminitis (Acute) Hyperlipidemia (Acute) Alcohol use disorder (Acute) Screening PSA (prostate specific antigen) (Acute) Laboratory tests ordered as part of a complete physical exam (CPE) (Acute) Colon cancer screening (Acute) Arthritis of both hands (Acute) Normal physical examination, routine (Acute) Positive serology for syphilis (Acute) Sexually transmitted disease exposure (Acute) COPD (chronic obstructive pulmonary disease) (Acute) Alcohol use disorder, severe, dependence (Acute) Substance use disorder (Acute) Gout (Acute) Rash and nonspecific skin eruption (Acute) GERD (gastroesophageal reflux disease) (Acute) Asthma (Acute) ETOH abuse (Acute) Past Medical History Medical History Reducible right inguinal hernia Cocaine abuse Back pain Arthritis History of headache Numbness Wheezing Rash and nonspecific skin eruption Back disorder Asthma Skin lesion Bilateral impacted cerumen Upper respiratory tract infection Acquired syphilis Screening for STD (sexually transmitted disease) Polyuria Penile discharge Lichenification Laboratory examination ordered as part of a routine general medical examination Tinea barbae Folliculitis GERD (gastroesophageal reflux disease) ETOH abuse Depression Anxiety Family History Family History Father Alcohol abuse Other Substance abuse Family history of problems with anesthesia: No Surgical History Surgical History H/O left inguinal hernia repair (11/16/24) Hx of tooth extraction History of tonsillectomy No pertinent past surgical history History of Problems with Anesthesia: No Social History Social History Housing: Apartment Are you a primary manager critical care unit to a significant other at home: No Do you presently have visiting nurse or other home services: No Alcohol intake: never Patient Tobacco Use Status: Former Tobacco user Cigarette Packs Per Day: 1 Years Smoked: 20 e-Cigarette/Vaping Use: Never Used Substance Use Type: Marijuana Have you been hit, kicked, punched, or otherwise hurt by someone within the past year? If so, by whom?: No Are you DNR?: No Advance Directives: No Advance Directives Information Provided: Yes service: No Current occupational status: unemployed Current occupational exposures/hazards: No Cognitive needs: No Hearing needs: No Vision needs: No Meds Allergies Allergy/AdvReac Type Severity Reaction Status Date / Time penicillin V Allergy Unknown Nausea and Verified 03/23/25 11:33 Vomiting Penicillins (PENICILLINS) Allergy Unknown NAUSEA/VOMI Verified 03/23/25 11:33 TING MUSCLE RELAXER Allergy Unknown FOAMING AT Uncoded 03/23/25 11:33 THE MOUTH - CANNOT REMEMBER NAME OF DRUG Home Medications ?Medication ?Instructions ?Recorded ?Confirmed ?Last Taken ?Type omeprazole 20 mg capsule,delayed 20 mg PO DAILY PRN Ac id Reflux 11/09/24 03/27/25 03/27/25 History release Exam Narrative Narrative: EKG 10/2023 Vent. Rate : 069 BPM Atrial Rate : 069 BPM P-R Int : 144 ms QRS Dur : 090 ms QT Int : 406 ms P-R-T Axes : 066 070 051 degrees QTc Int : 435 ms Normal sinus rhythm Normal ECG When compared with ECG of 04-NOV-2021 21:27, No significant change was found Assessment and Plan Final Anesthetic Review Family History of Problems with Anesthesia: No History of Problems with Anesthesia: No Documented by User: Gonsalo Balderas MD 03/27/25 10:40 PMFSH Past Medical History Medical History Reducible right inguinal hernia Cocaine abuse Back pain Arthritis History of headache Numbness Wheezing Rash and nonspecific skin eruption Back disorder Asthma Skin lesion Bilateral impacted cerumen Upper respiratory tract infection Acquired syphilis Screening for STD (sexually transmitted disease) Polyuria Penile discharge Lichenification Laboratory examination ordered as part of a routine general medical examination Tinea barbae Folliculitis GERD (gastroesophageal reflux disease) ETOH abuse Depression Anxiety Family History Family History Father Alcohol abuse Other Substance abuse Surgical History Surgical History H/O left inguinal hernia repair (11/16/24) Hx of tooth extraction History of tonsillectomy No pertinent past surgical history Social History Social History Housing: Apartment Are you a primary manager critical care unit to a significant other at home: No Do you presently have visiting nurse or other home services: No Alcohol intake: never Patient Tobacco Use Status: Former Tobacco user Cigarette Packs Per Day: 1 Years Smoked: 20 e-Cigarette/Vaping Use: Never Used Substance Use Type: Marijuana Have you been hit, kicked, punched, or otherwise hurt by someone within the past year? If so, by whom?: No Are you DNR?: No Advance Directives: No Advance Directives Information Provided: Yes service: No Current occupational status: unemployed Current occupational exposures/hazards: No Cognitive needs: No Hearing needs: No Vision needs: No Meds Allergies Allergy/AdvReac Type Severity Reaction Status Date / Time penicillin V Allergy Unknown Nausea and Verified 03/23/25 11:33 Vomiting Penicillins (PENICILLINS) Allergy Unknown NAUSEA/VOMI Verified 03/23/25 11:33 TING MUSCLE RELAXER Allergy Unknown FOAMING AT Uncoded 03/23/25 11:33 THE MOUTH - CANNOT REMEMBER NAME OF DRUG Home Medications ?Medication ?Instructions ?Recorded ?Confirmed ?Last Taken ?Type omeprazole 20 mg capsule,delayed 20 mg PO DAILY PRN Ac id Reflux 11/09/24 03/27/25 03/27/25 History release Exam Airway Mallampati Class: II TM Dist: >3cm Neck ROM: Full Loose/Missing/Broken Teeth: Yes Assessment and Plan Assessment Anesthesia Assessment: Anesthesia Plan Discussed and Chart Reviewed Final Anesthetic Review NPO: Yes ASA Class: III Final Preanesthetic Review: No Changes in Pt Med Stat, Meds/Allgs Chart Reviewed, Consent Obtained/Reviewed and Anes Risks/Benef Reviewed Patient Risk: Intermediate Procedure Risk: Low Anesthetic Plan Anesthetic Plan: GA Disposition: Standard PACU
[2025-03-27 05:47] VITALS: BMI 22.6
[2025-03-27 09:10] VITALS: BP 126/86; PULSE 78; RESP 18; TEMP 36.9; O2SAT 96; BMI 22.7
[2025-03-27] MEDS: Lactated Ringers 1,000 ML 100 ML IVCONT (09:19)
[2025-03-27 09:24] LABS: Cannabinoid Screen Urine POSITIVE (Not Detect)
--- NOTE | 2025-03-27 09:41 | MHC.SHP ---
Pre-Procedural Eval Section A - 24 Hr Update-Section A only Date of Service: 03/27/25 Section B - Complete if H&P > 30 days Chief Complaint: Unilateral inguinal hernia, without obstruction Details of Present Illness: He has a reducible right inguinal hernia Relevant Family History (Specify if Yes): No Relevant Social History: None Present Medications: see Short Stay Collaborative assessment Medical History: Significant History (Anxiety depression, asthma, history of alcohol abuse, history of polysubstance abuse) Allergies: Allergies Allergy/AdvReac Type Severity Reaction Status Date / Time penicillin V Allergy Unknown Nausea and Verified 03/23/25 11:33 Vomiting Penicillins (PENICILLINS) Allergy Unknown NAUSEA/VOMI Verified 03/23/25 11:33 TING MUSCLE RELAXER Allergy Unknown FOAMING AT Uncoded 03/23/25 11:33 THE MOUTH - CANNOT REMEMBER NAME OF DRUG Review of Systems Sugical H&P ROS: Negative: Constitution, Cardiovascular, Respiratory and Gastrointestinal Exam Surgical H&P Exam: Normal: Heart and Normal: Lungs and Significant Findings: Abdomen (Right hernia reducible) Plan Diagnosis/Plan: Unchanged I have reviewed the history and physical and performed a pertinent physical examination on my patient. No changes have occurred unless specified. Time Spent With Patient Time: Total time managing care of this patient today ____ minutes.
--- NOTE | 2025-03-27 10:56 | P.OP_ITS ---
Operative Note Operative Note Date of Service: 03/27/25 Narrative: Preop diagnosis: Right inguinal hernia, reducible Postop diagnosis: Right inguinal hernia, reducible Procedure: Repair of right inguinal hernia with mesh Surgeon: Jay Briones MD butcher's assistant: KIET Castaneda The patient is a 55-year-old male with a reducible mass in the right groin consistent with an inguinal hernia. He understood the technique of the planned procedure as well as the risks, benefits, and alternatives.. He was brought to the operating room. He was placed supine under general anesthesia via general mask airway. The right groin was prepped and draped in the usual sterile fashion. A surgical time-out was done. The patient received cefazolin 2 g IV preoperatively I infiltrated the planned line of incision with lidocaine 1%. I made a short incision on the skin along an imaginary line from anterior superior iliac spine to be pubic ramus with a blade 15. This was carried down with electrocautery through the full-thickness of the skin and subcutaneous fat until the external oblique aponeurosis was visualized. I bluntly dissected the aponeurosis to define the external ring. I then made an incision on the external oblique aponeurosis with a blade 15 and extended this inferomedially to connect with the external ring. The inguinal canal was therefore entered. I applied hemostasis on the divided edges of the aponeurosis. I did blunt dissection with a finger under need the cirrhosis to create space for the mesh. The spermatic cord with a large sac was noted. I bluntly dissected the cord with the index finger until was able to pass a [place] drain around this. The [place] drain was used for retraction. I carefully the large hernia sac from the rest of the cord contents. I was able to identify the vas deferens and this was protected along with the vessels he had a dissection I carefully the sac off of the rest of the cord contents until was able to reduce through the internal ring. This was therefore an indirect hernia I reinforced the internal ring with a medium-sized plug. The plug was secured to the shelving edge of the inguinal meant laterally, and the internal oblique superiorly medially using the inner leaves of the plug with Prolene 2-0 sutures I reinforced the entire floor of the canal with a keyhole mesh. The tails of the mesh were passed around the cord at the level of the internal ring and were secured together with Prolene 2-0 sutures. I flattened the mesh. I secured the mesh to the shelving edge of the inguinal meant laterally, the internal oblique superiorly medially, as well as the pubic ramus inferomedially with Prolene 2-0 sutures We observed for hemostasis. Once hemostasis was confirmed, we irrigated and suctioned out the irrigant fluid. I then reapposed the divided external oblique aponeurosis with a running Polysorb 2-0 stitch to re-create the external ring. The subcutaneous layer was reapposed with Polysorb 3-0 simple interrupted sutures. Skin closure was achieved with Polysorb 4-0 subcuticular running stitch . The incision was infiltrated with Marcaine 0.5% for postop analgesia. Dressings were applied and the procedure was completed. The patient tolerated the procedure well. There were no immediate complications. Initial and final counts of sponges and instruments were correct. Estimated blood loss was less than 25 cc. The patient was extubated without difficulty and transferred to the recovery room with stable vital signs.
[2025-03-27 11:12] VITALS: BP 150/100; PULSE 77; RESP 12; TEMP 36.6; O2SAT 98
[2025-03-27 11:17] VITALS: BP 152/97; PULSE 88; RESP 15; O2SAT 98
[2025-03-27 11:22] VITALS: BP 148/103; PULSE 89; RESP 13; O2SAT 97
[2025-03-27 11:27] VITALS: BP 140/91; PULSE 70; RESP 14; O2SAT 98
[2025-03-27] MEDS: oxyCODONE HCl Immed Release 5 MG TABLET PO (11:29)
[2025-03-27 11:42] VITALS: BP 142/105; PULSE 80; RESP 12; TEMP 36.4; O2SAT 98
== END 2025-03-27 12:38 | disposition home or self-care (01) ==
PROVIDERS: Nurse Practitioner; PCP Nurse Practitioner Family; Visit Provider Surgery
PROC: (CPT 49505; principal; 2025-03-27 10:40)
DX: K40.90 Unilateral inguinal hernia, without obstruction or gangrene, not specified as recurrent (principal); F10.10 Alcohol abuse, uncomplicated; F14.10 Cocaine abuse, uncomplicated; F12.90 Cannabis use, unspecified, uncomplicated; K21.9 Gastro-esophageal reflux disease without esophagitis; J45.909 Unspecified asthma, uncomplicated; B35.0 Tinea barbae and tinea capitis; M54.9 Dorsalgia, unspecified; A53.9 Syphilis, unspecified; L73.9 Follicular disorder, unspecified; L28.0 Lichen simplex chronicus; F32.A Depression, unspecified; F41.9 Anxiety disorder, unspecified; Z79.899 Other long term (current) drug therapy; Z88.0 Allergy status to penicillin; Z88.8 Allergy status to other drugs, medicaments and biological substances; Z98.890 Other specified postprocedural states; Z87.891 Personal history of nicotine dependence; Z56.0 Unemployment, unspecified
CPT/HCPCS: 49505; 80307; C1781; J0131; J0668; J0690; J1100; J1885; J2003; J2405; J2704; J2795; J3010

== ENCOUNTER → 2025-03-27 08:44 | Outpatient (BNV) | payer MEDICARE, MEDICAID, SELFPAY | PROVIDERS: PCP Nurse Practitioner Family; Visit Provider Surgery | DX: K40.90 Unilateral inguinal hernia, without obstruction or gangrene, not specified as recurrent (principal) | CPT/HCPCS: 49505 ==

== ENCOUNTER → 2025-04-02 10:24 | Outpatient (BNVA) | payer MEDICARE, MEDICAID, SELFPAY | PROVIDERS: PCP Nurse Practitioner Family; Visit Provider Surgery | DX: Z48.01 Encounter for change or removal of surgical wound dressing (principal) | CPT/HCPCS: 99211 ==

== ENCOUNTER 2025-04-11 10:43 | Outpatient (AMB) | payer MEDICARE, MEDICAID, SELFPAY ==
--- NOTE | 2025-04-11 10:46 | MHC.OFFVIS ---
Vital Signs 04/11/25 10:51 Height 5 ft 8 in Weight 153 lb 8 oz BMI 23.3 BP 141/87 H Blood Pressure Location Rt brachial Position Sitting Pulse 92 Intake Visit Reasons: S/P RIH w/mesh Intake Note: Patient presents for post-op assessment status post Repair of right inguinal hernia with mesh.(03/27/2025) Pt c/o; reports pain, reports no drainage or discharge from incisions,denies fever, chills, nausea or vomiting. 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 He tolerated the procedure well. He currently denies significant complaints. [facility] Medical History Reducible right inguinal hernia Cocaine abuse Back pain Arthritis History of headache Numbness Wheezing Rash and nonspecific skin eruption Back disorder Asthma Skin lesion Bilateral impacted cerumen Upper respiratory tract infection Acquired syphilis Screening for STD (sexually transmitted disease) Polyuria Penile discharge Lichenification Laboratory examination ordered as part of a routine general medical examination Tinea barbae Folliculitis GERD (gastroesophageal reflux disease) ETOH abuse Depression Anxiety Surgical History History of right inguinal hernia repair (~03/27/25) H/O left inguinal hernia repair (11/16/24) Hx of tooth extraction History of tonsillectomy No pertinent past surgical history Family History Father Alcohol abuse Other Substance abuse Social History Housing: Apartment Are you a primary assistant child care teacher to a significant other at home: No Do you presently have visiting nurse or other home services: No Alcohol intake: never Comment: medicated Patient Tobacco Use Status: Former Tobacco user Cigarette Packs Per Day: 1 Years Smoked: 20 e-Cigarette/Vaping Use: Never Used Substance Use Type: Marijuana service: No Current occupational status: unemployed Current occupational exposures/hazards: No Cognitive needs: No Hearing needs: No Vision needs: No Review of Systems Const Denies chills and Denies fever(s) Card Denies dyspnea on exertion Resp Denies dyspnea on exertion GI Denies abdominal pain Physical Exam Vital Signs: Last Vital Signs Pulse 92 04/11/25 10:51 BP 141/87 H 04/11/25 10:51 BMI result Body Mass Index 23.3 Const General: comfortable and no acute distress Resp Effort & Inspection: normal respiratory effort GI Other: Inguinal hernia repair site on the right is well healed, not infected, repair intact Palpation (GI): Soft to palpation, not firm, nontender and no guarding Assessment & Plan Assessment & Plan (1) Reducible right inguinal hernia: Code(s): K40.90 - Unilateral inguinal hernia, without obstruction or gangrene, not specified as recurrent Category: Medical Plan: Status post repair with mesh. He is doing very well. The repair site is intact. Incision is well healed. He can therefore follow up on a p.r.n. basis I advised him to avoid any lifting more than 20 lb for at least 2 more weeks. Medications: Refilled ibuprofen 600 mg PO Q6H PRN 20 tabs 0RF pain oxycodone-acetaminophen 5-325 mg Partial Fill upon patient request. 1 tab PO TID PRN 10 tabs 0RF pain Coding Level of Care Code Global (94598) Diagnoses Reducible right inguinal hernia K40.90
[2025-04-11 10:51] VITALS: BP 141/87; PULSE 92; BMI 23.3
== END 2025-04-11 10:57 | disposition home or self-care (01) ==
LOC: HO.HGS 10:44
PROVIDERS: PCP Nurse Practitioner Family; Visit Provider Surgery
DX: K40.90 Unilateral inguinal hernia, without obstruction or gangrene, not specified as recurrent (principal)
CPT/HCPCS: 99024

== ENCOUNTER → 2025-04-11 10:43 | Outpatient (BNVA) | payer MEDICARE, MEDICAID, SELFPAY | PROVIDERS: PCP Nurse Practitioner Family; Visit Provider Surgery | DX: Z09 Encounter for follow-up examination after completed treatment for conditions other than malignant neoplasm (principal); Z87.19 Personal history of other diseases of the digestive system; Z98.890 Other specified postprocedural states | CPT/HCPCS: 99212 ==

== ENCOUNTER 2025-04-13 14:38 | Outpatient (AMB) | payer MEDICARE, MEDICAID, SELFPAY ==
[2025-04-13 14:47] VITALS: BP 118/80; PULSE 93; O2SAT 98; BMI 23.3
--- NOTE | 2025-04-13 14:47 | MHC.OFFWIV ---
Intake Vital Signs 04/13/25 14:47 Height 5 ft 8 in Weight 153 lb BMI 23.3 BP 118/80 Blood Pressure Location Lt brachial Position Sitting Pulse 93 Pulse Source Pulse Oximeter Pulse Oximetry (%) 98 Oxygen Delivery Method Room Air Intake Visit Reasons: EP Injury to penis Intake Note: Patient presents c/o cut/sore on penis x3 days that he thinks is related to it getting caught in his zipper. Patient Tobacco Use Status: Former Tobacco user Allergies penicillin V Allergy (Unknown, Verified 04/13/25 14:52) Nausea and Vomiting Penicillins (PENICILLINS) Allergy (Unknown, Verified 04/13/25 14:52) NAUSEA/VOMITING MUSCLE RELAXER Allergy (Unknown, Uncoded 04/13/25 14:52) FOAMING AT THE MOUTH - CANNOT REMEMBER NAME OF DRUG HPI HPI Comments History of Present Illness Details This is a 55-year-old male who presented to the walk-in clinic complaining of penile irritation x 2 weeks. He states the skin sometimes gets dry and splits . He states he has been trying to keep the area dry with baby powder but somtimes uses vaseline when the area gets chapped and dry. He does have a known history of syphilis but states that he is followed for this and does not require treatment at this time. He denies any concern for STDs at this time. He denies any penile discharge, painful ejaculation, dysuria, urinary frequency, urinary urgency, or hematuria. He denies any fevers or chills. FORMERLY [facility], [facility] Medical History Reducible right inguinal hernia Cocaine abuse Back pain Arthritis History of headache Numbness Wheezing Rash and nonspecific skin eruption Back disorder Asthma Skin lesion Bilateral impacted cerumen Upper respiratory tract infection Acquired syphilis Screening for STD (sexually transmitted disease) Polyuria Penile discharge Lichenification Laboratory examination ordered as part of a routine general medical examination Tinea barbae Folliculitis GERD (gastroesophageal reflux disease) ETOH abuse Depression Anxiety Surgical History History of right inguinal hernia repair (~03/27/25) H/O left inguinal hernia repair (11/16/24) Hx of tooth extraction History of tonsillectomy No pertinent past surgical history Family History Father Alcohol abuse Other Substance abuse Social History Housing: Apartment Are you a primary child care attendant school to a significant other at home: No Do you presently have visiting nurse or other home services: No Alcohol intake: never Comment: medicated Patient Tobacco Use Status: Former Tobacco user Cigarette Packs Per Day: 1 Years Smoked: 20 e-Cigarette/Vaping Use: Never Used Substance Use Type: Marijuana service: No Current occupational status: unemployed Current occupational exposures/hazards: No Cognitive needs: No Hearing needs: No Vision needs: No Review of Systems Const All systems reviewed & are unremarkable except as noted in HPI and below Reports no additional complaints Eyes Reports no additional complaints ENT Reports no additional complaints Card Reports no additional complaints Resp Reports no additional complaints GI Reports no additional complaints Reports no additional complaints Musc Reports no additional complaints Skin/Breast Reports system reviewed and no additional complaints, except as documented Neuro Reports no additional complaints Psych Reports no additional complaints Endo Reports no additional complaints Joshua/Lymph Reports no additional complaints Aller/Immun Reports no additional complaints Physical Exam Exam Exam: Vital signs reviewed. Constitutional: Non-toxic appearing. No acute distress. Well-developed and well-nourished. HEENT: Normocephalic and atraumatic. PERRL/EOMI. Skin: Warm and dry. There is erythema of the glans with several fissure-like lesions and thick, white drainage. Neck: Full and painless range of motion. No cervical lymphadenopathy. Cardio: Regular rate. No lower extremity edema. No JVD. Pulmonary: No respiratory distress. No accessory muscle usage. Musculoskeletal: Normal range of motion in joints throughout the body. No deformity or other signs of injury. Neuro: Alert and oriented x4. Cranial nerves 2-12 grossly intact. No focal deficits appreciated. Psych: Normal mood and affect. Vital Signs: Last Vital Signs Pulse 93 04/13/25 14:47 BP 118/80 04/13/25 14:47 Pulse Ox 98 04/13/25 14:47 Oxygen Delivery Method Room Air 04/13/25 14:47 BMI result Body Mass Index 23.3 Assessment & Plan Assessment & Plan (1) Balanitis: Code(s): N48.1 - Balanitis Plan 55-year-old male who presented to the walk-in clinic complaining of penile irritation x 2 weeks. On physical examination, there is erythema of the glans with several fissure like lesions with thick white drainage. History and physical appear to be most consistent with candidal balanitis. Patient was given a prescription for 1% clotrimazole cream twice daily x2 weeks. I also encouraged good hygiene including keeping the area clean with gentle soaps, keeping the area dry, and wearing loose fitting clothing. Patient was advised to follow-up here if his symptoms persist. Patient verbalizes understanding and he is in agreement with the plan. Medications: New clotrimazole 1% 1 appl topical BID 30 grams 0RF 2 weeks Coding Level of Care Code Est Pt Level 3 (74731) Diagnoses Balanitis N48.1
== END 2025-04-13 15:32 | disposition home or self-care (01) ==
PROVIDERS: PCP Nurse Practitioner Family; Visit Provider Physician Assistant Medical
DX: N48.1 Balanitis (principal)

== ENCOUNTER → 2025-04-13 14:38 | Outpatient (BNVA) | payer MEDICARE, MEDICAID, SELFPAY | PROVIDERS: PCP Nurse Practitioner Family; Visit Provider Physician Assistant Medical | DX: N48.1 Balanitis (principal) | CPT/HCPCS: 99212 ==